=== PATIENT | male | born 1970 | race Hispanic/Latino ===

== ENCOUNTER 2018-07-25 08:13 | Inpatient (IN) | payer OTHER | END 2018-07-27 16:49 | disposition home or self-care (01) | LOC: EDH 08:13 → EDHIP 07-26 00:31 → 2AH 07-26 00:41 → EDHIP 08:14 → 2AH 20:40 → EDHIP 21:16 → 2AH 22:59 | DX: G47.33 Obstructive sleep apnea (adult) (pediatric) (principal); Z68.43 Body mass index [BMI] 50.0-59.9, adult; R07.89 Other chest pain; E66.01 Morbid (severe) obesity due to excess calories; E78.5 Hyperlipidemia, unspecified ==

== ENCOUNTER 2018-08-15 16:57 | Emergency (ER) | payer SELFPAY ==
[2018-08-15 17:50] LABS: BASOPHILS % (AUTO) 1.2 % (0.0-5.0); EOSINOPHILS % (AUTO) 1.2 % (0.0-8.0); HEMATOCRIT 44.9 % (42-54); LYMPHOCYTES % (AUTO) 20.5 % (21.0-51.0); MEAN CORPUSCULAR HEMOGLOBIN 29.8 pg (27.0-33.0); MEAN CORPUSCULAR VOLUME 90.1 fL (79-99); NEUTROPHILS % (AUTO) 71.1 % (40.0-77.0); PLATELET COUNT (AUTO) 262 K/uL (130-400); RED BLOOD CELL COUNT(AUTO) 4.99 MIL/uL (4.50-6.20); RED CELL DISTRIBUTION WIDTH 12.9 % (11.0-15.5); WHITE BLOOD COUNT (AUTO) 13.2 K/uL (4.8-10.8)
[2018-08-15 18:01] LABS: APPEARANCE,URINE Clear (CLEAR); BILIRUBIN,URINE Negative (NEGATIVE); COLOR,URINE Yellow (YELLOW); GLUCOSE, URINE (UA) Negative (NEGATIVE); KETONES,URINE Negative (NEGATIVE); LEUKOCYTE ESTERASE ,URINE Negative (NEGATIVE); NITRATE,URINE Negative (NEGATIVE); OCCULT BLOOD,URINE Negative (NEGATIVE); PROTEIN,URINE Negative (NEGATIVE)
[2018-08-15 18:01] LABS: INR 0.95 (0.85-1.15)
[2018-08-15 18:13] LABS: CREATININE 0.9 mg/dL (0.5-1.5); POTASSIUM 4.4 mmol/L (3.5-5.1)
[2018-08-15 18:17] LABS: BILIRUBIN,TOTAL 0.7 mg/dL (0.2-1.0)
[2018-08-15 18:18] LABS: ALBUMIN 3.5 g/dL (3.5-5.0)
[2018-08-15 18:24] LABS: AMPHET/METH SCREEN,URINE NEGATIVE (NEGATIVE); BARBITURATE SCREEN, URINE NEGATIVE (NEGATIVE); BENZODIAZEPINES SCREEN,URINE NEGATIVE (NEGATIVE); CANNABINOID SCREEN,URINE NEGATIVE (NEGATIVE); COCAINE SCREEN,URINE NEGATIVE (NEGATIVE); OPIATE SCREEN,URINE NEGATIVE (NEGATIVE); PHENCYCLIDINE SCREEN,URINE NEGATIVE (NEGATIVE)
[2018-08-15] MEDS ORDERED: TRAMADOL HCL 50 MG TABLET ONE (19:42)
== END 2018-08-15 20:17 | disposition home or self-care (01) ==
LOC: EDH 16:57
DX: M25.561 Pain in right knee (principal); M25.562 Pain in left knee; M54.5 Low back pain; G89.29 Other chronic pain; I10 Essential (primary) hypertension; Z98.890 Other specified postprocedural states; Z87.891 Personal history of nicotine dependence; W18.39XA Other fall on same level, initial encounter; Y93.89 Activity, other specified; Y92.89 Other specified places as the place of occurrence of the external cause; Y99.8 Other external cause status
CPT/HCPCS: 36415; 72131; 73562; 80053; 80305; 81003; 82550; 84484; 85025; 85610; 85730; 93005

== ENCOUNTER 2018-09-04 16:56 | Emergency (ER) | payer OTHER ==
[2018-09-04 17:58] LABS: BASOPHILS % (AUTO) 0.8 % (0.0-5.0); EOSINOPHILS % (AUTO) 1.6 % (0.0-8.0); HEMATOCRIT 47.4 % (42-54); MEAN CORPUSCULAR HEMOGLOBIN 30.2 pg (27.0-33.0); MEAN CORPUSCULAR HGB CONC 33.4 g/dL (32.0-36.0); MEAN CORPUSCULAR VOLUME 90.2 fL (79-99); MONOCYTES % (AUTO) 8.4 % (3.0-13.0); NEUTROPHILS % (AUTO) 65.2 % (40.0-77.0); NUCLEATED RED BLOOD CELLS 0.1 % (0.0-0.19); PLATELET COUNT (AUTO) 266 K/uL (130-400); RED BLOOD CELL COUNT(AUTO) 5.25 MIL/uL (4.50-6.20); RED CELL DISTRIBUTION WIDTH 13.5 % (11.0-15.5); WHITE BLOOD COUNT (AUTO) 10.7 K/uL (4.8-10.8)
[2018-09-04 18:18] LABS: CREATININE 0.8 mg/dL (0.5-1.5); POTASSIUM 4.4 mmol/L (3.5-5.1)
[2018-09-04 18:23] LABS: ALBUMIN 3.6 g/dL (3.5-5.0); BILIRUBIN,TOTAL 0.4 mg/dL (0.2-1.0)
[2018-09-04] MEDS ORDERED: CYCLOBENZAPRINE HCL 10 MG TABLET ONE (18:50)
[2018-09-04] MEDS ORDERED: KETOROLAC TROMETHAMINE 30MG/ML ONE (18:50)
== END 2018-09-04 20:08 | disposition home or self-care (01) ==
LOC: EDH 16:56
DX: R07.89 Other chest pain (principal); M62.838 Other muscle spasm; I10 Essential (primary) hypertension
CPT/HCPCS: 36415; 71045; 72040; 80053; 84484 ×2; 85025; 93005 ×2; 96374; 99284; J1885

== ENCOUNTER 2018-09-18 13:48 | Emergency (ER) | payer SELFPAY ==
[2018-09-18] MEDS ORDERED: FAMOTIDINE/PF 20 MG/2 ML VIAL IV ONE (15:20)
[2018-09-18 15:31] LABS: BASOPHILS % (AUTO) 0.9 % (0.0-5.0); EOSINOPHILS % (AUTO) 1.3 % (0.0-8.0); HEMATOCRIT 49.1 % (42-54); LYMPHOCYTES % (AUTO) 25.1 % (21.0-51.0); MEAN CORPUSCULAR HEMOGLOBIN 29.9 pg (27.0-33.0); MEAN CORPUSCULAR HGB CONC 33.1 g/dL (32.0-36.0); MEAN CORPUSCULAR VOLUME 90.3 fL (79-99); MONOCYTES % (AUTO) 7.1 % (3.0-13.0); NEUTROPHILS % (AUTO) 65.6 % (40.0-77.0); PLATELET COUNT (AUTO) 275 K/uL (130-400); RED BLOOD CELL COUNT(AUTO) 5.44 MIL/uL (4.50-6.20); RED CELL DISTRIBUTION WIDTH 13.1 % (11.0-15.5); WHITE BLOOD COUNT (AUTO) 11.6 K/uL (4.8-10.8)
[2018-09-18 15:36] LABS: APPEARANCE,URINE Clear (CLEAR); BILIRUBIN,URINE Negative (NEGATIVE); COLOR,URINE Yellow (YELLOW); GLUCOSE, URINE (UA) Negative (NEGATIVE); KETONES,URINE Trace mg/dL (NEGATIVE); LEUKOCYTE ESTERASE ,URINE Negative (NEGATIVE); NITRATE,URINE Negative (NEGATIVE); OCCULT BLOOD,URINE Negative (NEGATIVE); PH,URINE 5.5 (5.0-8.0); PROTEIN,URINE Negative (NEGATIVE)
[2018-09-18 15:47] LABS: CREATININE 0.8 mg/dL (0.5-1.5); POTASSIUM 4.1 mmol/L (3.5-5.1)
[2018-09-18 15:51] LABS: ALBUMIN 3.8 g/dL (3.5-5.0); BILIRUBIN,DIRECT 0.1 mg/dL (0.0-0.3); BILIRUBIN,TOTAL 0.6 mg/dL (0.2-1.0); TOTAL PROTEIN, SERUM 8.2 g/dL (6.0-8.3)
== END 2018-09-18 17:19 | disposition home or self-care (01) ==
LOC: EDH 13:48
DX: R10.13 Epigastric pain (principal); B96.81 Helicobacter pylori [H. pylori] as the cause of diseases classified elsewhere; I10 Essential (primary) hypertension; Z72.0 Tobacco use
CPT/HCPCS: 36415; 80048; 80076; 81003; 83690; 85025; 86677; 96365; 96366; 99283; J3490

== ENCOUNTER → 2021-03-03 | Outpatient (CLI) | payer OTHER ==
[~2021-03-03] VITALS: Ht 17.8 cm; Wt 186.0 kg
[~2021-03-03] MED LIST: CITA10TA89 PO; LOSA50TA64 PO; METO-408 PO
== END | disposition home or self-care (01) ==
LOC: DAH 10:00
PROVIDERS: ATTEND Family Medicine
DX: Z71.3 Dietary counseling and surveillance (principal)
CPT/HCPCS: 97802

== ENCOUNTER 2021-04-22 08:06 | Day surgery (SDC) | payer MEDICARE, OTHER ==
[2021-04-22] VITALS (7 sets, daily range): BP systolic 113–154; BP diastolic 73–94
[~2021-04-22] VITALS: Ht 170.2 cm; Wt 190.5 kg
[2021-04-22] MEDS ORDERED: 0.9%NACL 1000ML 1,000 ML IV ONE (08:13)
[2021-04-22] MEDS ORDERED: LOSA50TA64 PO (08:54)
[2021-04-22] MEDS ORDERED: METO-408 PO (08:54)
[2021-04-22] MEDS ORDERED: CITA10TA89 PO (08:54)
[2021-04-22] MEDS ORDERED: LIDOCAINE PF 100MG/5ML (2%) SYRINGE 5ML ONE (10:13)
[2021-04-22] MEDS ORDERED: MIDAZOLAM HCL 1 MG/ML 2ML VIAL ONE (10:14)
[2021-04-22] MEDS ORDERED: PROPOFOL 10 MG/ML 20ML VIAL IV ONE (10:14)
[2021-04-22] MEDS ORDERED: GLYCOPYRROLATE 1 MG/5 ML SYRINGE ONE (10:14)
[2021-04-22] MEDS ORDERED: KETAMINE 50MG/ML SYRINGE 50 MG/ML DISP.SYRIN IV ONE (10:14)
[2021-06-24] MEDS ORDERED: ESCITA PO (10:18)
[2021-06-24] MEDS ORDERED: ACET-2521 PO (10:18)
[2021-06-24] MEDS ORDERED: IRON PO (10:18)
== END 2021-04-22 11:23 | disposition home or self-care (01) ==
LOC: DAH 08:06
PROVIDERS: ATTEND Surgery
DX: K21.9 Gastro-esophageal reflux disease without esophagitis (principal); Z20.822 Contact with and (suspected) exposure to COVID-19; I10 Essential (primary) hypertension; E66.01 Morbid (severe) obesity due to excess calories; F32.9 Major depressive disorder, single episode, unspecified; F41.9 Anxiety disorder, unspecified; Z82.49 Family history of ischemic heart disease and other diseases of the circulatory system; Z82.3 Family history of stroke; Z79.899 Other long term (current) drug therapy; Z68.44 Body mass index [BMI] 60.0-69.9, adult
CPT/HCPCS: 43235; 71045; 87635; 93005; A4215 ×2; A4221; A4222; A4223; A4606; A4620; A4657; A4663; C9803; J2001; J2250; J2704; J3490 ×2; J7030

== ENCOUNTER 2021-06-27 08:20 | Inpatient (IN) | payer OTHER ==
[2021-06-23 14:42] LABS: BASOPHILS % (AUTO) 0.7 % (0.0-5.0); EOSINOPHILS % (AUTO) 0.9 % (0.0-8.0); HEMATOCRIT 51.4 % (42-54); LYMPHOCYTES % (AUTO) 19.1 % (21.0-51.0); MEAN CORPUSCULAR HGB CONC 32.3 g/dL (32.0-36.0); MEAN CORPUSCULAR VOLUME 92.8 fL (79-99); MONOCYTES % (AUTO) 6.4 % (3.0-13.0); NEUTROPHILS % (AUTO) 72.1 % (40.0-77.0); PLATELET COUNT (AUTO) 260 K/uL (130-400); RED BLOOD CELL COUNT(AUTO) 5.54 MIL/uL (4.50-6.20); RED CELL DISTRIBUTION WIDTH 12.4 % (11.0-15.5); WHITE BLOOD COUNT (AUTO) 13.3 K/uL (4.8-10.8)
[2021-06-23 14:52] LABS: CREATININE 0.9 mg/dL (0.5-1.5)
[2021-06-23 14:55] LABS: INR 1.1 (0.85-1.15); PROTHROMBIN TIME 11.9 SEC (9.6-11.6)
[2021-06-24] MEDS: CEFAZOLIN SODIUM 1 GM VIAL IVP SCH (06:00)
[2021-06-24 09:36] VITALS: BP 163/92
[2021-06-25] MEDS: CEFAZOLIN SODIUM 1 GM VIAL IVP SCH (06:00)
[~2021-06-27] VITALS: Ht 170.2 cm; Wt 190.1 kg
[2021-06-27] VITALS (25 sets, daily range): BP systolic 126–177; BP diastolic 70–97
[2021-06-27] MEDS: CEFAZOLIN SODIUM 1 GM VIAL IVP SCH ×3 (06:00→15:47)
[~2021-06-27 08:20] MED LIST changes: +ACET-2521 PO; -CITA10TA89 PO; +ESCITA PO; +IRON PO
[2021-06-27] MEDS: 0.9%NACL 1000ML 1,000 ML IV SCH ×2 (09:38→14:55)
[2021-06-27] MEDS ORDERED: ESCI-8 PO (09:49)
[2021-06-27] MEDS ORDERED: BUPIVACAINE/PF 0.5% 30ML VIAL ONE (11:58)
[2021-06-27] MEDS ORDERED: SCOPOLAMINE HYDROBROMIDE 1 EACH ADH..PATCH TD ONE (12:20)
[2021-06-27] MEDS ORDERED: DEXMEDETOMIDINE HCL 200 MCG/2 ML VIAL IV ONE (12:21)
[2021-06-27] MEDS ORDERED: MIDAZOLAM HCL 1 MG/ML 2ML VIAL ONE (12:22)
[2021-06-27] MEDS ORDERED: ONDANSETRON 4MG INJ ONE ×2 (12:22→13:34)
[2021-06-27] MEDS ORDERED: PROPOFOL 10 MG/ML 20ML VIAL IV ONE ×2 (12:24→13:56)
[2021-06-27] MEDS ORDERED: LIDOCAINE PF 100MG/5ML (2%) SYRINGE 5ML ONE (12:24)
[2021-06-27] MEDS ORDERED: SUCCINYLCHOLINE 200MG/10ML SYR ONE (12:24)
[2021-06-27] MEDS ORDERED: ROCURONIUM 10MG/1ML SYR 10 MG/ML ML ONE (12:24)
[2021-06-27] MEDS ORDERED: MAGNESIUM SULFATE 1 GM/2 ML VIAL ONE (12:37)
[2021-06-27] MEDS ORDERED: CEFAZOLIN SODIUM 1 GM VIAL ONE (12:46)
[2021-06-27] MEDS ORDERED: EPHEDRINE SULFATE 50 MG/ML AMPULE ONE (13:24)
[2021-06-27] MEDS ORDERED: DEXAMETHASONE SOD PHOSPHATE 10MG/ML 1ML VIAL ONE (13:40)
[2021-06-27] MEDS ORDERED: MEPERIDINE-PF 25 MG/ML SYG ONE ×3 (14:24→15:09)
[2021-06-27] MEDS ORDERED: GLYCOPYRROLATE 1 MG/5 ML SYRINGE ONE (14:26)
[2021-06-27] MEDS ORDERED: NEOSTIGMINE 5MG/5ML SYR IV ONE (14:26)
[2021-06-27] MEDS ORDERED: MORPHINE 5 MG/ML VIAL (5MG OR GREATER DOSE) IVP PRN (14:30)
[2021-06-27] MEDS ORDERED: CEFAZOLIN SODIUM 100 GM IV SCH ×2 (14:30→20:45)
[2021-06-27] MEDS ORDERED: SUGAMMADEX SODIUM 200 MG/2 ML VIAL IV ONE (14:37)
[2021-06-27] MEDS ORDERED: PHARMACY COMMUNICATION MISC SCH (15:30)
[2021-06-27] MEDS ORDERED: COMPOUND IV REFRIGERATED 1 EACH IVSOLN MISC PRN (16:00)
[2021-06-27] MEDS: LACTATED RINGERS 1000ML 1,000 ML IV SCH ×2 (16:51→22:30)
[2021-06-27] MEDS: ONDANSETRON 4MG INJ IVP PRN (19:12)
[2021-06-27] MEDS: FAMOTIDINE 20MG VIAL IV SCH (20:09)
[2021-06-27] MEDS: MORPHINE 4 MG SYG IVP PRN (20:13)
[2021-06-27] MEDS: ENOXAPARIN SODIUM 30 MG/0.3 ML SQ SCH (20:15)
[2021-06-27] MEDS: CEFAZOLIN SODIUM 3 GM in 0.9%NACL 100ML 100 ML IVP SCH (23:36)
[2021-06-28] MEDS: ONDANSETRON 4MG INJ IVP PRN ×4 (01:29→22:54)
[2021-06-28] MEDS: MORPHINE 4 MG SYG IVP PRN ×5 (01:31→22:56)
[2021-06-28] MEDS ORDERED: LOSARTAN 50 MG TABLET ONE (03:48)
[2021-06-28] MEDS: LOSARTAN 50 MG TABLET PO SCH ×2 (03:50→09:17)
[2021-06-28 04:40] VITALS: BP 162/108
[2021-06-28] MEDS: LACTATED RINGERS 1000ML 1,000 ML IV SCH ×3 (05:36→22:56)
[2021-06-28 05:48] LABS: BASOPHILS % (AUTO) 0.1 % (0.0-5.0); HEMATOCRIT 44.9 % (42-54); LYMPHOCYTES % (AUTO) 11.1 % (21.0-51.0); MEAN CORPUSCULAR HEMOGLOBIN 29.7 pg (27.0-33.0); MEAN CORPUSCULAR HGB CONC 31.6 g/dL (32.0-36.0); MEAN CORPUSCULAR VOLUME 93.9 fL (79-99); MONOCYTES % (AUTO) 7.4 % (3.0-13.0); PLATELET COUNT (AUTO) 306 K/uL (130-400); RED BLOOD CELL COUNT(AUTO) 4.78 MIL/uL (4.50-6.20); RED CELL DISTRIBUTION WIDTH 11.9 % (11.0-15.5); WHITE BLOOD COUNT (AUTO) 16.2 K/uL (4.8-10.8)
[2021-06-28 06:03] LABS: CREATININE 0.9 mg/dL (0.5-1.5); POTASSIUM 4.5 mmol/L (3.5-5.1)
[2021-06-28] MEDS: CEFAZOLIN SODIUM 3 GM in 0.9%NACL 100ML 100 ML IVP SCH (06:15)
[2021-06-28 07:52] VITALS: BP 155/91
[2021-06-28] MEDS ORDERED: 0.9%NACL 1000ML 660 ML IV SCH (08:30)
[2021-06-28] MEDS: FAMOTIDINE 20MG VIAL IV SCH ×2 (09:17→20:04)
[2021-06-28] MEDS: METOPROLOL SUCCINATE 50 MG TAB.SR.24H PO SCH (09:17)
[2021-06-28] MEDS: ENOXAPARIN SODIUM 30 MG/0.3 ML SQ SCH ×2 (09:18→20:09)
[2021-06-28 11:12] VITALS: BP 137/107
[2021-06-28 15:58] VITALS: BP 136/66
[2021-06-28 20:34] VITALS: BP 143/75
[2021-06-28 23:23] VITALS: BP 163/87
[2021-06-29] MEDS ORDERED: KETOROLAC 30MG VIAL (30MG/ML) IV PRN (02:00)
[2021-06-29] MEDS: METOCLOPRAMIDE 10 MG/2 ML VIAL IVP SCH ×4 (02:02→18:58)
[2021-06-29] MEDS ORDERED: HYDROMORPHONE 1 MG INJ IVP PRN (03:30)
[2021-06-29 04:58] LABS: BASOPHILS % (AUTO) 0.3 % (0.0-5.0); LYMPHOCYTES % (AUTO) 8.9 % (21.0-51.0); MEAN CORPUSCULAR HEMOGLOBIN 30.8 pg (27.0-33.0); MEAN CORPUSCULAR HGB CONC 31.8 g/dL (32.0-36.0); NEUTROPHILS % (AUTO) 82.1 % (40.0-77.0); PLATELET COUNT (AUTO) 270 K/uL (130-400); RED BLOOD CELL COUNT(AUTO) 4.02 MIL/uL (4.50-6.20); RED CELL DISTRIBUTION WIDTH 12.3 % (11.0-15.5); WHITE BLOOD COUNT (AUTO) 20.4 K/uL (4.8-10.8)
[2021-06-29 05:02] VITALS: BP 160/76
[2021-06-29 05:23] LABS: ALBUMIN 3.3 g/dL (3.5-5.0); BILIRUBIN,TOTAL 0.3 mg/dL (0.2-1.0); CREATININE 0.9 mg/dL (0.5-1.5); POTASSIUM 4.6 mmol/L (3.5-5.1); TOTAL PROTEIN, SERUM 7.4 g/dL (6.0-8.3)
[2021-06-29] MEDS: LACTATED RINGERS 1000ML 1,000 ML IV SCH (06:40)
[2021-06-29 07:42] VITALS: BP 125/65
[2021-06-29] MEDS: METOPROLOL SUCCINATE 50 MG TAB.SR.24H PO SCH (09:00)
[2021-06-29] MEDS: ENOXAPARIN SODIUM 30 MG/0.3 ML SQ SCH ×2 (09:00→21:47)
[2021-06-29] MEDS: FAMOTIDINE 20MG VIAL IV SCH ×2 (09:28→21:47)
[2021-06-29] MEDS: LOSARTAN 50 MG TABLET PO SCH (09:56)
[2021-06-29 11:13] VITALS: BP 155/73
[2021-06-29 16:18] VITALS: BP 141/72
[2021-06-29 20:00] VITALS: BP 135/72
[2021-06-30] VITALS: BP 140/68
[2021-06-30] MEDS: METOCLOPRAMIDE 10 MG/2 ML VIAL IVP SCH ×2 (00:40→05:35)
[2021-06-30 04:00] VITALS: BP_SYST 112; BP_SYST 132; BP_DIAS 60; BP_DIAS 75
[2021-06-30 05:50] LABS: BASOPHILS % (AUTO) 0.6 % (0.0-5.0); EOSINOPHILS % (AUTO) 0.7 % (0.0-8.0); HEMATOCRIT 41.2 % (42-54); LYMPHOCYTES % (AUTO) 29.5 % (21.0-51.0); MEAN CORPUSCULAR HEMOGLOBIN 30.3 pg (27.0-33.0); MEAN CORPUSCULAR HGB CONC 31.8 g/dL (32.0-36.0); MEAN CORPUSCULAR VOLUME 95.4 fL (79-99); NEUTROPHILS % (AUTO) 61.6 % (40.0-77.0); PLATELET COUNT (AUTO) 290 K/uL (130-400); RED BLOOD CELL COUNT(AUTO) 4.32 MIL/uL (4.50-6.20); RED CELL DISTRIBUTION WIDTH 12.2 % (11.0-15.5); WHITE BLOOD COUNT (AUTO) 17.3 K/uL (4.8-10.8)
[2021-06-30] MEDS: LACTATED RINGERS 1000ML 1,000 ML IV SCH (06:01)
[2021-06-30 06:14] LABS: ALBUMIN 3.3 g/dL (3.5-5.0); BILIRUBIN,TOTAL 0.5 mg/dL (0.2-1.0); CREATININE 1.1 mg/dL (0.5-1.5); POTASSIUM 3.7 mmol/L (3.5-5.1); TOTAL PROTEIN, SERUM 7.3 g/dL (6.0-8.3)
[2021-06-30 08:06] VITALS: BP 121/67
[2021-06-30] MEDS: METOPROLOL SUCCINATE 50 MG TAB.SR.24H PO SCH (10:14)
[2021-06-30] MEDS: LOSARTAN 50 MG TABLET PO SCH (10:14)
[2021-06-30] MEDS: FAMOTIDINE 20MG VIAL IV SCH (10:14)
[2021-06-30] MEDS: ENOXAPARIN SODIUM 30 MG/0.3 ML SQ SCH (10:15)
== END 2021-06-30 12:00 | disposition home or self-care (01) | DRG 621 ==
LOC: EDSTATUS 08:20 → DAHIP 08:49 → 3AH 16:01
PROVIDERS: ADMIT Surgery; ATTEND Surgery
PROC: 0D164ZA Bypass Stomach to Jejunum, Percutaneous Endoscopic Approach (ICD-10-PCS; principal; 2021-06-27 12:22)
PROC: 0DJ08ZZ Inspection of Upper Intestinal Tract, Via Natural or Artificial Opening Endoscopic (ICD-10-PCS; 2021-06-27 12:22)
DX: E66.01 Morbid (severe) obesity due to excess calories (principal); Z20.822 Contact with and (suspected) exposure to COVID-19; F41.9 Anxiety disorder, unspecified; F32.A Depression, unspecified; I10 Essential (primary) hypertension; Z68.44 Body mass index [BMI] 60.0-69.9, adult; K21.9 Gastro-esophageal reflux disease without esophagitis; Z79.899 Other long term (current) drug therapy; Z82.3 Family history of stroke; Z82.49 Family history of ischemic heart disease and other diseases of the circulatory system
CPT/HCPCS: 36415; 43235; 71045; 80048; 80053; 82948; 85025; 85610; 86850; 86900; 86901; 86923; 87635; 93005; 94660; 97039; G0378; J0330; J0690; J1100; J1170; J1650; J1885; J2001; J2175; J2250; J2270; J2405; J2704; J2710; J2765; J3475; J3490; J7030; J7120

== ENCOUNTER 2021-08-12 21:06 | Observation (INO) | payer OTHER ==
[~2021-08-12] VITALS: Ht 170.2 cm; Wt 166.2 kg
[~2021-08-12 21:06] MED LIST changes: +ESCI-8 PO; -ESCITA PO
[2021-08-12] MEDS ORDERED: METOCLOPRAMIDE 10 MG/2 ML VIAL IVP ONE (21:30)
[2021-08-12] MEDS ORDERED: FAMOTIDINE 20MG VIAL IV ONE (21:30)
[2021-08-12] MEDS ORDERED: 0.9%NACL 1000ML 1,000 ML IV ONE ×2 (21:30→22:30)
[2021-08-12] MEDS ORDERED: DiphenhydrAMINE HCL 50 MG/ML VIAL IV ONE (21:30)
[2021-08-12 21:52] LABS: BASOPHILS % (AUTO) 0.5 % (0.0-5.0); EOSINOPHILS % (AUTO) 0.2 % (0.0-8.0); HEMATOCRIT 45.1 % (42-54); LYMPHOCYTES % (AUTO) 13.5 % (21.0-51.0); MEAN CORPUSCULAR HGB CONC 31.3 g/dL (32.0-36.0); MEAN CORPUSCULAR VOLUME 92.6 fL (79-99); MONOCYTES % (AUTO) 4.6 % (3.0-13.0); NEUTROPHILS % (AUTO) 80.7 % (40.0-77.0); PLATELET COUNT (AUTO) 347 K/uL (130-400); RED BLOOD CELL COUNT(AUTO) 4.87 MIL/uL (4.50-6.20); RED CELL DISTRIBUTION WIDTH 12.9 % (11.0-15.5); WHITE BLOOD COUNT (AUTO) 12.2 K/uL (4.8-10.8)
[2021-08-12 22:08] LABS: POTASSIUM 3.7 mmol/L (3.5-5.1)
[2021-08-12 22:12] LABS: ALBUMIN 3.6 g/dL (3.5-5.0); BILIRUBIN,TOTAL 0.7 mg/dL (0.2-1.0); TOTAL PROTEIN, SERUM 8.1 g/dL (6.0-8.3)
[2021-08-12] MEDS ORDERED: ONDANSETRON 4MG INJ IVP ONE (22:30)
[2021-08-12] MEDS ORDERED: HALOPERIDOL INJ 5 MG/ML VIAL IV ONE (23:00)
[2021-08-12] MEDS ORDERED: IOHEXOL 350 MG/ML 100ML INFUS..BTL IV ONE (23:08)
[2021-08-12] MEDS ORDERED: PROCHLORPERAZINE 10MG/2ML INJ ONE (23:54)
[2021-08-13] MEDS ORDERED: PROCHLORPERAZINE EDISYLATE 5 MG/ML 2 ML VIAL IVP ONE
[2021-08-13 00:07] LABS: APPEARANCE,URINE CLEAR (CLEAR); BILIRUBIN,URINE NEGATIVE (NEGATIVE); COLOR,URINE YELLOW (YELLOW); GLUCOSE, URINE (UA) NEGATIVE (NEGATIVE); KETONES,URINE 15 mg/dL (NEGATIVE); LEUKOCYTE ESTERASE ,URINE NEGATIVE (NEGATIVE); NITRATE,URINE NEGATIVE (NEGATIVE); OCCULT BLOOD,URINE NEGATIVE (NEGATIVE); PH,URINE 6.5 (5.0-8.0); PROTEIN,URINE NEGATIVE (NEGATIVE); UROBILINOGEN,URINE 0.2 mg/dL (0.2-1.0)
[2021-08-13 00:25] LABS: AMPHET/METH SCREEN,URINE NEGATIVE (NEGATIVE); BARBITURATE SCREEN, URINE NEGATIVE (NEGATIVE); BENZODIAZEPINES SCREEN,URINE NEGATIVE (NEGATIVE); CANNABINOID SCREEN,URINE NEGATIVE (NEGATIVE); COCAINE SCREEN,URINE NEGATIVE (NEGATIVE); OPIATE SCREEN,URINE NEGATIVE (NEGATIVE); PHENCYCLIDINE SCREEN,URINE NEGATIVE (NEGATIVE)
[2021-08-13 00:47] LABS: BACTERIA,URINE Moderate /HPF (None Seen); RBC,URINE 0-1 /HPF (0-1)
[2021-08-13 00:48] LABS: MUCUS,URINE Many LPF (None Seen); SQUAMOUS EPITHELIAL CELL,UR Moderate /HPF (0-2)
[2021-08-13] MEDS ORDERED: 0.9%NACL 1000ML 1,000 ML IV ONE (01:30)
[2021-08-13] MEDS: PANTOPRAZOLE 40 MG/VIAL IVP SCH ×2 (02:20→08:00)
[2021-08-13] MEDS ORDERED: CLONIDINE HCL 0.1 MG TABLET PO PRN (02:30)
[2021-08-13] MEDS: 0.9%NACL 1000ML 1,000 ML IV SCH ×3 (02:30→18:30)
[2021-08-13] MEDS ORDERED: ONDANSETRON 4MG INJ IVP PRN (02:30)
[2021-08-13 02:43] VITALS: BP 163/91
[2021-08-13] MEDS: CEFTRIAXONE 1G VIAL IVP SCH (06:10)
[2021-08-13] MEDS ORDERED: DEXTROSE 50%-WATER 50 ML DISP.SYRIN IV PRN (06:30)
[2021-08-13] MEDS ORDERED: MORPHINE 2 MG SYG IVP PRN (06:30)
[2021-08-13] MEDS ORDERED: GLUCAGON 1MG KIT 1 MG ML IM PRN (06:30)
[2021-08-13] MEDS ORDERED: ACETAMINOPHEN 325 MG TAB PO PRN (06:30)
[2021-08-13 06:36] LABS: HEMOGLOBIN A1C 5.6 % (4.0-6.0)
[2021-08-13] MEDS: INSULIN HUMULIN R 100 UNIT/ML 3ML SQ SCH ×4 (07:05→21:00)
[2021-08-13 07:10] VITALS: BP 110/66
[2021-08-13] MEDS ORDERED: HYDRALAZINE 20MG/ML VIAL IV PRN (07:30)
[2021-08-13 07:39] LABS: MEAN CORPUSCULAR HEMOGLOBIN 29.2 pg (27.0-33.0); MEAN CORPUSCULAR HGB CONC 32.1 g/dL (32.0-36.0); MEAN CORPUSCULAR VOLUME 90.7 fL (79-99); RED BLOOD CELL COUNT(AUTO) 4.63 MIL/uL (4.50-6.20); RED CELL DISTRIBUTION WIDTH 12.9 % (11.0-15.5); WHITE BLOOD COUNT (AUTO) 10.8 K/uL (4.8-10.8)
[2021-08-13 07:51] LABS: CREATININE 0.8 mg/dL (0.5-1.5); POTASSIUM 3.7 mmol/L (3.5-5.1)
[2021-08-13] MEDS: METOPROLOL SUCCINATE 50 MG TAB.SR.24H PO SCH (08:29)
[2021-08-13] MEDS: LOSARTAN 50 MG TABLET PO SCH (08:29)
[2021-08-13 11:00] VITALS: BP 132/74
[2021-08-13 15:05] VITALS: BP 127/70
[2021-08-13 20:00] VITALS: BP 135/79
[2021-08-14] VITALS: BP 128/72
[2021-08-14] MEDS: 0.9%NACL 1000ML 1,000 ML IV SCH (02:30)
[2021-08-14 04:00] VITALS: BP 140/71
[2021-08-14] MEDS: CEFTRIAXONE 1G VIAL IVP SCH (06:15)
[2021-08-14] MEDS: INSULIN HUMULIN R 100 UNIT/ML 3ML SQ SCH (06:20)
[2021-08-14 07:15] VITALS: BP 132/77
[2021-08-14] MEDS: LOSARTAN 50 MG TABLET PO SCH (09:23)
[2021-08-14] MEDS: PANTOPRAZOLE 40 MG/VIAL IVP SCH (09:24)
[2021-08-14] MEDS: METOPROLOL SUCCINATE 50 MG TAB.SR.24H PO SCH (10:36)
[2021-08-14 11:05] VITALS: BP 131/78
== END 2021-08-14 14:39 | disposition home or self-care (01) ==
LOC: EDH 21:06 → INTOOBSV 08-13 01:26 → EDHIP 08-13 01:26 → 3DH 08-13 02:07
PROVIDERS: ADMIT Hospitalist; ATTEND Hospitalist
DX: R11.2 Nausea with vomiting, unspecified (principal); D72.829 Elevated white blood cell count, unspecified; K27.9 Peptic ulcer, site unspecified, unspecified as acute or chronic, without hemorrhage or perforation; I10 Essential (primary) hypertension; E11.9 Type 2 diabetes mellitus without complications; E66.01 Morbid (severe) obesity due to excess calories; Z68.43 Body mass index [BMI] 50.0-59.9, adult; Z98.84 Bariatric surgery status; Z79.899 Other long term (current) drug therapy
CPT/HCPCS: 36415 ×2; 74177; 80048; 80053; 80305; 81001; 82948 ×5; 83036; 83690; 84145; 85025; 85027; 87040 ×2; 87088; 93005; 96361 ×3; 96374; 96375 ×2; 96376 ×2; 99284; C9113 ×3; G0378 ×3; J0696 ×2; J0780; J1200; J1630 ×2; J2405; J2765; J3490; Q9967

== ENCOUNTER 2022-01-21 22:50 | Observation (INO) | payer OTHER ==
[~2022-01-21] VITALS: Ht 170.2 cm; Wt 138.8 kg
[2022-01-21 23:17] LABS: BASOPHILS % (AUTO) 0.3 % (0.0-5.0); EOSINOPHILS % (AUTO) 0.3 % (0.0-8.0); HEMATOCRIT 35.4 % (42-54); LYMPHOCYTES % (AUTO) 31.8 % (21.0-51.0); MEAN CORPUSCULAR HEMOGLOBIN 29.4 pg (27.0-33.0); MEAN CORPUSCULAR HGB CONC 32.5 g/dL (32.0-36.0); MEAN CORPUSCULAR VOLUME 90.5 fL (79-99); MONOCYTES % (AUTO) 5.4 % (3.0-13.0); NEUTROPHILS % (AUTO) 61.8 % (40.0-77.0); PLATELET COUNT (AUTO) 297 K/uL (130-400); RED BLOOD CELL COUNT(AUTO) 3.91 MIL/uL (4.50-6.20)
[2022-01-21 23:28] LABS: CREATININE 0.8 mg/dL (0.5-1.5); POTASSIUM 4.3 mmol/L (3.5-5.1)
[2022-01-21 23:29] LABS: INR 0.98 (0.85-1.15); PROTHROMBIN TIME 10.7 SEC (9.6-11.6)
[2022-01-21 23:30] LABS: PARTIAL THROMBOPLASTIN TIME 26.5 SEC (26.3-35.5)
[2022-01-21] MEDS ORDERED: PANTOPRAZOLE 40 MG/VIAL IVP ONE (23:30)
[2022-01-21 23:35] LABS: ALBUMIN 3.3 g/dL (3.5-5.0); TOTAL PROTEIN, SERUM 6.5 g/dL (6.0-8.3)
[2022-01-22] MEDS ORDERED: ACETAMINOPHEN 650 MG SUPPOSITORY RC PRN (01:00)
[2022-01-22] MEDS ORDERED: CLONIDINE HCL 0.1 MG TABLET PO PRN (01:00)
[2022-01-22] MEDS ORDERED: POTASSIUM CHLORIDE 20MEQ/100ML 100 ML IV PRN (01:00)
[2022-01-22] MEDS ORDERED: OCTREOTIDE ACETATE 500 MCG in 0.9%NACL 100ML 97.5 ML IV SCH (01:00)
[2022-01-22] MEDS ORDERED: GLUCAGON 1MG KIT 1 MG ML IM PRN (01:00)
[2022-01-22] MEDS ORDERED: LABETALOL 20MG SYG IV PRN (01:00)
[2022-01-22] MEDS ORDERED: ONDANSETRON 4MG INJ IVP PRN (01:00)
[2022-01-22] MEDS ORDERED: DEXTROSE 50%-WATER 50 ML DISP.SYRIN IV PRN (01:00)
[2022-01-22] MEDS: PANTOPRAZOLE 40MG INJ 80 MG in 0.9%NACL 100ML 100 ML IVP SCH ×3 (01:00→20:46)
[2022-01-22] MEDS: LACTATED RINGERS 1000ML 1,000 ML IV SCH ×2 (01:00→15:49)
[2022-01-22] MEDS ORDERED: MAGNESIUM 2GM PREMIX 50ML 50 ML IV PRN (01:00)
[2022-01-22] MEDS ORDERED: HYDRALAZINE 20MG/ML VIAL IV PRN (01:00)
[2022-01-22] MEDS ORDERED: OCTREOTIDE ACETATE 200 MCG/ML 5 ML VIAL ONE (01:05)
[2022-01-22 01:45] VITALS: BP 129/75
[2022-01-22] MEDS: ACETAMINOPHEN 325 MG TAB PO PRN (01:59)
[2022-01-22 04:00] VITALS: BP 107/65
[2022-01-22] MEDS: INSULIN HUMULIN R 100 UNIT/ML 3ML SQ SCH ×4 (06:01→20:46)
[2022-01-22 08:00] VITALS: BP 103/52
[2022-01-22 10:02] LABS: HEMATOCRIT 29.8 % (42-54); MEAN CORPUSCULAR HEMOGLOBIN 29.1 pg (27.0-33.0); MEAN CORPUSCULAR HGB CONC 31.5 g/dL (32.0-36.0); MEAN CORPUSCULAR VOLUME 92.3 fL (79-99); RED BLOOD CELL COUNT(AUTO) 3.23 MIL/uL (4.50-6.20); WHITE BLOOD COUNT (AUTO) 8.9 K/uL (4.8-10.8)
[2022-01-22 10:10] LABS: CREATININE 0.8 mg/dL (0.5-1.5); POTASSIUM 4.7 mmol/L (3.5-5.1)
[2022-01-22] MEDS ORDERED: COMPOUND IV REFRIGERATED 1 EACH IVSOLN MISC PRN (10:30)
[2022-01-22 12:00] VITALS: BP 98/62
[2022-01-22 16:00] VITALS: BP 102/45
[2022-01-22] MEDS ORDERED: OCTREOTIDE ACETATE 1,250 MCG in 0.9% NACL 250ML IV SCH (16:00)
[2022-01-22 20:47] VITALS: BP 96/60
[2022-01-23] VITALS (17 sets, daily range): BP systolic 81–127; BP diastolic 32–78
[2022-01-23] MEDS: LACTATED RINGERS 1000ML 1,000 ML IV SCH ×2 (04:25→18:30)
[2022-01-23 05:16] LABS: BASOPHILS % (AUTO) 0.3 % (0.0-5.0); EOSINOPHILS % (AUTO) 0.6 % (0.0-8.0); HEMATOCRIT 31.3 % (42-54); LYMPHOCYTES % (AUTO) 26.4 % (21.0-51.0); MEAN CORPUSCULAR HGB CONC 31.9 g/dL (32.0-36.0); MEAN CORPUSCULAR VOLUME 90.7 fL (79-99); MONOCYTES % (AUTO) 4.9 % (3.0-13.0); NEUTROPHILS % (AUTO) 67.5 % (40.0-77.0); PLATELET COUNT (AUTO) 232 K/uL (130-400); RED BLOOD CELL COUNT(AUTO) 3.45 MIL/uL (4.50-6.20); WHITE BLOOD COUNT (AUTO) 9.7 K/uL (4.8-10.8)
[2022-01-23 05:35] LABS: CREATININE 0.8 mg/dL (0.5-1.5); PHOSPHORUS 3.8 mg/dL (2.5-4.9)
[2022-01-23] MEDS ORDERED: PROPOFOL 10 MG/ML 20ML VIAL IV ONE (06:55)
[2022-01-23] MEDS ORDERED: GLYCOPYRROLATE 1 MG/5 ML SYRINGE ONE (07:00)
[2022-01-23] MEDS ORDERED: SIMETHICONE 40 MG/0.6 ML ML ONE (07:10)
[2022-01-23] MEDS: INSULIN HUMULIN R 100 UNIT/ML 3ML SQ SCH ×4 (07:30→20:11)
[2022-01-23] MEDS: PANTOPRAZOLE 40 MG TAB DR PO SCH (09:35)
[2022-01-23 10:02] LABS: BASOPHILS % (AUTO) 0.4 % (0.0-5.0); EOSINOPHILS % (AUTO) 1.1 % (0.0-8.0); HEMATOCRIT 32.1 % (42-54); LYMPHOCYTES % (AUTO) 28.6 % (21.0-51.0); MEAN CORPUSCULAR HEMOGLOBIN 28.8 pg (27.0-33.0); MEAN CORPUSCULAR HGB CONC 31.2 g/dL (32.0-36.0); MEAN CORPUSCULAR VOLUME 92.5 fL (79-99); MONOCYTES % (AUTO) 4.9 % (3.0-13.0); NEUTROPHILS % (AUTO) 64.6 % (40.0-77.0); PLATELET COUNT (AUTO) 230 K/uL (130-400); RED BLOOD CELL COUNT(AUTO) 3.47 MIL/uL (4.50-6.20); WHITE BLOOD COUNT (AUTO) 7.6 K/uL (4.8-10.8)
[2022-01-23] MEDS: ACETAMINOPHEN 325 MG TAB PO PRN (12:24)
[2022-01-23 15:46] LABS: BASOPHILS % (AUTO) 0.1 % (0.0-5.0); EOSINOPHILS % (AUTO) 0.4 % (0.0-8.0); HEMATOCRIT 30.7 % (42-54); LYMPHOCYTES % (AUTO) 13.3 % (21.0-51.0); MEAN CORPUSCULAR HEMOGLOBIN 28.9 pg (27.0-33.0); MEAN CORPUSCULAR HGB CONC 31.9 g/dL (32.0-36.0); MEAN CORPUSCULAR VOLUME 90.6 fL (79-99); MONOCYTES % (AUTO) 5.4 % (3.0-13.0); NEUTROPHILS % (AUTO) 80.3 % (40.0-77.0); PLATELET COUNT (AUTO) 239 K/uL (130-400); RED BLOOD CELL COUNT(AUTO) 3.39 MIL/uL (4.50-6.20); RED CELL DISTRIBUTION WIDTH 13.9 % (11.0-15.5); WHITE BLOOD COUNT (AUTO) 13.6 K/uL (4.8-10.8)
[2022-01-23 22:29] LABS: BASOPHILS % (AUTO) 0.2 % (0.0-5.0); EOSINOPHILS % (AUTO) 0.4 % (0.0-8.0); HEMATOCRIT 30.5 % (42-54); LYMPHOCYTES % (AUTO) 19.6 % (21.0-51.0); MEAN CORPUSCULAR HEMOGLOBIN 29.6 pg (27.0-33.0); MEAN CORPUSCULAR HGB CONC 32.5 g/dL (32.0-36.0); MONOCYTES % (AUTO) 5.7 % (3.0-13.0); NEUTROPHILS % (AUTO) 73.7 % (40.0-77.0); PLATELET COUNT (AUTO) 256 K/uL (130-400); RED BLOOD CELL COUNT(AUTO) 3.35 MIL/uL (4.50-6.20); RED CELL DISTRIBUTION WIDTH 13.9 % (11.0-15.5); WHITE BLOOD COUNT (AUTO) 13.4 K/uL (4.8-10.8)
[2022-01-24 00:41] VITALS: BP 105/66
[2022-01-24 04:17] VITALS: BP 111/69
[2022-01-24 05:14] LABS: BASOPHILS % (AUTO) 0.3 % (0.0-5.0); EOSINOPHILS % (AUTO) 0.7 % (0.0-8.0); HEMATOCRIT 31.1 % (42-54); MEAN CORPUSCULAR HEMOGLOBIN 29.2 pg (27.0-33.0); MEAN CORPUSCULAR HGB CONC 32.2 g/dL (32.0-36.0); MEAN CORPUSCULAR VOLUME 90.7 fL (79-99); MONOCYTES % (AUTO) 5.2 % (3.0-13.0); NEUTROPHILS % (AUTO) 64.4 % (40.0-77.0); PLATELET COUNT (AUTO) 226 K/uL (130-400); RED BLOOD CELL COUNT(AUTO) 3.43 MIL/uL (4.50-6.20); RED CELL DISTRIBUTION WIDTH 13.7 % (11.0-15.5); WHITE BLOOD COUNT (AUTO) 11.4 K/uL (4.8-10.8)
[2022-01-24] MEDS: LACTATED RINGERS 1000ML 1,000 ML IV SCH (05:40)
[2022-01-24] MEDS: INSULIN HUMULIN R 100 UNIT/ML 3ML SQ SCH (06:32)
[2022-01-24 06:40] LABS: ALBUMIN 2.7 g/dL (3.5-5.0); CREATININE 0.7 mg/dL (0.5-1.5); POTASSIUM 3.9 mmol/L (3.5-5.1); TOTAL PROTEIN, SERUM 6.2 g/dL (6.0-8.3)
[2022-01-24] MEDS: PANTOPRAZOLE 40 MG TAB DR PO SCH (06:42)
[2022-01-24] MEDS ORDERED: PANT40SU PO (08:23)
== END 2022-01-24 10:30 | disposition home or self-care (01) ==
LOC: EDH 22:50 → EDHIP 01-22 00:41 → 3AH 01-22 01:33
PROVIDERS: ADMIT Internal Medicine; ATTEND Internal Medicine
DX: K25.4 Chronic or unspecified gastric ulcer with hemorrhage (principal); Z20.822 Contact with and (suspected) exposure to COVID-19; K29.70 Gastritis, unspecified, without bleeding; K92.1 Melena; D62 Acute posthemorrhagic anemia; E11.9 Type 2 diabetes mellitus without complications; I25.10 Atherosclerotic heart disease of native coronary artery without angina pectoris; Z96.653 Presence of artificial knee joint, bilateral; Z98.84 Bariatric surgery status; G47.30 Sleep apnea, unspecified; Z79.899 Other long term (current) drug therapy
CPT/HCPCS: 96376 ×2; 99284; 84484; 80053 ×2; 83690; 85025 ×6; 85610; 85730; 86850; 86900; 82270; 36415 ×4; 93005; 96365; 96366; 96368; 80048 ×2; 85027; 86901; 82948 ×9; 83735 ×2; 84100; 87635; 43239; 43255; C9113 ×3; G0378 ×55; J7120 ×2; J2354 ×2; J7050; J2704; J3490

== ENCOUNTER → 2022-04-07 | Outpatient (CLI) | payer OTHER ==
[~2022-04-07] MED LIST changes: +PANT40SU PO
[2022-04-07 12:56] LABS: ALBUMIN 3.4 g/dL (3.5-5.0); CREATININE 0.8 mg/dL (0.5-1.5); POTASSIUM 4.7 mmol/L (3.5-5.1); TOTAL PROTEIN, SERUM 7.4 g/dL (6.0-8.3)
== END | disposition home or self-care (01) ==
LOC: LAB 08:53
PROVIDERS: ATTEND Student in an Organized Health Care Education/Training Program
DX: I10 Essential (primary) hypertension (principal)
CPT/HCPCS: 36415; 80053

== ENCOUNTER → 2022-04-19 | Outpatient (CLI) | payer OTHER ==
[~2022-04-19] MED LIST changes: +IOHEXOL 350 MG/ML 100ML INFUS..BTL IV ONE
== END | disposition home or self-care (01) ==
LOC: RAH 11:26
PROVIDERS: ATTEND Student in an Organized Health Care Education/Training Program
DX: R07.9 Chest pain, unspecified (principal); M47.815 Spondylosis without myelopathy or radiculopathy, thoracolumbar region
CPT/HCPCS: 75574; Q9967

== ENCOUNTER 2022-07-15 21:20 | Emergency (ER) | payer OTHER ==
[~2022-07-15] VITALS: Ht 170.2 cm; Wt 134.7 kg
[~2022-07-15 21:20] MED LIST changes: -IOHEXOL 350 MG/ML 100ML INFUS..BTL IV ONE
[2022-07-15] MEDS ORDERED: 0.9%NACL 1000ML 1,000 ML IV ONE (22:00)
[2022-07-15 22:31] LABS: BASOPHILS % (AUTO) 0.8 % (0.0-5.0); EOSINOPHILS % (AUTO) 1.4 % (0.0-8.0); HEMATOCRIT 44.3 % (42-54); LYMPHOCYTES % (AUTO) 32.9 % (21.0-51.0); MEAN CORPUSCULAR HEMOGLOBIN 29.5 pg (27.0-33.0); MEAN CORPUSCULAR HGB CONC 31.8 g/dL (32.0-36.0); MEAN CORPUSCULAR VOLUME 92.7 fL (79-99); MONOCYTES % (AUTO) 7.3 % (3.0-13.0); NEUTROPHILS % (AUTO) 57.1 % (40.0-77.0); PLATELET COUNT (AUTO) 257 K/uL (130-400); RED BLOOD CELL COUNT(AUTO) 4.78 MIL/uL (4.50-6.20); RED CELL DISTRIBUTION WIDTH 13.5 % (11.0-15.5); WHITE BLOOD COUNT (AUTO) 11.1 K/uL (4.8-10.8)
[2022-07-15 22:42] LABS: CREATININE 0.8 mg/dL (0.5-1.5)
[2022-07-15 22:44] LABS: INR 0.94 (0.85-1.15); PROTHROMBIN TIME 10.3 SEC (9.6-11.6)
[2022-07-15 22:45] LABS: PARTIAL THROMBOPLASTIN TIME 28.7 SEC (26.3-35.5)
[2022-07-15 22:47] LABS: ALBUMIN 3.3 g/dL (3.5-5.0); TOTAL PROTEIN, SERUM 6.7 g/dL (6.0-8.3)
[2022-07-16 00:53] VITALS: BP 117/75
== END 2022-07-16 01:41 | disposition home or self-care (01) ==
LOC: EDH 21:20
DX: K92.1 Melena (principal); E11.9 Type 2 diabetes mellitus without complications; R11.2 Nausea with vomiting, unspecified; I10 Essential (primary) hypertension; Z79.899 Other long term (current) drug therapy
CPT/HCPCS: 99284; 80053; 85025; 85610; 85730; 83605; 82270; 36415; 96360; 93005; J7030

== ENCOUNTER 2022-10-02 10:33 | Observation (INO) | payer OTHER ==
[~2022-10-02] VITALS: Ht 162.6 cm; Wt 125.3 kg
[~2022-10-02 10:33] MED LIST changes: -ACET-2521 PO; +BRIM2.5D OP; +GABA600T10 PO; +HYDR-4060 PO; +HYDR30CR77 RC; +IRON1TAB41 PO; +MULT-1296 PO; +ONDA-104 PO
[2022-10-02] MEDS ORDERED: ONDANSETRON 4MG INJ ONE (10:36)
[2022-10-02 10:58] LABS: BASOPHILS % (AUTO) 0.2 % (0.0-5.0); EOSINOPHILS % (AUTO) 0.5 % (0.0-8.0); HEMATOCRIT 48.5 % (42-54); LYMPHOCYTES % (AUTO) 20.8 % (21.0-51.0); MEAN CORPUSCULAR HEMOGLOBIN 30.4 pg (27.0-33.0); MEAN CORPUSCULAR HGB CONC 33.6 g/dL (32.0-36.0); MEAN CORPUSCULAR VOLUME 90.3 fL (79-99); MONOCYTES % (AUTO) 5.5 % (3.0-13.0); NEUTROPHILS % (AUTO) 72.7 % (40.0-77.0); PLATELET COUNT (AUTO) 311 K/uL (130-400); RED BLOOD CELL COUNT(AUTO) 5.37 MIL/uL (4.50-6.20); RED CELL DISTRIBUTION WIDTH 12.4 % (11.0-15.5); WHITE BLOOD COUNT (AUTO) 12.4 K/uL (4.8-10.8)
[2022-10-02] MEDS ORDERED: 0.9%NACL 1000ML 1,000 ML IV ONE (11:00)
[2022-10-02] MEDS ORDERED: MORPHINE 4 MG SYG IVP ONE (11:00)
[2022-10-02] MEDS ORDERED: FAMOTIDINE 20MG VIAL IV ONE (11:00)
[2022-10-02 11:06] LABS: CARBON DIOXIDE 23 mmol/L (21-32); CHLORIDE 103 mmol/L (101-111); CREATININE 0.7 mg/dL (0.5-1.5); GLOMERULAR FILTR. RATE CALC 110 mL/min (>90); GLUCOSE,RANDOM 108 mg/dL (70-105); POTASSIUM 3.5 mmol/L (3.5-5.1); SODIUM SERUM 136 mmol/L (136-145); UREA NITROGEN, BLOOD 6 mg/dL (7-18)
[2022-10-02 11:11] LABS: ALANINE AMINOTRANSFERASE 14 U/L (12-78); ALBUMIN 3.5 g/dL (3.5-5.0); ASPARTATE AMINOTRANSFERASE 8 U/L (10-37); TOTAL PROTEIN, SERUM 7.2 g/dL (6.0-8.3)
[2022-10-02 11:13] LABS: LIPASE < 50 U/L (114-286)
[2022-10-02] MEDS ORDERED: IOHEXOL-350 75 ML VIAL IV ONE (11:15)
[2022-10-02 12:26] LABS: APPEARANCE,URINE CLEAR (CLEAR); BILIRUBIN,URINE NEGATIVE (NEGATIVE); COLOR,URINE COLORLESS (YELLOW); GLUCOSE, URINE (UA) NEGATIVE (NEGATIVE); KETONES,URINE 10 mg/dL (NEGATIVE); LEUKOCYTE ESTERASE ,URINE NEGATIVE Leu/uL (NEGATIVE); NITRATE,URINE NEGATIVE (NEGATIVE); OCCULT BLOOD,URINE NEGATIVE (NEGATIVE); PROTEIN,URINE NEGATIVE (NEGATIVE); UROBILINOGEN,URINE 0.2 mg/dL (0.2-1.0)
[2022-10-02] MEDS ORDERED: DiphenhydrAMINE HCL 50 MG/ML VIAL IV ONE (12:30)
[2022-10-02] MEDS ORDERED: METOCLOPRAMIDE 10 MG/2 ML VIAL IVP ONE (12:30)
[2022-10-02 12:35] LABS: RBC,URINE 0-1 /HPF (0-1)
[2022-10-02] MEDS ORDERED: CEFTRIAXONE 1G VIAL IVPB SCH (13:30)
[2022-10-02] MEDS ORDERED: TADA20TA70 PO (13:43)
[2022-10-02] MEDS ORDERED: METO5 PO (13:43)
[2022-10-02] MEDS ORDERED: ESOM40CA PO (13:43)
[2022-10-02 14:09] LABS: INR 0.99 (0.85-1.15); PROTHROMBIN TIME 10.8 SEC (9.6-11.6)
[2022-10-02 14:10] LABS: PARTIAL THROMBOPLASTIN TIME 29.9 SEC (26.3-35.5)
[2022-10-02] MEDS: 0.9%NACL 1000ML 1,000 ML IV SCH ×2 (14:36→23:30)
[2022-10-02] MEDS: HYDRALAZINE 20MG/ML VIAL IV PRN (15:48)
[2022-10-02 16:00] VITALS: BP 158/98
[2022-10-02] MEDS ORDERED: METOPROLOL TARTRATE 1 MG/ML 5ML VIAL IV PRN (16:00)
[2022-10-02 16:13] LABS: AMPHET/METH SCREEN,URINE NEGATIVE (NEGATIVE); BARBITURATE SCREEN, URINE NEGATIVE (NEGATIVE); BENZODIAZEPINES SCREEN,URINE NEGATIVE (NEGATIVE); CANNABINOID SCREEN,URINE POSITIVE (NEGATIVE); COCAINE SCREEN,URINE NEGATIVE (NEGATIVE); OPIATE SCREEN,URINE POSITIVE (NEGATIVE); PHENCYCLIDINE SCREEN,URINE NEGATIVE (NEGATIVE)
[2022-10-02] MEDS: METOCLOPRAMIDE 10 MG/2 ML VIAL IVP SCH (17:21)
[2022-10-02] MEDS ORDERED: MORPHINE 2 MG SYG IVP PRN (18:00)
[2022-10-02] MEDS ORDERED: ACETAMINOPHEN 325 MG TAB PO PRN (18:00)
[2022-10-02] MEDS: ONDANSETRON 4MG INJ IVP PRN (18:47)
[2022-10-02 19:40] VITALS: BP 164/101
[2022-10-02 19:58] VITALS: BP 161/88
[2022-10-02 23:45] VITALS: BP 154/100
[2022-10-03] MEDS: 0.9%NACL 1000ML 1,000 ML IV SCH ×2 (03:52→17:05)
[2022-10-03] MEDS: ONDANSETRON 4MG INJ IVP PRN (04:01)
[2022-10-03 04:14] VITALS: BP 173/106
[2022-10-03] MEDS: HYDRALAZINE 20MG/ML VIAL IV PRN (04:14)
[2022-10-03 05:33] VITALS: BP 115/81
[2022-10-03 06:05] LABS: HEMATOCRIT 49.7 % (42-54); MEAN CORPUSCULAR HEMOGLOBIN 30.8 pg (27.0-33.0); MEAN CORPUSCULAR HGB CONC 33.6 g/dL (32.0-36.0); MEAN CORPUSCULAR VOLUME 91.7 fL (79-99); RED BLOOD CELL COUNT(AUTO) 5.42 MIL/uL (4.50-6.20); RED CELL DISTRIBUTION WIDTH 12.4 % (11.0-15.5); WHITE BLOOD COUNT (AUTO) 13.4 K/uL (4.8-10.8)
[2022-10-03 06:13] LABS: ALBUMIN 3.5 g/dL (3.5-5.0); CREATININE 0.6 mg/dL (0.5-1.5); POTASSIUM 3.4 mmol/L (3.5-5.1); TOTAL PROTEIN, SERUM 7.5 g/dL (6.0-8.3)
[2022-10-03] MEDS: METOCLOPRAMIDE 10 MG/2 ML VIAL IVP SCH ×3 (07:34→17:02)
[2022-10-03 08:00] VITALS: BP 114/78
[2022-10-03] MEDS ORDERED: MAGNESIUM 2GM PREMIX 50ML 50 ML IV PRN (08:00)
[2022-10-03] MEDS ORDERED: 0.9%NACL 50ML IV SCH (08:00)
[2022-10-03] MEDS ORDERED: ZOSYN 3.375GM +NS 50ML IVPB SCH ×2 (08:00→13:00)
[2022-10-03] MEDS ORDERED: POTASSIUM CHLORIDE 20MEQ/100ML 100 ML IV PRN (08:00)
[2022-10-03 08:28] LABS: HEMOGLOBIN A1C 5.3 % (4.0-6.0)
[2022-10-03] MEDS ORDERED: CITALOPRAM 20 MG TABLET PO SCH (09:00)
[2022-10-03] MEDS ORDERED: PANTOPRAZOLE 40 MG/VIAL IVP SCH (09:00)
[2022-10-03] MEDS ORDERED: METOPROLOL SUCCINATE 25 MG TAB.SR.24H PO SCH (09:00)
[2022-10-03] MEDS ORDERED: LOSARTAN 50 MG TABLET PO SCH (09:00)
[2022-10-03] MEDS ORDERED: ENOXAPARIN SODIUM 40 MG/0.4 ML SYRINGE SQ SCH (09:00)
[2022-10-03 12:00] VITALS: BP 119/80
[2022-10-03 16:00] VITALS: BP 125/77
[2022-10-03] MEDS ORDERED: AMOX1TAB16 PO (17:28)
[2022-10-03] MEDS ORDERED: LEVO-70 PO (17:28)
== END 2022-10-03 19:44 | disposition still patient (30) ==
LOC: EDH 10:33 → INTOOBSV 13:06 → EDHIP 13:06 → 3DH 16:00
PROVIDERS: ADMIT Hospitalist; ATTEND Hospitalist
DX: R11.2 Nausea with vomiting, unspecified (principal); K80.20 Calculus of gallbladder without cholecystitis without obstruction; R10.13 Epigastric pain; D72.829 Elevated white blood cell count, unspecified; I10 Essential (primary) hypertension; E78.00 Pure hypercholesterolemia, unspecified; E11.9 Type 2 diabetes mellitus without complications; G47.00 Insomnia, unspecified; K59.00 Constipation, unspecified; E66.01 Morbid (severe) obesity due to excess calories; F12.90 Cannabis use, unspecified, uncomplicated; Z87.11 Personal history of peptic ulcer disease; Z96.653 Presence of artificial knee joint, bilateral; Z98.84 Bariatric surgery status; Z68.42 Body mass index [BMI] 45.0-49.9, adult; Z79.899 Other long term (current) drug therapy; Z98.890 Other specified postprocedural states; Z87.19 Personal history of other diseases of the digestive system
CPT/HCPCS: 96375 ×2; 96376 ×2; 96361 ×2; 96365; 99285; 84484; 80053 ×2; 80305; 83690; 85025; 85610; 85730; 85651; 87040 ×2; 82948 ×5; 86140; 81001; 36415 ×2; 74177; 93005; 84145; 96372; 96366 ×2; 96367; 83036; 83735; 85027; J1200; J3490 ×2; J7030 ×3; J0360 ×2; J0696; J2405 ×3; J2270; J2765 ×5; Q9967; G0378 ×6; J2543 ×2; C9113; J1650

== ENCOUNTER 2022-10-12 06:57 | Emergency (ER) | payer OTHER ==
[~2022-10-12] VITALS: Ht 170.2 cm; Wt 122.9 kg
[~2022-10-12 06:57] MED LIST changes: +AMOX1TAB16 PO; +ESOM40CA PO; -HYDR-4060 PO; -IRON PO; +LEVO-70 PO; +METO5 PO
[2022-10-12] MEDS ORDERED: ONDANSETRON 4MG INJ IVP ONE (07:30)
[2022-10-12] MEDS ORDERED: 0.9%NACL 1000ML 1,000 ML IV ONE (07:30)
[2022-10-12 07:47] LABS: BASOPHILS % (AUTO) 0.5 % (0.0-5.0); EOSINOPHILS % (AUTO) 0.5 % (0.0-8.0); HEMATOCRIT 45.8 % (42-54); LYMPHOCYTES % (AUTO) 21.8 % (21.0-51.0); MEAN CORPUSCULAR HEMOGLOBIN 30.4 pg (27.0-33.0); MEAN CORPUSCULAR HGB CONC 33.4 g/dL (32.0-36.0); MEAN CORPUSCULAR VOLUME 90.9 fL (79-99); MONOCYTES % (AUTO) 5.7 % (3.0-13.0); PLATELET COUNT (AUTO) 267 K/uL (130-400); RED BLOOD CELL COUNT(AUTO) 5.04 MIL/uL (4.50-6.20); RED CELL DISTRIBUTION WIDTH 12.8 % (11.0-15.5); WHITE BLOOD COUNT (AUTO) 13.2 K/uL (4.8-10.8)
[2022-10-12 07:56] LABS: POTASSIUM 3.6 mmol/L (3.5-5.1)
[2022-10-12 08:00] LABS: ALBUMIN 3.5 g/dL (3.5-5.0); TOTAL PROTEIN, SERUM 7.1 g/dL (6.0-8.3)
[2022-10-12] MEDS ORDERED: LORAZEPAM 2 MG/ML 1 ML VIAL IVP ONE (08:00)
[2022-10-12] MEDS ORDERED: PROMETHAZINE HCL 25 MG/ML 1ML AMPULE IM ONE ×2 (08:30→11:00)
[2022-10-12 08:35] LABS: AMPHET/METH SCREEN,URINE NEGATIVE (NEGATIVE); BARBITURATE SCREEN, URINE NEGATIVE (NEGATIVE); BENZODIAZEPINES SCREEN,URINE NEGATIVE (NEGATIVE); CANNABINOID SCREEN,URINE POSITIVE (NEGATIVE); COCAINE SCREEN,URINE NEGATIVE (NEGATIVE); OPIATE SCREEN,URINE NEGATIVE (NEGATIVE); PHENCYCLIDINE SCREEN,URINE NEGATIVE (NEGATIVE)
[2022-10-12] MEDS ORDERED: HYDRALAZINE 20MG/ML VIAL IV ONE (10:00)
[2022-10-12] MEDS ORDERED: ONDA4TAB10 PO (10:24)
[2022-10-12] MEDS ORDERED: PHEN12S PR (10:24)
[2022-10-12] MEDS ORDERED: HYDROMORPHONE 1 MG INJ IVP ONE (12:00)
[2022-10-12 13:00] VITALS: BP 147/72
== END 2022-10-12 13:00 | disposition home or self-care (01) ==
LOC: EDH 06:57
DX: I10 Essential (primary) hypertension (principal); R11.10 Vomiting, unspecified; E11.9 Type 2 diabetes mellitus without complications; E78.00 Pure hypercholesterolemia, unspecified; Z79.899 Other long term (current) drug therapy
CPT/HCPCS: 99285; 96374; 96375; 80053; 80305; 83690; 85025; 82948; 36415; 96372 ×2; 93005; J1170; J7030; J2550 ×2; J0360; J2405; J2060

== ENCOUNTER 2022-10-15 14:07 | Observation (INO) | payer OTHER ==
[~2022-10-15] VITALS: Ht 170.2 cm; Wt 123.4 kg
[~2022-10-15 14:07] MED LIST changes: +ONDA4TAB10 PO; +PHEN12S PR
[2022-10-15] MEDS ORDERED: ONDANSETRON 4MG INJ ONE (14:32)
[2022-10-15] MEDS ORDERED: PROMETHAZINE HCL 25 MG/ML 1ML AMPULE IM ONE (14:32)
[2022-10-15 14:46] LABS: BASOPHILS % (AUTO) 0.6 % (0.0-5.0); EOSINOPHILS % (AUTO) 0.4 % (0.0-8.0); HEMATOCRIT 50.3 % (42-54); LYMPHOCYTES % (AUTO) 27.1 % (21.0-51.0); MEAN CORPUSCULAR HEMOGLOBIN 30.4 pg (27.0-33.0); MEAN CORPUSCULAR HGB CONC 33.6 g/dL (32.0-36.0); MEAN CORPUSCULAR VOLUME 90.5 fL (79-99); MONOCYTES % (AUTO) 6.8 % (3.0-13.0); NEUTROPHILS % (AUTO) 64.3 % (40.0-77.0); PLATELET COUNT (AUTO) 341 K/uL (130-400); RED BLOOD CELL COUNT(AUTO) 5.56 MIL/uL (4.50-6.20); RED CELL DISTRIBUTION WIDTH 12.6 % (11.0-15.5); WHITE BLOOD COUNT (AUTO) 15.2 K/uL (4.8-10.8)
[2022-10-15 14:59] LABS: POTASSIUM 3.2 mmol/L (3.5-5.1)
[2022-10-15] MEDS ORDERED: 0.9%NACL 1000ML 1,000 ML IV SCH (15:00)
[2022-10-15 15:03] LABS: ALBUMIN 3.8 g/dL (3.5-5.0); TOTAL PROTEIN, SERUM 7.8 g/dL (6.0-8.3)
[2022-10-15 15:40] LABS: MAGNESIUM 2.1 mg/dL (1.80-2.40)
[2022-10-15] MEDS ORDERED: LABETALOL 20MG SYG IV ONE (15:44)
[2022-10-15] MEDS ORDERED: LORAZEPAM 2 MG/ML 1 ML VIAL IVP ONE (16:00)
[2022-10-15] MEDS ORDERED: POTASSIUM CHLORIDE 10% ELIXIR 20 MEQ/15 ML UDCUP PO ONE (17:30)
[2022-10-15] MEDS ORDERED: MAGNESIUM 2GM PREMIX 50ML 50 ML IV PRN (20:00)
[2022-10-15] MEDS ORDERED: CEFTRIAXONE 1G VIAL IVPB SCH (20:00)
[2022-10-15] MEDS ORDERED: CEFTRIAXONE 1G VIAL 1 GM in 0.9%NACL 50ML 50 ML IV SCH (20:00)
[2022-10-15 20:31] LABS: HEMOGLOBIN A1C 5.3 % (4.0-6.0)
[2022-10-15] MEDS: 0.9%NACL 1000ML 1,000 ML IV SCH (21:19)
[2022-10-15] MEDS: FAMOTIDINE 20MG VIAL IV SCH (21:19)
[2022-10-15 22:15] VITALS: BP 166/80
[2022-10-16 04:20] VITALS: BP 98/58
[2022-10-16 04:36] LABS: BASOPHILS % (AUTO) 0.8 % (0.0-5.0); EOSINOPHILS % (AUTO) 0.3 % (0.0-8.0); HEMATOCRIT 42.6 % (42-54); LYMPHOCYTES % (AUTO) 27.3 % (21.0-51.0); MEAN CORPUSCULAR HEMOGLOBIN 30.3 pg (27.0-33.0); MEAN CORPUSCULAR HGB CONC 33.1 g/dL (32.0-36.0); MEAN CORPUSCULAR VOLUME 91.4 fL (79-99); MONOCYTES % (AUTO) 8.1 % (3.0-13.0); NEUTROPHILS % (AUTO) 62.7 % (40.0-77.0); PLATELET COUNT (AUTO) 198 K/uL (130-400); RED BLOOD CELL COUNT(AUTO) 4.66 MIL/uL (4.50-6.20); RED CELL DISTRIBUTION WIDTH 12.7 % (11.0-15.5); WHITE BLOOD COUNT (AUTO) 9.2 K/uL (4.8-10.8)
[2022-10-16 04:51] LABS: CREATININE 0.6 mg/dL (0.5-1.5); CRP QUANTITATIVE 3.7 mg/L (0.00-9.0); POTASSIUM 3.3 mmol/L (3.5-5.1); TOTAL PROTEIN, SERUM 6.2 g/dL (6.0-8.3)
[2022-10-16] MEDS: POTASSIUM CHLORIDE 10MEQ/100ML 100 ML IV PRN ×2 (05:09→12:13)
[2022-10-16] MEDS: INSULIN LISPRO 100 UNIT/ML 3ML SQ SCH ×3 (05:40→11:56)
[2022-10-16] MEDS: METOCLOPRAMIDE 10 MG/2 ML VIAL IVP SCH ×3 (06:31→16:48)
[2022-10-16] MEDS: 0.9%NACL 1000ML 1,000 ML IV SCH (06:31)
[2022-10-16 08:00] VITALS: BP 120/67
[2022-10-16] MEDS ORDERED: ENOXAPARIN SODIUM 40 MG/0.4 ML SYRINGE SQ SCH (09:00)
[2022-10-16 09:19] LABS: APPEARANCE,URINE CLEAR (CLEAR); BILIRUBIN,URINE NEGATIVE (NEGATIVE); COLOR,URINE YELLOW (YELLOW); GLUCOSE, URINE (UA) NEGATIVE (NEGATIVE); KETONES,URINE 20 mg/dL (NEGATIVE); LEUKOCYTE ESTERASE ,URINE NEGATIVE Leu/uL (NEGATIVE); NITRATE,URINE NEGATIVE (NEGATIVE); OCCULT BLOOD,URINE NEGATIVE (NEGATIVE); PROTEIN,URINE 10 mg/dL (NEGATIVE); UROBILINOGEN,URINE 0.2 mg/dL (0.2-1.0)
[2022-10-16] MEDS: FAMOTIDINE 20MG VIAL IV SCH (09:27)
[2022-10-16 09:53] LABS: MUCUS,URINE FEW LPF (None Seen); RBC,URINE 0-1 /HPF (0-1); SQUAMOUS EPITHELIAL CELL,UR RARE /HPF (0-2)
[2022-10-16 11:49] VITALS: BP 132/83
[2022-10-16] MEDS ORDERED: CEFTRIAXONE 1G VIAL IVPB ONE (15:00)
[2022-10-16 16:00] VITALS: BP 132/78
== END 2022-10-16 18:35 | disposition home or self-care (01) ==
LOC: EDH 14:07 → EDHIP 19:42 → INTOOBSV 19:42 → 3DH 22:21
PROVIDERS: ADMIT Internal Medicine; ATTEND Internal Medicine
DX: R11.2 Nausea with vomiting, unspecified (principal); Z20.822 Contact with and (suspected) exposure to COVID-19; I10 Essential (primary) hypertension; E87.6 Hypokalemia; E86.0 Dehydration; E66.01 Morbid (severe) obesity due to excess calories; E11.9 Type 2 diabetes mellitus without complications; D72.829 Elevated white blood cell count, unspecified; K59.00 Constipation, unspecified; G47.00 Insomnia, unspecified; E78.00 Pure hypercholesterolemia, unspecified; Z87.11 Personal history of peptic ulcer disease; Z87.891 Personal history of nicotine dependence; Z96.653 Presence of artificial knee joint, bilateral; Z98.84 Bariatric surgery status; Z79.899 Other long term (current) drug therapy; Z98.890 Other specified postprocedural states; Z68.42 Body mass index [BMI] 45.0-49.9, adult
CPT/HCPCS: 96372 ×2; 96361 ×2; 96365; 96375 ×2; 99285; 83036; 83735; 84484; 80053 ×2; 83690; 85025 ×2; 87040 ×2; 87077; 87186; 87804 ×2; 36415 ×2; 87635; 71045; 74176; 93005; 96376; 96366 ×2; 96367; 80305; 82948 ×4; 86140; 81001; 84145; C9803; J3490 ×2; J7030; J2550; J0696 ×2; J2405; J2060; G0378 ×4; J1650; J2765 ×3

== ENCOUNTER 2023-03-21 14:29 | Observation (INO) | payer OTHER ==
[~2023-03-21] VITALS: Ht 170.2 cm; Wt 112.9 kg
[~2023-03-21 14:29] MED LIST changes: -AMOX1TAB16 PO; -LEVO-70 PO; -ONDA-104 PO; -PANT40SU PO
[2023-03-21] MEDS ORDERED: ONDANSETRON 4MG INJ ONE (14:50)
[2023-03-21] MEDS ORDERED: PANTOPRAZOLE 40 MG/VIAL IVP ONE (15:00)
[2023-03-21] MEDS ORDERED: ONDANSETRON 4MG INJ IVP ONE (15:00)
[2023-03-21] MEDS ORDERED: KETOROLAC 15MG/ML VIAL (15MG/ML) IV ONE (15:00)
[2023-03-21 15:28] LABS: BASOPHILS # (AUTO) 0.04 K/uL (0.00-0.20); BASOPHILS % (AUTO) 0.5 % (0.0-5.0); HEMATOCRIT 49.2 % (42-54); IMMATURE GRANULOCYTE ABSOLUTE 0.03 K/uL (0-1); LYMPHOCYTES # (AUTO) 1.3 K/uL (1.0-4.8); LYMPHOCYTES % (AUTO) 15.1 % (21.0-51.0); MEAN CORPUSCULAR HEMOGLOBIN 30.5 pg (27.0-33.0); MEAN CORPUSCULAR HGB CONC 32.9 g/dL (32.0-36.0); MEAN CORPUSCULAR VOLUME 92.5 fL (79-99); MONOCYTES # (AUTO) 0.2 K/uL (0.1-1.0); MONOCYTES % (AUTO) 2.6 % (3.0-13.0); NEUTROPHILS # (AUTO) 6.8 K/uL (1.8-7.7); NEUTROPHILS % (AUTO) 81.4 % (40.0-77.0); PLATELET COUNT (AUTO) 272 K/uL (130-400); RED BLOOD CELL COUNT(AUTO) 5.32 MIL/uL (4.50-6.20); RED CELL DISTRIBUTION WIDTH 12.8 % (11.0-15.5); WHITE BLOOD COUNT (AUTO) 8.4 K/uL (4.8-10.8)
[2023-03-21 15:34] LABS: CREATININE 0.6 mg/dL (0.5-1.5); POTASSIUM 3.7 mmol/L (3.5-5.1)
[2023-03-21 15:44] LABS: ALBUMIN 3.8 g/dL (3.5-5.0); BILIRUBIN,TOTAL 1.1 mg/dL (0.2-1.0); TOTAL PROTEIN, SERUM 7.8 g/dL (6.0-8.3)
[2023-03-21] MEDS ORDERED: PROMETHAZINE HCL 25 MG/ML 1ML AMPULE IM ONE (16:30)
[2023-03-21 16:57] LABS: APPEARANCE,URINE CLEAR (CLEAR); BILIRUBIN,URINE NEGATIVE (NEGATIVE); COLOR,URINE LIGHT-YELLOW (YELLOW); GLUCOSE, URINE (UA) NEGATIVE (NEGATIVE); KETONES,URINE 60 mg/dL (NEGATIVE); LEUKOCYTE ESTERASE ,URINE NEGATIVE Leu/uL (NEGATIVE); NITRATE,URINE NEGATIVE (NEGATIVE); OCCULT BLOOD,URINE NEGATIVE (NEGATIVE); PROTEIN,URINE 10 mg/dL (NEGATIVE); UROBILINOGEN,URINE 0.2 mg/dL (0.2-1.0)
[2023-03-21 17:00] LABS: ADD UA MICROSCOPIC YES
[2023-03-21] MEDS ORDERED: 0.9%NACL 1000ML 1,000 ML IV ONE (17:00)
[2023-03-21 17:03] LABS: BACTERIA,URINE RARE /HPF (None Seen); MUCUS,URINE RARE LPF (None Seen); SQUAMOUS EPITHELIAL CELL,UR RARE /HPF (0-2); WBC,URINE 0-1 /HPF (0-1)
[2023-03-21] MEDS ORDERED: IOHEXOL 350 MG/ML 100ML INFUS..BTL IV ONE (17:10)
[2023-03-21] MEDS ORDERED: FAMOTIDINE 20MG VIAL IV ONE (17:30)
[2023-03-21] MEDS ORDERED: MORPHINE 4 MG SYG ONE (20:50)
[2023-03-21] MEDS ORDERED: MORPHINE 4 MG SYG IVP ONE (21:00)
[2023-03-21] MEDS ORDERED: METOCLOPRAMIDE 10 MG/2 ML VIAL IVP ONE (21:00)
[2023-03-21] MEDS ORDERED: NITROGLYCERIN 1GM OINT 1 INCH/1GM TD ONE (22:30)
[2023-03-21] MEDS ORDERED: METOPROLOL TARTRATE 1 MG/ML 5ML VIAL IV ONE (22:30)
[2023-03-21] MEDS ORDERED: CLONIDINE HCL 0.2 MG TABLET PO SCH (23:00)
[2023-03-21] MEDS ORDERED: HYDRALAZINE 20MG/ML VIAL IV PRN (23:30)
[2023-03-21] MEDS ORDERED: TEMAZEPAM 15 MG CAPSULE PO PRN (23:30)
[2023-03-21] MEDS ORDERED: ONDANSETRON 4MG INJ IVP PRN (23:30)
[2023-03-21] MEDS ORDERED: CLONIDINE HCL 0.1 MG TABLET PO PRN (23:30)
[2023-03-21] MEDS ORDERED: DOCUSATE SODIUM 100 MG CAP PO PRN (23:30)
[2023-03-21] MEDS ORDERED: LABETALOL 20MG SYG IV PRN (23:30)
[2023-03-21] MEDS ORDERED: LACTULOSE 20 GM/30 ML UDCUP PO PRN (23:30)
[2023-03-21] MEDS ORDERED: ACETAMINOPHEN 650 MG SUPPOSITORY RC PRN (23:30)
[2023-03-21] MEDS ORDERED: ACETAMINOPHEN 325 MG TAB PO PRN (23:30)
[2023-03-21 23:58] LABS: AMPHET/METH SCREEN,URINE NEGATIVE (NEGATIVE); BARBITURATE SCREEN, URINE NEGATIVE (NEGATIVE); BENZODIAZEPINES SCREEN,URINE NEGATIVE (NEGATIVE); CANNABINOID SCREEN,URINE POSITIVE (NEGATIVE); COCAINE SCREEN,URINE NEGATIVE (NEGATIVE); OPIATE SCREEN,URINE NEGATIVE (NEGATIVE); PHENCYCLIDINE SCREEN,URINE NEGATIVE (NEGATIVE)
[2023-03-22] VITALS (7 sets, daily range): BP systolic 109–134; BP diastolic 56–83; PULSE 63–125; RESP 18–20; O2SAT 98–100
[2023-03-22] MEDS ORDERED: HALOPERIDOL INJ 5 MG/ML VIAL IM SCH
[2023-03-22] MEDS ORDERED: DICYCLOMINE HCL 20 MG TAB PO SCH
[2023-03-22] MEDS: PANTOPRAZOLE 40 MG/VIAL IVP SCH ×2 (09:00→20:39)
[2023-03-22] MEDS: ENOXAPARIN SODIUM 40 MG/0.4 ML SYRINGE SQ SCH (09:00)
[2023-03-22] MEDS ORDERED: HYDR-4068 PO (14:43)
[2023-03-22] MEDS ORDERED: FERR324T9 PO (14:43)
[2023-03-22] MEDS ORDERED: LACT1TAB14 PO (14:43)
[2023-03-22] MEDS ORDERED: ESCI20TA38 PO (14:43)
[2023-03-22] MEDS ORDERED: CALC-1153 PO (14:43)
[2023-03-22] MEDS ORDERED: HYDR453.3 TP (14:43)
[2023-03-22] MEDS ORDERED: OMEP40CA21 PO (14:43)
[2023-03-22] MEDS ORDERED: PROM12.511 RC (14:43)
[2023-03-22] MEDS ORDERED: LOSA50TA64 PO (14:43)
[2023-03-22] MEDS ORDERED: METO-408 PO (14:43)
[2023-03-22] MEDS ORDERED: ONDA4TAB10 PO (14:43)
[2023-03-22] MEDS ORDERED: SUCR1TAB2 PO (14:43)
[2023-03-22] MEDS ORDERED: FERR-82 PO (14:43)
[2023-03-22] MEDS ORDERED: CLOT15CR23 TP (14:43)
[2023-03-22] MEDS ORDERED: GABA600T10 PO (14:43)
[2023-03-22 14:47] LABS: BASOPHILS # (AUTO) 0.03 K/uL (0.00-0.20); BASOPHILS % (AUTO) 0.3 % (0.0-5.0); HEMATOCRIT 46.8 % (42-54); IMMATURE GRANULOCYTE ABSOLUTE 0.04 K/uL (0-1); LYMPHOCYTES # (AUTO) 2.6 K/uL (1.0-4.8); LYMPHOCYTES % (AUTO) 22.4 % (21.0-51.0); MEAN CORPUSCULAR HEMOGLOBIN 30.5 pg (27.0-33.0); MEAN CORPUSCULAR HGB CONC 32.9 g/dL (32.0-36.0); MEAN CORPUSCULAR VOLUME 92.7 fL (79-99); MONOCYTES # (AUTO) 0.9 K/uL (0.1-1.0); MONOCYTES % (AUTO) 7.7 % (3.0-13.0); NEUTROPHILS # (AUTO) 8.1 K/uL (1.8-7.7); NEUTROPHILS % (AUTO) 69.3 % (40.0-77.0); PLATELET COUNT (AUTO) 310 K/uL (130-400); RED BLOOD CELL COUNT(AUTO) 5.05 MIL/uL (4.50-6.20); RED CELL DISTRIBUTION WIDTH 12.8 % (11.0-15.5); WHITE BLOOD COUNT (AUTO) 11.7 K/uL (4.8-10.8)
[2023-03-22 16:15] LABS: MAGNESIUM 1.8 mg/dL (1.80-2.40); PHOSPHORUS 4.2 mg/dL (2.5-4.9)
[2023-03-22] MEDS: INSULIN HUMULIN R 100 UNIT/ML 3ML SQ SCH ×2 (16:30→21:00)
[2023-03-22] MEDS ORDERED: HYDROCODONE/ACETAMINOPHEN 10/325 MG TAB PO PRN (19:30)
[2023-03-22] MEDS ORDERED: ONDANSETRON ODT 4MG TAB PO PRN (19:30)
[2023-03-22] MEDS: GABAPENTIN 300 MG CAPSULE PO SCH (20:39)
[2023-03-22] MEDS: LACTATED RINGERS 1000ML 1,000 ML IV SCH (20:39)
[2023-03-22] MEDS: CLOTRIMAZOLE 30 GM CREAM.GM. TP SCH (20:40)
[2023-03-23] VITALS: BP 109/59; PULSE 55; RESP 18
[2023-03-23] MEDS: LACTATED RINGERS 1000ML 1,000 ML IV SCH ×2 (03:10→11:49)
[2023-03-23 04:00] VITALS: BP 90/64; PULSE 54; RESP 18
[2023-03-23] MEDS: INSULIN HUMULIN R 100 UNIT/ML 3ML SQ SCH ×3 (05:59→16:30)
[2023-03-23 07:56] VITALS: BP 121/71; PULSE 67; RESP 17
[2023-03-23] MEDS ORDERED: LACTOBACILLUS RHAMNOSUS GG 1 EACH CAP.SPRINK PO SCH (09:00)
[2023-03-23] MEDS ORDERED: FERROUS FUMARATE 324 MG TABLET PO SCH (09:00)
[2023-03-23] MEDS ORDERED: LOSARTAN 50 MG TABLET PO SCH (09:00)
[2023-03-23] MEDS ORDERED: CA 600MG+VIT D 400 UNIT TAB 1 TAB TABLET PO SCH (09:00)
[2023-03-23] MEDS ORDERED: (Escitalopram Oxalate 20 MG) PO SCH (09:00)
[2023-03-23] MEDS ORDERED: NON-FORMULARY MEDICATION 1 EACH (Ferrous Sulfate (Iron) 325 MG) PO SCH (09:00)
[2023-03-23] MEDS ORDERED: METOPROLOL SUCCINATE 25 MG TAB.SR.24H PO SCH (09:00)
[2023-03-23] MEDS ORDERED: NON-FORMULARY MEDICATION 1 EACH (Omeprazole 40 MG) PO SCH (09:00)
[2023-03-23] MEDS: PANTOPRAZOLE 40 MG/VIAL IVP SCH (09:50)
[2023-03-23] MEDS: GABAPENTIN 300 MG CAPSULE PO SCH ×2 (09:51→14:00)
[2023-03-23] MEDS: ENOXAPARIN SODIUM 40 MG/0.4 ML SYRINGE SQ SCH (09:52)
[2023-03-23] MEDS: SUCRALFATE 1 GM TABLET PO SCH ×2 (10:00→11:53)
[2023-03-23 12:00] VITALS: BP 123/63; PULSE 61; RESP 17
[2023-03-23 16:00] VITALS: BP 124/52; PULSE 60; RESP 17
[2023-03-23] MEDS: CLOTRIMAZOLE 30 GM CREAM.GM. TP SCH (16:40)
[2023-03-26] MEDS ORDERED: IOHEXOL-350 75 ML VIAL IV ONE (10:42)
== END 2023-03-23 18:30 | disposition home or self-care (01) ==
LOC: EDH 14:29 → EDHIP 23:03 → 2AH 23:38 → 3DH 03-22 16:20
PROVIDERS: ADMIT Internal Medicine Critical Care Medicine; ATTEND Internal Medicine Critical Care Medicine
DX: I16.0 Hypertensive urgency (principal); I16.1 Hypertensive emergency; G89.29 Other chronic pain; R10.9 Unspecified abdominal pain; E86.0 Dehydration; F12.10 Cannabis abuse, uncomplicated; E11.65 Type 2 diabetes mellitus with hyperglycemia; E78.00 Pure hypercholesterolemia, unspecified; I10 Essential (primary) hypertension; K25.4 Chronic or unspecified gastric ulcer with hemorrhage; G47.33 Obstructive sleep apnea (adult) (pediatric); E66.9 Obesity, unspecified; Z68.38 Body mass index [BMI] 38.0-38.9, adult; Z90.49 Acquired absence of other specified parts of digestive tract; Z79.899 Other long term (current) drug therapy; Z96.653 Presence of artificial knee joint, bilateral; Z98.84 Bariatric surgery status
CPT/HCPCS: 96374; 96372 ×3; 81001; 96361 ×3; 96375; 99285; 84484 ×2; 80053; 80305; 83690; 85025 ×2; 36415 ×2; 74177; 93005 ×2; 96376 ×2; 83735; 84100; 82948 ×7; G0378 ×43; J3490 ×2; J2550; J2405; J2270; C9113 ×4; J2765; J1885; Q9967; J1630; J1650 ×2

== ENCOUNTER → 2023-03-26 | Outpatient (CLI) | payer OTHER ==
[~2023-03-26] MED LIST changes: -BRIM2.5D OP; +CALC-1153 PO; +CLOT15CR23 TP; -ESCI-8 PO; +ESCI20TA38 PO; -ESOM40CA PO; +FERR-82 PO; +FERR324T9 PO; +HYDR-4068 PO; -HYDR30CR77 RC; +HYDR453.3 TP; +IOHEXOL-350 75 ML VIAL IV ONE; -IRON1TAB41 PO; +LACT1TAB14 PO; -METO5 PO; -MULT-1296 PO; +OMEP40CA21 PO; -PHEN12S PR; +PROM12.511 RC; +SUCR1TAB2 PO
== END | disposition home or self-care (01) ==
LOC: RAH 03-20 13:14
PROVIDERS: ATTEND Surgery
DX: K91.1 Postgastric surgery syndromes (principal); K25.0 Acute gastric ulcer with hemorrhage; Z98.84 Bariatric surgery status; Z90.49 Acquired absence of other specified parts of digestive tract
CPT/HCPCS: 74177; Q9967

== ENCOUNTER 2023-04-06 18:09 | Observation (INO) | payer OTHER ==
[~2023-04-06] VITALS: Ht 170.2 cm; Wt 111.9 kg
[~2023-04-06 18:09] MED LIST changes: -IOHEXOL-350 75 ML VIAL IV ONE
[2023-04-06 18:53] LABS: BASOPHILS # (AUTO) 0.06 K/uL (0.00-0.20); BASOPHILS % (AUTO) 0.4 % (0.0-5.0); EOSINOPHILS # (AUTO) 0.02 K/uL (0.00-0.70); EOSINOPHILS % (AUTO) 0.1 % (0.0-8.0); HEMATOCRIT 46.1 % (42-54); IMMATURE GRANULOCYTE ABSOLUTE 0.06 K/uL (0-1); LYMPHOCYTES # (AUTO) 1.7 K/uL (1.0-4.8); LYMPHOCYTES % (AUTO) 11.3 % (21.0-51.0); MEAN CORPUSCULAR HEMOGLOBIN 30.5 pg (27.0-33.0); MEAN CORPUSCULAR HGB CONC 33.6 g/dL (32.0-36.0); MEAN CORPUSCULAR VOLUME 90.7 fL (79-99); MONOCYTES # (AUTO) 0.7 K/uL (0.1-1.0); MONOCYTES % (AUTO) 4.4 % (3.0-13.0); NEUTROPHILS # (AUTO) 12.4 K/uL (1.8-7.7); NEUTROPHILS % (AUTO) 83.4 % (40.0-77.0); PLATELET COUNT (AUTO) 300 K/uL (130-400); RED BLOOD CELL COUNT(AUTO) 5.08 MIL/uL (4.50-6.20); RED CELL DISTRIBUTION WIDTH 12.4 % (11.0-15.5); WHITE BLOOD COUNT (AUTO) 14.8 K/uL (4.8-10.8)
[2023-04-06] MEDS ORDERED: ONDANSETRON 4MG INJ IVP ONE (19:00)
[2023-04-06 19:03] LABS: CREATININE 0.8 mg/dL (0.5-1.5); POTASSIUM 3.3 mmol/L (3.5-5.1)
[2023-04-06 19:08] LABS: ALBUMIN 3.5 g/dL (3.5-5.0); BILIRUBIN,TOTAL 0.9 mg/dL (0.2-1.0); TOTAL PROTEIN, SERUM 7.3 g/dL (6.0-8.3)
[2023-04-06] MEDS ORDERED: 0.9%NACL 1000ML 1,000 ML IV ONE ×2 (20:00→21:30)
[2023-04-06] MEDS ORDERED: HALOPERIDOL INJ 5 MG/ML VIAL IV SCH ×2 (20:00→20:30)
[2023-04-06] MEDS ORDERED: PANTOPRAZOLE 40 MG/VIAL IVP ONE (20:00)
[2023-04-06 21:27] LABS: APPEARANCE,URINE CLEAR (CLEAR); BILIRUBIN,URINE NEGATIVE (NEGATIVE); COLOR,URINE LIGHT-YELLOW (YELLOW); GLUCOSE, URINE (UA) NEGATIVE (NEGATIVE); KETONES,URINE 10 mg/dL (NEGATIVE); LEUKOCYTE ESTERASE ,URINE NEGATIVE Leu/uL (NEGATIVE); NITRATE,URINE NEGATIVE (NEGATIVE); OCCULT BLOOD,URINE NEGATIVE (NEGATIVE); PH,URINE 7.5 (5.0-8.0); PROTEIN,URINE NEGATIVE (NEGATIVE); UROBILINOGEN,URINE 0.2 mg/dL (0.2-1.0)
[2023-04-06 21:28] LABS: ADD UA MICROSCOPIC YES
[2023-04-06 21:29] LABS: BACTERIA,URINE RARE /HPF (None Seen); MUCUS,URINE FEW LPF (None Seen); SQUAMOUS EPITHELIAL CELL,UR RARE /HPF (0-2); WBC,URINE 0-1 /HPF (0-1)
[2023-04-06] MEDS ORDERED: POTASSIUM CHLORIDE 10MEQ/100ML 100 ML IV ONE (21:30)
[2023-04-06] MEDS ORDERED: POTASSIUM CHLORIDE 20MEQ/10ML 10 MEQ in 0.9%NACL 50ML 50 ML IV SCH (21:30)
[2023-04-06 21:35] LABS: AMPHET/METH SCREEN,URINE NEGATIVE (NEGATIVE); BARBITURATE SCREEN, URINE NEGATIVE (NEGATIVE); BENZODIAZEPINES SCREEN,URINE NEGATIVE (NEGATIVE); CANNABINOID SCREEN,URINE POSITIVE (NEGATIVE); COCAINE SCREEN,URINE NEGATIVE (NEGATIVE); OPIATE SCREEN,URINE NEGATIVE (NEGATIVE); PHENCYCLIDINE SCREEN,URINE NEGATIVE (NEGATIVE)
[2023-04-06 21:58] VITALS: PULSE 102; RESP 19; O2SAT 99
[2023-04-06 21:59] VITALS: PULSE 102; RESP 20
[2023-04-06] MEDS ORDERED: DiphenhydrAMINE HCL 50 MG/ML VIAL IV PRN (22:00)
[2023-04-06] MEDS ORDERED: ACETAMINOPHEN 325 MG TAB PO PRN (22:00)
[2023-04-06] MEDS ORDERED: NITROGLYCERIN 0.4 MG SL TAB SL PRN (22:00)
[2023-04-06] MEDS ORDERED: FENTANYL CITRATE PF 50 MCG/1 ML 2ML VIAL IVP ONE (22:00)
[2023-04-06] MEDS ORDERED: ALBUTEROL 0.083% 2.5 MG/3 ML INH IH PRN (22:00)
[2023-04-06] MEDS ORDERED: GUAIFENESIN-DM 200/20 MG 10 ML PO PRN (22:00)
[2023-04-06] MEDS ORDERED: KCL 20 MEQ ERTAB PO ONE (22:00)
[2023-04-06] MEDS ORDERED: LACTULOSE 20 GM/30 ML UDCUP PO PRN (22:00)
[2023-04-06] MEDS: LACTATED RINGERS 1000ML 1,000 ML IV SCH (22:10)
[2023-04-07] VITALS (13 sets, daily range): BP systolic 142–196; BP diastolic 97–119; PULSE 108–126; RESP 17–20; O2SAT 95–99
[2023-04-07] MEDS: HYDRALAZINE 20MG/ML VIAL IV PRN ×3 (00:22→16:56)
[2023-04-07] MEDS: HYDROCODONE/ACETAMINOPHEN 5/325 MG TAB PO PRN ×4 (00:22→18:47)
[2023-04-07] MEDS: ZOLPIDEM TARTRATE 5 MG TAB PO PRN ×2 (01:29→20:54)
[2023-04-07] MEDS: ONDANSETRON 4MG INJ IV PRN ×3 (01:29→18:45)
[2023-04-07] MEDS: MAG/ALUM/SIMETH 30 ML UDCUP PO PRN ×2 (01:29→20:52)
[2023-04-07 04:02] LABS: BASOPHILS # (AUTO) 0.02 K/uL (0.00-0.20); BASOPHILS % (AUTO) 0.1 % (0.0-5.0); EOSINOPHILS # (AUTO) 0.03 K/uL (0.00-0.70); EOSINOPHILS % (AUTO) 0.2 % (0.0-8.0); HEMATOCRIT 50.2 % (42-54); IMMATURE GRANULOCYTE ABSOLUTE 0.08 K/uL (0-1); LYMPHOCYTES # (AUTO) 0.9 K/uL (1.0-4.8); LYMPHOCYTES % (AUTO) 5.3 % (21.0-51.0); MEAN CORPUSCULAR HEMOGLOBIN 30.4 pg (27.0-33.0); MEAN CORPUSCULAR HGB CONC 33.3 g/dL (32.0-36.0); MEAN CORPUSCULAR VOLUME 91.3 fL (79-99); MONOCYTES # (AUTO) 0.4 K/uL (0.1-1.0); MONOCYTES % (AUTO) 2.4 % (3.0-13.0); NEUTROPHILS # (AUTO) 16.2 K/uL (1.8-7.7); NEUTROPHILS % (AUTO) 91.5 % (40.0-77.0); PLATELET COUNT (AUTO) 313 K/uL (130-400); RED CELL DISTRIBUTION WIDTH 12.5 % (11.0-15.5); WHITE BLOOD COUNT (AUTO) 17.7 K/uL (4.8-10.8)
[2023-04-07 04:28] LABS: HEMOGLOBIN A1C 4.8 % (4.0-6.0)
[2023-04-07 04:42] LABS: ALANINE AMINOTRANSFERASE 9 U/L (12-78); ALBUMIN 3.1 g/dL (3.5-5.0); AMMONIA < 10 umol/L (11-32); ASPARTATE AMINOTRANSFERASE 12 U/L (10-37); CARBON DIOXIDE 22 mmol/L (21-32); CHLORIDE 99 mmol/L (101-111); CREATINE KINASE, TOTAL 29 U/L (21-232); CREATININE 0.7 mg/dL (0.5-1.5); GLOMERULAR FILTR. RATE CALC 110 mL/min (>90); GLUCOSE,RANDOM 168 mg/dL (70-105); POTASSIUM 3.4 mmol/L (3.5-5.1); SODIUM SERUM 130 mmol/L (136-145); THYROID STIMULATING HORMONE 0.56 uIU/mL (0.36-3.74); UREA NITROGEN, BLOOD 11 mg/dL (7-18)
[2023-04-07] MEDS ORDERED: INSULIN HUMULIN R 100 UNIT/ML 3ML SQ SCH (06:00)
[2023-04-07] MEDS: AZITHROMYCIN 500MG+NS 250ML 250 ML IVPB SCH (08:44)
[2023-04-07] MEDS: CEFTRIAXONE 2GM VIAL IVPB SCH (08:44)
[2023-04-07] MEDS: HEPARIN 5,000 UNIT VIAL SQ SCH ×2 (08:55→16:46)
[2023-04-07] MEDS: LACTATED RINGERS 1000ML 1,000 ML IV SCH ×2 (08:55→18:40)
[2023-04-07] MEDS ORDERED: FAMOTIDINE 20MG VIAL IV SCH ×2 (09:00)
[2023-04-07] MEDS ORDERED: MORPHINE 20MG/ML SOLN 0.25ML PO PRN (12:30)
[2023-04-07] MEDS ORDERED: MAGNESIUM 2GM PREMIX 50ML 50 ML IV PRN (12:30)
[2023-04-07] MEDS ORDERED: MORPHINE 2 MG SYG IVP PRN (13:00)
[2023-04-07] MEDS: SUCRALFATE 1 GM TABLET PO SCH (16:38)
[2023-04-07] MEDS: GABAPENTIN 300 MG CAPSULE PO SCH ×2 (16:39→20:54)
[2023-04-07] MEDS ORDERED: POTASSIUM CHLORIDE 20MEQ/100ML 100 ML IV PRN (17:30)
[2023-04-07] MEDS ORDERED: KCL 20 MEQ ERTAB PO PRN (17:30)
[2023-04-07] MEDS ORDERED: POTASSIUM CHLORIDE 10% ELIXIR 20 MEQ/15 ML UDCUP PO PRN (17:30)
[2023-04-07] MEDS: PANTOPRAZOLE 40 MG/VIAL IVP SCH (20:52)
[2023-04-08] VITALS (15 sets, daily range): BP systolic 107–137; BP diastolic 73–95; PULSE 60–101; RESP 15–18; O2SAT 96–97
[2023-04-08] MEDS: LACTATED RINGERS 1000ML 1,000 ML IV SCH ×2 (02:37→15:40)
[2023-04-08 03:57] LABS: HEMATOCRIT 44.6 % (42-54); MEAN CORPUSCULAR HEMOGLOBIN 30.6 pg (27.0-33.0); MEAN CORPUSCULAR HGB CONC 33.2 g/dL (32.0-36.0); MEAN CORPUSCULAR VOLUME 92.1 fL (79-99); RED BLOOD CELL COUNT(AUTO) 4.84 MIL/uL (4.50-6.20); RED CELL DISTRIBUTION WIDTH 12.8 % (11.0-15.5); WHITE BLOOD COUNT (AUTO) 12.2 K/uL (4.8-10.8)
[2023-04-08 04:19] LABS: ALBUMIN 2.5 g/dL (3.5-5.0); BILIRUBIN,TOTAL 0.7 mg/dL (0.2-1.0); CREATININE 0.7 mg/dL (0.5-1.5); MAGNESIUM 2.1 mg/dL (1.80-2.40); POTASSIUM 3.7 mmol/L (3.5-5.1); TOTAL PROTEIN, SERUM 5.5 g/dL (6.0-8.3)
[2023-04-08] MEDS ORDERED: METOPROLOL SUCCINATE 25 MG TAB.SR.24H PO ONE (04:56)
[2023-04-08] MEDS: SUCRALFATE 1 GM TABLET PO SCH ×3 (05:38→17:21)
[2023-04-08] MEDS: PANTOPRAZOLE 40 MG/VIAL IVP SCH (08:10)
[2023-04-08] MEDS: CEFTRIAXONE 2GM VIAL IVPB SCH (08:10)
[2023-04-08] MEDS: AZITHROMYCIN 500MG+NS 250ML 250 ML IVPB SCH (08:10)
[2023-04-08] MEDS ORDERED: LACTOBACILLUS ACIDOPHILUS PO SCH (09:00)
[2023-04-08] MEDS ORDERED: METOPROLOL SUCCINATE 25 MG TAB.SR.24H PO SCH (09:00)
[2023-04-08] MEDS ORDERED: LOSARTAN 50 MG TABLET PO SCH (09:00)
[2023-04-08] MEDS ORDERED: FENTANYL CITRATE PF 50 MCG/1 ML 2ML VIAL ONE (10:33)
[2023-04-08] MEDS ORDERED: MIDAZOLAM HCL 1 MG/ML 2ML VIAL ONE (10:33)
[2023-04-08] MEDS: GABAPENTIN 300 MG CAPSULE PO SCH ×2 (13:43→14:00)
== END 2023-04-08 19:42 | disposition home or self-care (01) ==
LOC: EDH 18:09 → EDHIP 21:33 → 3BH 04-07 00:09
PROVIDERS: ADMIT Internal Medicine; ATTEND Internal Medicine
DX: K29.00 Acute gastritis without bleeding (principal); K52.9 Noninfective gastroenteritis and colitis, unspecified; K21.9 Gastro-esophageal reflux disease without esophagitis; K76.0 Fatty (change of) liver, not elsewhere classified; R11.2 Nausea with vomiting, unspecified; D72.829 Elevated white blood cell count, unspecified; E66.01 Morbid (severe) obesity due to excess calories; R73.9 Hyperglycemia, unspecified; F41.8 Other specified anxiety disorders; F17.200 Nicotine dependence, unspecified, uncomplicated; Z68.38 Body mass index [BMI] 38.0-38.9, adult; Z87.11 Personal history of peptic ulcer disease; Z98.84 Bariatric surgery status; Z79.899 Other long term (current) drug therapy; Z90.49 Acquired absence of other specified parts of digestive tract; Z96.653 Presence of artificial knee joint, bilateral
CPT/HCPCS: 96376 ×2; 96361 ×3; 96375 ×2; 99285; 84484; 80053 ×3; 80305; 83690 ×2; 85025 ×2; 81001; 36415 ×3; 71045; 74176; 93005; 94640; 94664; 96372; 96365; 96366 ×2; 96367; 96368; 83036; 84443; 82550; 83735 ×2; 83880; 82140; 87880; 82948; 83605; 84145; 82150; 85027; 88305; 88312; 43239; G0378 ×43; J3010 ×2; J7030 ×2; J1630; J2405 ×4; C9113 ×3; J3480; J3475; J7120 ×2; J3490; J0696 ×2; J0360 ×3; J0456 ×2; J1644 ×2; J1200; J2250; A4620; A4215; A4223; A4657; A7002; A4222; A4216; A4606; 99152; G0500

== ENCOUNTER 2023-05-17 06:03 | Day surgery (SDC) | payer OTHER ==
[~2023-05-17] VITALS: Ht 170.2 cm; Wt 110.7 kg
[~2023-05-17 06:03] MED LIST changes: -CLOT15CR23 TP; -ESCI20TA38 PO; +FAMO40TA7 PO; -FERR-82 PO; -FERR324T9 PO; -GABA600T10 PO; -HYDR-4068 PO; -HYDR453.3 TP; +HYDROCODON; -LACT1TAB14 PO; +METO5TAB2 PO; -ONDA4TAB10 PO; +POLY17PO4 PO; -PROM12.511 RC; +SERT-439 PO
[2023-05-17 07:14] VITALS: BP 122/68; PULSE 58; RESP 14
[2023-05-17] MEDS ORDERED: LIDOCAINE PF 100MG/5ML (2%) SYRINGE 5ML ONE (07:56)
[2023-05-17] MEDS ORDERED: PROPOFOL 10 MG/ML 20ML VIAL IV ONE ×2 (07:56→08:12)
[2023-05-22] MEDS ORDERED: METO5TAB2 PO (01:40)
[2023-05-22] MEDS ORDERED: SUCR1TAB2 PO (01:40)
== END 2023-05-17 09:00 | disposition home or self-care (01) ==
LOC: ENDO 06:03 → DAH 06:03 → ENDO 09:00
PROVIDERS: ATTEND Surgery
DX: K30 Functional dyspepsia (principal); K91.1 Postgastric surgery syndromes; K22.89 Other specified disease of esophagus; K25.0 Acute gastric ulcer with hemorrhage; K28.4 Chronic or unspecified gastrojejunal ulcer with hemorrhage; I10 Essential (primary) hypertension; I25.10 Atherosclerotic heart disease of native coronary artery without angina pectoris; G47.30 Sleep apnea, unspecified; F41.9 Anxiety disorder, unspecified; F32.A Depression, unspecified; M19.90 Unspecified osteoarthritis, unspecified site; E11.9 Type 2 diabetes mellitus without complications; Z98.84 Bariatric surgery status; Z79.899 Other long term (current) drug therapy; Z90.49 Acquired absence of other specified parts of digestive tract; Z80.3 Family history of malignant neoplasm of breast; Z80.51 Family history of malignant neoplasm of kidney; Z98.0 Intestinal bypass and anastomosis status
CPT/HCPCS: 82948; 43239; J2001; J2704 ×2; A4620; A4215 ×2; A4223; A7002; A4222; A4221; A4663; A4216; J7030; A4606; J3490

== ENCOUNTER → 2023-05-25 | Outpatient (CLI) | payer OTHER ==
[~2023-05-25] MED LIST changes: +CLAR-44 PO; +ESOM40CA PO; +GABA300C PO; -HYDROCODON; +LANS15TA5 PO; +METR375C2 PO; +SUCR1TAB PO; +THIA500T3 PO
== END | disposition home or self-care (01) ==
LOC: RAH 08:14
PROVIDERS: ATTEND Surgery
DX: K91.1 Postgastric surgery syndromes (principal); K25.0 Acute gastric ulcer with hemorrhage; Z98.84 Bariatric surgery status; Z93.4 Other artificial openings of gastrointestinal tract status
CPT/HCPCS: 74240

== ENCOUNTER 2023-06-16 06:36 | Observation (INO) | payer OTHER ==
[~2023-06-16] VITALS: Ht 170.2 cm; Wt 114.2 kg
[2023-06-16 07:53] LABS: BASOPHILS # (AUTO) 0.05 K/uL (0.00-0.20); BASOPHILS % (AUTO) 0.5 % (0.0-5.0); EOSINOPHILS # (AUTO) 0.04 K/uL (0.00-0.70); EOSINOPHILS % (AUTO) 0.4 % (0.0-8.0); HEMATOCRIT 44.4 % (42-54); IMMATURE GRANULOCYTE ABSOLUTE 0.02 K/uL (0-1); LYMPHOCYTES # (AUTO) 1.6 K/uL (1.0-4.8); LYMPHOCYTES % (AUTO) 15.6 % (21.0-51.0); MEAN CORPUSCULAR HEMOGLOBIN 30.2 pg (27.0-33.0); MEAN CORPUSCULAR HGB CONC 33.3 g/dL (32.0-36.0); MEAN CORPUSCULAR VOLUME 90.6 fL (79-99); MONOCYTES # (AUTO) 0.6 K/uL (0.1-1.0); MONOCYTES % (AUTO) 5.5 % (3.0-13.0); NEUTROPHILS % (AUTO) 77.8 % (40.0-77.0); PLATELET COUNT (AUTO) 225 K/uL (130-400); WHITE BLOOD COUNT (AUTO) 10.3 K/uL (4.8-10.8)
[2023-06-16 08:08] LABS: SARS-CoV-2, RNA, NAAT NEGATIVE SARS CoV-2 (NEGATIVE)
[2023-06-16 08:13] LABS: ALANINE AMINOTRANSFERASE 15 U/L (12-78); ALBUMIN 3.7 g/dL (3.5-5.0); ASPARTATE AMINOTRANSFERASE 15 U/L (10-37); BILIRUBIN,TOTAL 1.1 mg/dL (0.2-1.0); CARBON DIOXIDE 22 mmol/L (21-32); CHLORIDE 104 mmol/L (101-111); CREATINE KINASE, TOTAL 34 U/L (21-232); CREATININE 0.7 mg/dL (0.5-1.5); GLOMERULAR FILTR. RATE CALC 110 mL/min (>90); GLUCOSE,RANDOM 128 mg/dL (70-105); POTASSIUM 3.3 mmol/L (3.5-5.1); SODIUM SERUM 139 mmol/L (136-145); TOTAL PROTEIN, SERUM 7.3 g/dL (6.0-8.3); UREA NITROGEN, BLOOD 12 mg/dL (7-18)
[2023-06-16 08:16] LABS: INFLUENZA TYPE A Negative For Type A (NEGATIVE); INFLUENZA TYPE B Negative For Type B (NEGATIVE)
[2023-06-16] MEDS ORDERED: PROMETHAZINE HCL 25 MG/ML 1ML AMPULE IM ONE (08:30)
[2023-06-16] MEDS ORDERED: FENTANYL CITRATE PF 50 MCG/1 ML 2ML VIAL IVP ONE (08:30)
[2023-06-16] MEDS ORDERED: 0.9%NACL 1000ML 1,000 ML IV ONE ×2 (08:30→11:30)
[2023-06-16 11:20] LABS: APPEARANCE,URINE CLEAR (CLEAR); BILIRUBIN,URINE NEGATIVE (NEGATIVE); COLOR,URINE LIGHT-YELLOW (YELLOW); GLUCOSE, URINE (UA) NEGATIVE (NEGATIVE); KETONES,URINE 20 mg/dL (NEGATIVE); LEUKOCYTE ESTERASE ,URINE NEGATIVE Leu/uL (NEGATIVE); NITRATE,URINE NEGATIVE (NEGATIVE); OCCULT BLOOD,URINE NEGATIVE (NEGATIVE); PH,URINE 7.5 (5.0-8.0); PROTEIN,URINE NEGATIVE (NEGATIVE); UROBILINOGEN,URINE 0.2 mg/dL (0.2-1.0)
[2023-06-16 11:21] LABS: ADD UA MICROSCOPIC YES
[2023-06-16 11:23] LABS: MUCUS,URINE RARE LPF (None Seen); RBC,URINE 0-1 /HPF (0-1); SQUAMOUS EPITHELIAL CELL,UR RARE /HPF (0-2); WBC,URINE 0-1 /HPF (0-1)
[2023-06-16] MEDS ORDERED: PANTOPRAZOLE 40 MG/VIAL IVP ONE (11:30)
[2023-06-16] MEDS ORDERED: KETOROLAC 30MG VIAL (30MG/ML) IVP ONE (11:30)
[2023-06-16] MEDS ORDERED: DICYCLOMINE 20MG (10MG/ML) AMP IM ONE (11:30)
[2023-06-16] MEDS ORDERED: LACTULOSE 20 GM/30 ML UDCUP PO PRN (15:00)
[2023-06-16] MEDS ORDERED: CLONIDINE HCL 0.1 MG TABLET PO PRN (15:00)
[2023-06-16] MEDS ORDERED: ACETAMINOPHEN 325 MG TAB PO PRN (15:00)
[2023-06-16] MEDS ORDERED: TEMAZEPAM 15 MG CAPSULE PO PRN (15:00)
[2023-06-16] MEDS ORDERED: ONDANSETRON 4MG INJ IVP PRN (15:00)
[2023-06-16] MEDS ORDERED: ACETAMINOPHEN 650 MG SUPPOSITORY RC PRN (15:00)
[2023-06-16 15:10] LABS: AMPHET/METH SCREEN,URINE NEGATIVE (NEGATIVE); BARBITURATE SCREEN, URINE NEGATIVE (NEGATIVE); BENZODIAZEPINES SCREEN,URINE NEGATIVE (NEGATIVE); CANNABINOID SCREEN,URINE POSITIVE (NEGATIVE); COCAINE SCREEN,URINE NEGATIVE (NEGATIVE); OPIATE SCREEN,URINE NEGATIVE (NEGATIVE); PHENCYCLIDINE SCREEN,URINE NEGATIVE (NEGATIVE)
[2023-06-16] MEDS ORDERED: POTASSIUM CHLORIDE 20MEQ/100ML 100 ML IV PRN ×2 (15:30)
[2023-06-16] MEDS ORDERED: MAGNESIUM 2GM PREMIX 50ML 50 ML IV PRN (15:30)
[2023-06-16] MEDS ORDERED: DEXTROSE 50%-WATER 50 ML DISP.SYRIN IV PRN (15:30)
[2023-06-16] MEDS ORDERED: POTASSIUM CHLORIDE 10% ELIXIR 20 MEQ/15 ML UDCUP PO PRN (15:30)
[2023-06-16] MEDS ORDERED: GLUCAGON 1MG KIT 1 MG ML IM PRN (15:30)
[2023-06-16] MEDS ORDERED: DIATR MEGLU/DIATRIZOATE SODIUM 30 ML BOTTLE ONE (15:36)
[2023-06-16] MEDS: 0.9%NACL 1000ML 1,000 ML IV SCH (16:20)
[2023-06-16] MEDS: PANTOPRAZOLE 40 MG/VIAL IVP SCH (21:11)
[2023-06-16] MEDS: KCL 20 MEQ ERTAB PO PRN (21:14)
[2023-06-16 21:30] VITALS: BP 148/104; PULSE 126; RESP 20
[2023-06-16] MEDS ORDERED: PROCHLORPERAZINE 10MG/2ML INJ IV PRN (21:30)
[2023-06-16 21:35] VITALS: O2SAT 98
[2023-06-16 21:44] VITALS: TEMP 99
[2023-06-16] MEDS ORDERED: HYDROMORPHONE 0.5 MG SYG (0.5MG/0.5ML) IVP ONE (22:00)
[2023-06-16] MEDS ORDERED: HYDROXYZINE 25 MG TABLET PO PRN (22:00)
[2023-06-16] MEDS ORDERED: LACTATED RINGERS 1000ML IV ONE (23:00)
[2023-06-16] MEDS ORDERED: HYDRALAZINE 20MG/ML VIAL IV PRN (23:30)
[2023-06-16] MEDS: SUCRALFATE 1 GM TABLET PO SCH (23:40)
[2023-06-17] VITALS: BP 111/72; PULSE 110; RESP 16
[2023-06-17] MEDS: KCL 20 MEQ ERTAB PO PRN (02:46)
[2023-06-17 04:00] VITALS: BP 105/70; PULSE 72; RESP 18
[2023-06-17] MEDS: 0.9%NACL 1000ML 1,000 ML IV SCH (04:20)
[2023-06-17] MEDS: SUCRALFATE 1 GM TABLET PO SCH ×2 (04:22→08:45)
[2023-06-17 04:33] LABS: BASOPHILS # (AUTO) 0.01 K/uL (0.00-0.20); BASOPHILS % (AUTO) 0.1 % (0.0-5.0); HEMATOCRIT 41.4 % (42-54); IMMATURE GRANULOCYTE ABSOLUTE 0.03 K/uL (0-1); LYMPHOCYTES # (AUTO) 2.3 K/uL (1.0-4.8); LYMPHOCYTES % (AUTO) 24.2 % (21.0-51.0); MEAN CORPUSCULAR HEMOGLOBIN 30.3 pg (27.0-33.0); MEAN CORPUSCULAR HGB CONC 33.3 g/dL (32.0-36.0); MONOCYTES # (AUTO) 0.8 K/uL (0.1-1.0); MONOCYTES % (AUTO) 8.3 % (3.0-13.0); NEUTROPHILS # (AUTO) 6.3 K/uL (1.8-7.7); NEUTROPHILS % (AUTO) 67.1 % (40.0-77.0); PLATELET COUNT (AUTO) 207 K/uL (130-400); RED BLOOD CELL COUNT(AUTO) 4.55 MIL/uL (4.50-6.20); RED CELL DISTRIBUTION WIDTH 12.9 % (11.0-15.5); WHITE BLOOD COUNT (AUTO) 9.4 K/uL (4.8-10.8)
[2023-06-17 05:00] LABS: CREATININE 0.7 mg/dL (0.5-1.5); MAGNESIUM 2.3 mg/dL (1.80-2.40); POTASSIUM 3.9 mmol/L (3.5-5.1)
[2023-06-17 08:00] VITALS: BP 111/72; PULSE 67; RESP 18; O2SAT 100
[2023-06-17] MEDS: PANTOPRAZOLE 40 MG/VIAL IVP SCH (08:44)
[2023-06-17] MEDS: METOCLOPRAMIDE 5 MG TABLET PO SCH ×2 (08:45→13:41)
[2023-06-17] MEDS ORDERED: LOSARTAN 50 MG TABLET PO SCH (09:00)
[2023-06-17] MEDS ORDERED: METOPROLOL SUCCINATE 25 MG TAB.SR.24H PO SCH (09:00)
[2023-06-17 12:00] VITALS: BP 102/55; PULSE 64; RESP 18
[2023-06-17 16:00] VITALS: BP 104/63; PULSE 65; RESP 18
== END 2023-06-17 16:40 | disposition home or self-care (01) ==
LOC: EDH 06:36 → EDHIP 14:57 → 3BH 20:58
PROVIDERS: ADMIT Internal Medicine; ATTEND Internal Medicine
DX: E11.65 Type 2 diabetes mellitus with hyperglycemia (principal); Z20.822 Contact with and (suspected) exposure to COVID-19; I10 Essential (primary) hypertension; E87.6 Hypokalemia; R11.2 Nausea with vomiting, unspecified; F12.90 Cannabis use, unspecified, uncomplicated; E66.01 Morbid (severe) obesity due to excess calories; E86.0 Dehydration; F41.9 Anxiety disorder, unspecified; F32.A Depression, unspecified; R10.13 Epigastric pain; M19.90 Unspecified osteoarthritis, unspecified site; Z68.39 Body mass index [BMI] 39.0-39.9, adult; Z87.891 Personal history of nicotine dependence; Z90.49 Acquired absence of other specified parts of digestive tract; Z98.84 Bariatric surgery status; Z79.899 Other long term (current) drug therapy
CPT/HCPCS: 96376 ×2; 96372; 96361; 96365; 96366 ×2; 96375; 99285; 82550; 83735 ×2; 84484; 80053; 80305; 83690; 85025 ×2; 87040 ×2; 87804 ×2; 81001; 36415 ×2; 87635; 74021; 71045; 74176; 93005; 96367; 84100; 80048; 82948 ×3; G0378 ×26; J3475; Q9963; J3010; J0780; J2405; J1885; C9113 ×3; J0500; J1170; J3480

== ENCOUNTER 2023-08-16 08:50 | Emergency (ER) | payer OTHER ==
[~2023-08-16] VITALS: Ht 170.2 cm; Wt 102.1 kg
[~2023-08-16 08:50] MED LIST changes: -CLAR-44 PO; -METO5TAB2 PO; -METR375C2 PO; -OMEP40CA21 PO; -SUCR1TAB2 PO
[2023-08-16] MEDS: ONDANSETRON 4MG INJ ONE ×2 (09:29→09:30)
[2023-08-16 09:32] LABS: BASOPHILS # (AUTO) 0.04 K/uL (0.00-0.20); BASOPHILS % (AUTO) 0.6 % (0.0-5.0); EOSINOPHILS # (AUTO) 0.06 K/uL (0.00-0.70); HEMATOCRIT 43.8 % (42-54); IMMATURE GRANULOCYTE ABSOLUTE 0.02 K/uL (0-1); LYMPHOCYTES # (AUTO) 1.8 K/uL (1.0-4.8); LYMPHOCYTES % (AUTO) 29.1 % (21.0-51.0); MEAN CORPUSCULAR HEMOGLOBIN 31.5 pg (27.0-33.0); MEAN CORPUSCULAR HGB CONC 33.6 g/dL (32.0-36.0); MEAN CORPUSCULAR VOLUME 93.8 fL (79-99); MONOCYTES # (AUTO) 0.4 K/uL (0.1-1.0); MONOCYTES % (AUTO) 6.4 % (3.0-13.0); NEUTROPHILS # (AUTO) 3.9 K/uL (1.8-7.7); NEUTROPHILS % (AUTO) 62.6 % (40.0-77.0); PLATELET COUNT (AUTO) 253 K/uL (130-400); RED BLOOD CELL COUNT(AUTO) 4.67 MIL/uL (4.50-6.20); RED CELL DISTRIBUTION WIDTH 13.1 % (11.0-15.5); WHITE BLOOD COUNT (AUTO) 6.3 K/uL (4.8-10.8)
[2023-08-16] MEDS: DiphenhydrAMINE HCL 50 MG/ML VIAL IV ONE (09:37)
[2023-08-16] MEDS: METOCLOPRAMIDE 10 MG/2 ML VIAL IVP ONE (09:37)
[2023-08-16 09:42] LABS: CREATININE 0.8 mg/dL (0.5-1.5); POTASSIUM 3.4 mmol/L (3.5-5.1)
[2023-08-16 09:46] LABS: ALBUMIN 3.8 g/dL (3.5-5.0); BILIRUBIN,TOTAL 1.4 mg/dL (0.2-1.0); TOTAL PROTEIN, SERUM 7.4 g/dL (6.0-8.3)
[2023-08-16] MEDS: 0.9%NACL 1000ML 1,983 ML IV ONE (10:16)
[2023-08-16] MEDS ORDERED: IOHEXOL 350 MG/ML 100ML INFUS..BTL IV ONE (10:41)
[2023-08-16 10:55] LABS: APPEARANCE,URINE CLEAR (CLEAR); BILIRUBIN,URINE NEGATIVE (NEGATIVE); COLOR,URINE LIGHT-YELLOW (YELLOW); GLUCOSE, URINE (UA) NEGATIVE (NEGATIVE); KETONES,URINE 10 mg/dL (NEGATIVE); LEUKOCYTE ESTERASE ,URINE NEGATIVE Leu/uL (NEGATIVE); NITRATE,URINE NEGATIVE (NEGATIVE); OCCULT BLOOD,URINE NEGATIVE (NEGATIVE); PH,URINE 8.5 (5.0-8.0); PROTEIN,URINE NEGATIVE (NEGATIVE); UROBILINOGEN,URINE 0.2 mg/dL (0.2-1.0)
[2023-08-16 10:56] LABS: ADD UA MICROSCOPIC YES
[2023-08-16 11:02] LABS: AMPHET/METH SCREEN,URINE NEGATIVE (NEGATIVE); BARBITURATE SCREEN, URINE NEGATIVE (NEGATIVE); BENZODIAZEPINES SCREEN,URINE NEGATIVE (NEGATIVE); CANNABINOID SCREEN,URINE POSITIVE (NEGATIVE); COCAINE SCREEN,URINE NEGATIVE (NEGATIVE); OPIATE SCREEN,URINE NEGATIVE (NEGATIVE); PHENCYCLIDINE SCREEN,URINE NEGATIVE (NEGATIVE)
[2023-08-16 11:13] LABS: MUCUS,URINE RARE LPF (None Seen); RBC,URINE 0-1 /HPF (0-1); SQUAMOUS EPITHELIAL CELL,UR RARE /HPF (0-2); WBC,URINE 0-1 /HPF (0-1)
[2023-08-16] MEDS ORDERED: PROM25SU58 RC (12:00)
[2023-08-16] MEDS: CHLORPROMAZINE HCL 25 MG/ML 1ML AMP IM SCH (12:15)
[2023-08-16 12:58] VITALS: BP 151/97; PULSE 78; RESP 22; O2SAT 98
== END 2023-08-16 13:20 | disposition home or self-care (01) ==
LOC: EDH 08:50
DX: K29.70 Gastritis, unspecified, without bleeding (principal); R11.10 Vomiting, unspecified; E11.9 Type 2 diabetes mellitus without complications; I10 Essential (primary) hypertension; F12.188 Cannabis abuse with other cannabis-induced disorder; Z90.49 Acquired absence of other specified parts of digestive tract; Z98.84 Bariatric surgery status
CPT/HCPCS: 99285; 74177; 96374; 96361; 96375 ×2; 80053; 80305; 83690; 85025; 87040 ×2; 83605; 81001; 36415; 96372; J1200; J3230; J2405 ×2; J2765; Q9967

== ENCOUNTER 2023-08-19 12:10 | Inpatient (IN) | payer OTHER ==
[~2023-08-19] VITALS: Ht 170.2 cm; Wt 95.3 kg
[~2023-08-19 12:10] MED LIST changes: +PROM25SU58 RC
[2023-08-19 13:20] LABS: BASOPHILS # (AUTO) 0.03 K/uL (0.00-0.20); BASOPHILS % (AUTO) 0.3 % (0.0-5.0); EOSINOPHILS # (AUTO) 0.01 K/uL (0.00-0.70); EOSINOPHILS % (AUTO) 0.1 % (0.0-8.0); HEMATOCRIT 43.1 % (42-54); IMMATURE GRANULOCYTE ABSOLUTE 0.03 K/uL (0-1); LYMPHOCYTES # (AUTO) 1.7 K/uL (1.0-4.8); LYMPHOCYTES % (AUTO) 18.2 % (21.0-51.0); MEAN CORPUSCULAR HEMOGLOBIN 31.5 pg (27.0-33.0); MEAN CORPUSCULAR VOLUME 89.8 fL (79-99); MONOCYTES # (AUTO) 0.7 K/uL (0.1-1.0); MONOCYTES % (AUTO) 7.3 % (3.0-13.0); NEUTROPHILS # (AUTO) 7.1 K/uL (1.8-7.7); NEUTROPHILS % (AUTO) 73.8 % (40.0-77.0); PLATELET COUNT (AUTO) 260 K/uL (130-400); RED CELL DISTRIBUTION WIDTH 12.7 % (11.0-15.5); WHITE BLOOD COUNT (AUTO) 9.6 K/uL (4.8-10.8)
[2023-08-19 13:32] LABS: CREATININE 0.9 mg/dL (0.5-1.5); POTASSIUM 3.7 mmol/L (3.5-5.1)
[2023-08-19 13:33] LABS: ALBUMIN 3.9 g/dL (3.5-5.0); BILIRUBIN,TOTAL 2.8 mg/dL (0.2-1.0); TOTAL PROTEIN, SERUM 7.6 g/dL (6.0-8.3)
[2023-08-19] MEDS: PROCHLORPERAZINE 10MG/2ML INJ IV ONE (13:40)
[2023-08-19] MEDS: PANTOPRAZOLE 40 MG/VIAL IVP ONE (13:40)
[2023-08-19] MEDS: 0.9%NACL 1000ML 1,000 ML IV ONE ×2 (14:35→15:19)
[2023-08-19] MEDS: FAMOTIDINE 20MG VIAL IV ONE (14:35)
[2023-08-19] MEDS: ONDANSETRON 4MG INJ IVP ONE (15:19)
[2023-08-19] MEDS ORDERED: ACETAMINOPHEN 325 MG TAB PO PRN ×2 (15:30)
[2023-08-19] MEDS ORDERED: ZOLPIDEM TARTRATE 5 MG TAB PO PRN (15:30)
[2023-08-19] MEDS ORDERED: LACTULOSE 20 GM/30 ML UDCUP PO PRN (15:30)
[2023-08-19] MEDS ORDERED: MAG/ALUM/SIMETH 30 ML UDCUP PO PRN (15:30)
[2023-08-19] MEDS ORDERED: NITROGLYCERIN 0.4 MG SL TAB SL PRN (15:30)
[2023-08-19] MEDS ORDERED: GUAIFENESIN-DM 200/20 MG 10 ML PO PRN (15:30)
[2023-08-19 16:03] VITALS: PULSE 82; RESP 20; O2SAT 98
[2023-08-19] MEDS: KETOROLAC 30MG VIAL (30MG/ML) IVP PRN (16:19)
[2023-08-19 17:20] VITALS: BP 164/94; PULSE 86; RESP 18
[2023-08-19] MEDS: ONDANSETRON 4MG INJ IV PRN (17:44)
[2023-08-19] MEDS: HYDRALAZINE 20MG/ML VIAL IV PRN (18:14)
[2023-08-19 19:00] VITALS: BP 121/77; PULSE 83; RESP 24
[2023-08-19] MEDS: IPRATROPIUM/ALBUTEROL SULFATE 3 ML SOLUTION IH SCH (19:00)
[2023-08-19 19:03] VITALS: PULSE 75; RESP 18
[2023-08-19] MEDS ORDERED: KETOROLAC 30MG VIAL (30MG/ML) IVP PRN (19:30)
[2023-08-19] MEDS: MORPHINE 2 MG SYG IVP ONE (19:38)
[2023-08-19] MEDS: FAMOTIDINE 20MG VIAL IV SCH (19:49)
[2023-08-19] MEDS: HEPARIN 5,000 UNIT VIAL SQ SCH (19:52)
[2023-08-19] MEDS ORDERED: PROM12.513 PO (19:59)
[2023-08-19 20:00] VITALS: O2SAT 99
[2023-08-19] MEDS: 0.9%NACL 1000ML 1,000 ML IV SCH (20:17)
[2023-08-19] MEDS ORDERED: HYDROMORPHONE 0.5 MG SYG (0.5MG/0.5ML) IVP PRN (21:30)
[2023-08-19] MEDS: HYDROCODONE/ACETAMINOPHEN 10/325 MG TAB PO PRN (22:01)
[2023-08-19 23:21] VITALS: PULSE 75; RESP 18
[2023-08-20] VITALS (17 sets, daily range): BP systolic 106–134; BP diastolic 49–75; PULSE 54–78; RESP 16–22; O2SAT 97–100
[2023-08-20 06:10] LABS: HEMATOCRIT 37.2 % (42-54); MEAN CORPUSCULAR HEMOGLOBIN 31.5 pg (27.0-33.0); MEAN CORPUSCULAR HGB CONC 34.4 g/dL (32.0-36.0); MEAN CORPUSCULAR VOLUME 91.6 fL (79-99); RED BLOOD CELL COUNT(AUTO) 4.06 MIL/uL (4.50-6.20); RED CELL DISTRIBUTION WIDTH 12.7 % (11.0-15.5); WHITE BLOOD COUNT (AUTO) 6.7 K/uL (4.8-10.8)
[2023-08-20 06:28] LABS: CREATININE 0.8 mg/dL (0.5-1.5); MAGNESIUM 2.1 mg/dL (1.80-2.40); PHOSPHORUS 4.2 mg/dL (2.5-4.9); POTASSIUM 3.1 mmol/L (3.5-5.1)
[2023-08-20] MEDS: ALBUTEROL 0.083% 2.5 MG/3 ML INH IH PRN (07:25)
[2023-08-20] MEDS ORDERED: ENOXAPARIN SODIUM 40 MG/0.4 ML SYRINGE SQ SCH (09:00)
[2023-08-20] MEDS ORDERED: PANTOPRAZOLE 40 MG/VIAL IVP SCH (09:00)
[2023-08-21] VITALS (34 sets, daily range): BP systolic 105–131; BP diastolic 56–79; PULSE 56–98; RESP 15–20; O2SAT 98–100
[2023-08-21] MEDS: DiphenhydrAMINE HCL 50 MG/ML VIAL IV PRN (01:37)
[2023-08-21 06:27] LABS: BASOPHILS # (AUTO) 0.04 K/uL (0.00-0.20); BASOPHILS % (AUTO) 0.8 % (0.0-5.0); EOSINOPHILS # (AUTO) 0.04 K/uL (0.00-0.70); EOSINOPHILS % (AUTO) 0.8 % (0.0-8.0); HEMATOCRIT 35.2 % (42-54); IMMATURE GRANULOCYTE ABSOLUTE 0.01 K/uL (0-1); LYMPHOCYTES # (AUTO) 1.9 K/uL (1.0-4.8); LYMPHOCYTES % (AUTO) 39.1 % (21.0-51.0); MEAN CORPUSCULAR HEMOGLOBIN 31.6 pg (27.0-33.0); MEAN CORPUSCULAR HGB CONC 34.4 g/dL (32.0-36.0); MEAN CORPUSCULAR VOLUME 91.9 fL (79-99); MONOCYTES # (AUTO) 0.4 K/uL (0.1-1.0); MONOCYTES % (AUTO) 7.5 % (3.0-13.0); NEUTROPHILS # (AUTO) 2.5 K/uL (1.8-7.7); NEUTROPHILS % (AUTO) 51.6 % (40.0-77.0); PLATELET COUNT (AUTO) 164 K/uL (130-400); RED BLOOD CELL COUNT(AUTO) 3.83 MIL/uL (4.50-6.20); RED CELL DISTRIBUTION WIDTH 12.6 % (11.0-15.5); WHITE BLOOD COUNT (AUTO) 4.9 K/uL (4.8-10.8)
[2023-08-21 06:34] LABS: ALBUMIN 2.8 g/dL (3.5-5.0); BILIRUBIN,TOTAL 1.8 mg/dL (0.2-1.0); CREATININE 0.5 mg/dL (0.5-1.5); TOTAL PROTEIN, SERUM 5.5 g/dL (6.0-8.3)
[2023-08-21 06:41] LABS: POTASSIUM 2.9 mmol/L (3.5-5.1)
[2023-08-21] MEDS: THIAMINE HCL 100 MG TABLET PO SCH (09:00)
[2023-08-21] MEDS: POTASSIUM CHLORIDE 20MEQ/100ML 100 ML IV PRN (10:55)
[2023-08-21] MEDS ORDERED: POTASSIUM CHLORIDE 10MEQ/100ML 100 ML IV PRN (11:00)
[2023-08-21] MEDS ORDERED: POTASSIUM CHLORIDE 10% ELIXIR 20 MEQ/15 ML UDCUP PO PRN ×2 (11:00)
[2023-08-21] MEDS ORDERED: POTASSIUM CHLORIDE 10MEQ SR TAB PO PRN (11:00)
[2023-08-21] MEDS ORDERED: PROPOFOL 10 MG/ML 20ML VIAL IV ONE (12:17)
[2023-08-21] MEDS ORDERED: GLYCOPYRROLATE 0.2 MG/ML 5 ML VIAL ONE (12:20)
[2023-08-21] MEDS ORDERED: LIDOCAINE PF 100MG/5ML (2%) SYRINGE 5ML ONE (12:21)
[2023-08-21] MEDS: KCL 20 MEQ ERTAB PO PRN (19:23)
[2023-08-21] MEDS: NS-20 MEQ KCL 1000ML 1,000 ML IV SCH (20:35)
[2023-08-22 01:49] VITALS: PULSE 58; RESP 16
[2023-08-22 04:00] VITALS: BP 110/54; PULSE 63; RESP 19
[2023-08-22 05:35] LABS: HEMATOCRIT 37.7 % (42-54); MEAN CORPUSCULAR HEMOGLOBIN 31.6 pg (27.0-33.0); MEAN CORPUSCULAR VOLUME 93.1 fL (79-99); RED BLOOD CELL COUNT(AUTO) 4.05 MIL/uL (4.50-6.20); RED CELL DISTRIBUTION WIDTH 12.5 % (11.0-15.5); WHITE BLOOD COUNT (AUTO) 5.2 K/uL (4.8-10.8)
[2023-08-22 05:50] LABS: CREATININE 0.6 mg/dL (0.5-1.5); MAGNESIUM 1.7 mg/dL (1.80-2.40); PHOSPHORUS 3.3 mg/dL (2.5-4.9); POTASSIUM 3.4 mmol/L (3.5-5.1)
[2023-08-22 07:04] VITALS: PULSE 67; RESP 16
[2023-08-22 07:20] VITALS: BP 129/74; PULSE 64; RESP 19
[2023-08-22 08:00] VITALS: O2SAT 100
[2023-08-22] MEDS ORDERED: IPRATROPIUM/ALBUTEROL SULFATE 3 ML SOLUTION IH PRN (10:30)
[2023-08-22 12:00] VITALS: BP 121/76; PULSE 72; RESP 18
[2023-08-22] MEDS: METOCLOPRAMIDE 5 MG TABLET PO SCH (12:24)
[2023-08-22] MEDS: GLYCERIN ADULT SUPP.RECT RC SCH (13:10)
[2023-08-22] MEDS: DOCUSATE SODIUM 100 MG CAP PO ONE (14:33)
[2023-08-22] MEDS: LACTULOSE 20 GM/30 ML UDCUP PO ONE (14:33)
[2023-08-22] MEDS ORDERED: METO5TAB2 PO (14:34)
== END 2023-08-22 16:30 | disposition home or self-care (01) | DRG 392 ==
LOC: EDH 12:10 → OBSVTOIN 15:03 → EDHIP 15:03 → 3BH 16:33
PROVIDERS: ADMIT Internal Medicine; ATTEND Internal Medicine
PROC: 0DB68ZX Excision of Stomach, Via Natural or Artificial Opening Endoscopic, Diagnostic (ICD-10-PCS; principal; 2023-08-21)
DX: K29.70 Gastritis, unspecified, without bleeding (principal); K46.9 Unspecified abdominal hernia without obstruction or gangrene; E66.01 Morbid (severe) obesity due to excess calories; E86.0 Dehydration; F19.90 Other psychoactive substance use, unspecified, uncomplicated; G89.29 Other chronic pain; F17.200 Nicotine dependence, unspecified, uncomplicated; R73.9 Hyperglycemia, unspecified; F32.A Depression, unspecified; F41.9 Anxiety disorder, unspecified; I10 Essential (primary) hypertension; Z98.84 Bariatric surgery status; Z68.32 Body mass index [BMI] 32.0-32.9, adult
CPT/HCPCS: 36415; 43239; 71045; 74176; 74240; 80048; 80053; 83735; 84100; 84484; 85025; 85027; 93005; 94640; 94664; 96374; 96375; C9113; G0378; J0360; J0780; J1200; J1644; J1885; J2001; J2270; J2405; J2704; J3480; J3490; J7030; A4215; A4222; A4223; A4620; A7002

== ENCOUNTER 2023-08-26 22:43 | Emergency (ER) | payer OTHER ==
[~2023-08-26] VITALS: Ht 170.2 cm; Wt 90.7 kg
[~2023-08-26 22:43] MED LIST changes: -CALC-1153 PO; -ESOM40CA PO; -FAMO40TA7 PO; -LANS15TA5 PO; +METO5TAB2 PO; +PROM12.513 PO; -SUCR1TAB PO; -THIA500T3 PO
[2023-08-26 23:04] LABS: BASOPHILS # (AUTO) 0.05 K/uL (0.00-0.20); BASOPHILS % (AUTO) 0.5 % (0.0-5.0); EOSINOPHILS # (AUTO) 0.02 K/uL (0.00-0.70); EOSINOPHILS % (AUTO) 0.2 % (0.0-8.0); HEMATOCRIT 42.3 % (42-54); IMMATURE GRANULOCYTE ABSOLUTE 0.02 K/uL (0-1); LYMPHOCYTES # (AUTO) 1.9 K/uL (1.0-4.8); MEAN CORPUSCULAR HEMOGLOBIN 31.1 pg (27.0-33.0); MEAN CORPUSCULAR HGB CONC 34.8 g/dL (32.0-36.0); MEAN CORPUSCULAR VOLUME 89.6 fL (79-99); MONOCYTES # (AUTO) 0.7 K/uL (0.1-1.0); MONOCYTES % (AUTO) 6.6 % (3.0-13.0); NEUTROPHILS # (AUTO) 7.4 K/uL (1.8-7.7); NEUTROPHILS % (AUTO) 73.5 % (40.0-77.0); PLATELET COUNT (AUTO) 291 K/uL (130-400); RED BLOOD CELL COUNT(AUTO) 4.72 MIL/uL (4.50-6.20); RED CELL DISTRIBUTION WIDTH 12.5 % (11.0-15.5); WHITE BLOOD COUNT (AUTO) 10.1 K/uL (4.8-10.8)
[2023-08-26 23:07] LABS: RAPID GROUP A STREP negative (NEGATIVE)
[2023-08-26 23:09] LABS: SARS-CoV-2, RNA, NAAT NEGATIVE SARS CoV-2 (NEGATIVE)
[2023-08-26 23:14] LABS: INFLUENZA TYPE A Negative For Type A (NEGATIVE); INFLUENZA TYPE B Negative For Type B (NEGATIVE)
[2023-08-26 23:23] LABS: CARBON DIOXIDE 25 mmol/L (21-32); CHLORIDE 97 mmol/L (101-111); CREATININE 1.1 mg/dL (0.5-1.5); GLOMERULAR FILTR. RATE CALC 79 mL/min (>90); GLUCOSE,RANDOM 102 mg/dL (70-105); POTASSIUM 4.6 mmol/L (3.5-5.1); SODIUM SERUM 134 mmol/L (136-145); UREA NITROGEN, BLOOD 13 mg/dL (7-18)
[2023-08-26 23:30] LABS: ALANINE AMINOTRANSFERASE 13 U/L (12-78); ALBUMIN 3.9 g/dL (3.5-5.0); ASPARTATE AMINOTRANSFERASE 22 U/L (10-37); BILIRUBIN,TOTAL 1.3 mg/dL (0.2-1.0); CREATINE KINASE, TOTAL 90 U/L (21-232); TOTAL PROTEIN, SERUM 7.6 g/dL (6.0-8.3)
[2023-08-27] MEDS: 0.9%NACL 1000ML 1,000 ML IV ONE (00:16)
[2023-08-27] MEDS: HALOPERIDOL INJ 5 MG/ML VIAL IM ONE (00:16)
[2023-08-27] MEDS ORDERED: DICY20TA2 PO (02:25)
[2023-08-27] MEDS ORDERED: OMEP40CA21 PO (02:25)
[2023-08-27 02:30] LABS: APPEARANCE,URINE CLEAR (CLEAR); BILIRUBIN,URINE NEGATIVE (NEGATIVE); COLOR,URINE LIGHT-YELLOW (YELLOW); GLUCOSE, URINE (UA) NEGATIVE (NEGATIVE); KETONES,URINE 20 mg/dL (NEGATIVE); LEUKOCYTE ESTERASE ,URINE NEGATIVE Leu/uL (NEGATIVE); NITRATE,URINE NEGATIVE (NEGATIVE); OCCULT BLOOD,URINE NEGATIVE (NEGATIVE); PH,URINE 7.5 (5.0-8.0); PROTEIN,URINE NEGATIVE (NEGATIVE)
[2023-08-27 02:34] LABS: ADD UA MICROSCOPIC YES
[2023-08-27 02:37] LABS: AMPHET/METH SCREEN,URINE NEGATIVE (NEGATIVE); BARBITURATE SCREEN, URINE NEGATIVE (NEGATIVE); BENZODIAZEPINES SCREEN,URINE NEGATIVE (NEGATIVE); CANNABINOID SCREEN,URINE POSITIVE (NEGATIVE); COCAINE SCREEN,URINE NEGATIVE (NEGATIVE); OPIATE SCREEN,URINE NEGATIVE (NEGATIVE); PHENCYCLIDINE SCREEN,URINE NEGATIVE (NEGATIVE)
[2023-08-27 03:00] LABS: BACTERIA,URINE FEW /HPF (None Seen); MUCUS,URINE RARE LPF (None Seen); SQUAMOUS EPITHELIAL CELL,UR RARE /HPF (0-2)
[2023-08-27 04:03] VITALS: BP 129/72; PULSE 90; RESP 16; O2SAT 100
== END 2023-08-27 04:12 | disposition home or self-care (01) ==
LOC: EDH 22:43
DX: K31.84 Gastroparesis (principal); R11.2 Nausea with vomiting, unspecified; I10 Essential (primary) hypertension; M19.90 Unspecified osteoarthritis, unspecified site; Z79.899 Other long term (current) drug therapy; Z90.49 Acquired absence of other specified parts of digestive tract; Z20.822 Contact with and (suspected) exposure to COVID-19
CPT/HCPCS: 99285; 71045; 87635; 82550; 83735; 84484; 80053; 80305; 83690; 85025; 87040 ×2; 87880; 87804 ×2; 83605 ×2; 81001; 36415 ×2; 93005; 96360; 96361; 96372; J7030; J1630

== ENCOUNTER 2023-11-05 15:09 | Emergency (ER) | payer OTHER ==
[~2023-11-05] VITALS: Ht 170.2 cm; Wt 90.7 kg
[~2023-11-05 15:09] MED LIST changes: +DICY20TA2 PO; +OMEP40CA21 PO
[2023-11-05 15:43] LABS: BASOPHILS # (AUTO) 0.03 K/uL (0.00-0.20); BASOPHILS % (AUTO) 0.2 % (0.0-5.0); EOSINOPHILS # (AUTO) 0.02 K/uL (0.00-0.70); EOSINOPHILS % (AUTO) 0.1 % (0.0-8.0); HEMATOCRIT 48.6 % (42-54); IMMATURE GRANULOCYTE ABSOLUTE 0.05 K/uL (0-1); LYMPHOCYTES # (AUTO) 1.9 K/uL (1.0-4.8); LYMPHOCYTES % (AUTO) 13.8 % (21.0-51.0); MEAN CORPUSCULAR HEMOGLOBIN 30.9 pg (27.0-33.0); MEAN CORPUSCULAR HGB CONC 35.4 g/dL (32.0-36.0); MEAN CORPUSCULAR VOLUME 87.3 fL (79-99); MONOCYTES # (AUTO) 0.9 K/uL (0.1-1.0); MONOCYTES % (AUTO) 6.2 % (3.0-13.0); NEUTROPHILS # (AUTO) 11.1 K/uL (1.8-7.7); NEUTROPHILS % (AUTO) 79.3 % (40.0-77.0); PLATELET COUNT (AUTO) 308 K/uL (130-400); RED BLOOD CELL COUNT(AUTO) 5.57 MIL/uL (4.50-6.20); RED CELL DISTRIBUTION WIDTH 12.3 % (11.0-15.5)
[2023-11-05 16:04] LABS: CREATININE 0.9 mg/dL (0.5-1.3)
[2023-11-05] MEDS: HALOPERIDOL INJ 5 MG/ML VIAL IV STA (16:14)
[2023-11-05] MEDS: ONDANSETRON 4MG INJ IVP ONE (16:14)
[2023-11-05] MEDS: 0.9%NACL 1000ML 1,000 ML IV ONE (16:15)
[2023-11-05 18:09] VITALS: BP 142/86; PULSE 65; RESP 16; O2SAT 99
[2023-11-05 18:27] LABS: AMPHET/METH SCREEN,URINE NEGATIVE (NEGATIVE); BARBITURATE SCREEN, URINE NEGATIVE (NEGATIVE); BENZODIAZEPINES SCREEN,URINE NEGATIVE (NEGATIVE); CANNABINOID SCREEN,URINE POSITIVE (NEGATIVE); COCAINE SCREEN,URINE NEGATIVE (NEGATIVE); OPIATE SCREEN,URINE NEGATIVE (NEGATIVE); PHENCYCLIDINE SCREEN,URINE NEGATIVE (NEGATIVE)
== END 2023-11-05 18:52 | disposition home or self-care (01) ==
LOC: EDH 15:09
DX: F12.90 Cannabis use, unspecified, uncomplicated (principal); I10 Essential (primary) hypertension; Z79.899 Other long term (current) drug therapy; Z98.890 Other specified postprocedural states; Z94.9 Transplanted organ and tissue status, unspecified
CPT/HCPCS: 99284; 96374; 96361; 96375; 80048; 80305; 85025; 36415; 93005; J7030; J1630; J2405

== ENCOUNTER 2025-02-12 07:43 | Day surgery (SDC) | payer OTHER ==
[~2025-02-12] VITALS: Ht 170.2 cm; Wt 111.1 kg
[2025-02-12] VITALS (11 sets, daily range): BP systolic 116–144; BP diastolic 54–87; PULSE 56–75; RESP 15–16; TEMP 97.3–98.2
[~2025-02-12 07:43] MED LIST changes: +CYAN-35 PO; -DICY20TA2 PO; +DOCU100C33 PO; +FERR-82 PO; -GABA300C PO; +HYDR-4068 PO; +METO10TA3 PO; -METO5TAB2 PO; -OMEP40CA21 PO; -POLY17PO4 PO; -PROM12.513 PO; -PROM25SU58 RC; +PROM25TA7 PO; +RISP0.2515 PO; -SERT-439 PO; +SERT-440 PO
--- NOTE | 2025-02-12 10:56 | NUR ---
IV REMOVED SITE ASYMPTOMATIC. PT TAKEN OUT VIA WHEELCHAIR FAMILY DRIVING. INSTRUCTIONS GIVEN TO BOTH PT AND FAMILY MEMBER.
== END 2025-02-12 10:58 | disposition home or self-care (01) ==
LOC: DAH 07:43 → ENDO 07:43
PROVIDERS: ATTEND Surgery
DX: R10.13 Epigastric pain (principal); K22.2 Esophageal obstruction; K91.1 Postgastric surgery syndromes; K22.89 Other specified disease of esophagus; I10 Essential (primary) hypertension; E11.9 Type 2 diabetes mellitus without complications; M19.90 Unspecified osteoarthritis, unspecified site; I25.10 Atherosclerotic heart disease of native coronary artery without angina pectoris; K28.9 Gastrojejunal ulcer, unspecified as acute or chronic, without hemorrhage or perforation; E66.9 Obesity, unspecified; F41.9 Anxiety disorder, unspecified; G47.33 Obstructive sleep apnea (adult) (pediatric); F32.A Depression, unspecified; Z90.49 Acquired absence of other specified parts of digestive tract; Z98.0 Intestinal bypass and anastomosis status; Z98.84 Bariatric surgery status; Z79.84 Long term (current) use of oral hypoglycemic drugs; Z79.899 Other long term (current) drug therapy; Z68.39 Body mass index [BMI] 39.0-39.9, adult
CPT/HCPCS: 43245; 82948 ×2; J2704 ×2; C1726 ×2; A4620; A4215; A4223; A4222; J7030; J3490

== ENCOUNTER 2025-03-03 09:02 | Inpatient (IN) | payer OTHER ==
[~2025-03-03] VITALS: Ht 170.2 cm; Wt 110.6 kg
--- NOTE | 2025-03-03 09:05 | NUR ---
UA CUP PROVIDED
--- NOTE | 2025-03-03 09:10 | EKG ---
[facility] Test Date: 2025-03-03 Test Time: 09:03:19 Pat Name: PAPITO GODDARD Department: ED Room: 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
[2025-03-03 09:45] LABS: IMMATURE GRANULOCYTE ABSOLUTE 0.02 K/uL (0-1); NUCLEATED RED BLOOD CELLS 0.0 % (0.0-0.19); PLATELET COUNT (AUTO) 296 K/uL (130-400); RED BLOOD CELL COUNT(AUTO) 4.67 MIL/uL (4.50-6.20); RED CELL DISTRIBUTION WIDTH 12.0 % (11.0-15.5); WHITE BLOOD COUNT (AUTO) 8.1 K/uL (4.8-10.8)
[2025-03-03 09:53] LABS: CREATININE 1.1 mg/dL (0.5-1.3); GLOMERULAR FILTR. RATE CALC 79.0 mL/min (>90); GLUCOSE,RANDOM 96.0 mg/dL (70-105); SODIUM SERUM 135.0 mmol/L (136-145); UREA NITROGEN, BLOOD 9.0 mg/dL (7-18)
--- NOTE | 2025-03-03 09:56 | ERN ---
General Chief Complaint: Abdominal Pain Stated Complaint: ABD PAIN, NAUSEA Time Seen by MD: 09:05 History of Present Illness Initial Comments This is 54-year-old male who presented to ED with severe abdominal pain. Patient says that he underwent esophageal balloon dilation 3 weeks ago at this facility due to esophageal obstruction. Since the procedure patient is having nausea, vomiting, night sweats, abdominal pain, on and off fevers. He says that the pain is very severe for the past 2 days, rates 9/10. 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 He denies chest pain, palpitations, shortness of breath, diarrhea. Allergies: Coded Allergies: No Known Allergies (Verified Allergy, Unknown, 07/25/18) No Known Drug Allergies (Unverified Allergy, Unknown, 01/21/22) Home Meds Reported Medications Ferrous Sulfate (Iron) 325 Mg (65 Mg Iron) Tablet, 1 TAB PO DAILY for 30 Days, #30 TAB 0 Refills 10/28/24 Cyanocobalamin (Vitamin B-12) (Vitamin B-12) 1,000 Mcg Capsule, 1000 MCG PO DAILY, CAP 10/28/24 Docusate Sodium (Docusate Sodium) 100 Mg Capsule, 100 MG PO BID, CAP 10/28/24 Sertraline HCl (Sertraline HCl) 100 Mg Tablet, 100 MG PO HS, TAB 10/28/24 Metoprolol Succinate (Metoprolol Succinate) 25 Mg Tab.er.24h, 25 MG PO DAILY, TAB 10/28/24 Losartan Potassium (Losartan Potassium) 50 Mg Tablet, 50 MG PO AM, TAB 10/28/24 Hydrocodone/Acetaminophen (Hydrocodon-Acetaminophn 10-325) 10 Mg-325 Mg Tablet, 1 EACH PO QIDP PRN for PAIN, TAB 10/28/24 Promethazine HCl (Promethazine HCl) 25 Mg Tablet, 25 MG PO AD PRN for NAUSEA/VOMITING, TAB 10/28/24 Metoclopramide HCl (Metoclopramide HCl) 10 Mg Tablet, 10 MG PO QID, TAB 10/28/24 Risperidone (Risperidone) 0.25 Mg Tablet, 0.25 MG PO BID, TAB 10/28/24 Past Medical History Past Medical History: Hypertension Medical History Other: ARTHRITIS. Past Surgical History: Cholecystectomy, Bariatric Surgery Surgical History Other: HERNIA , ABD STIMULATOR Family History Family History: Negative Social History Social History: Negative, Lives with family Constitutional: (+) fever Respiratory: (-) cough, (-) orthopnea, (-) short of breath, (-) stridor, (-) wheezing, (-) other documentation Cardiovascular: (-) chest pain, (-) edema, (-) palpitations, (-) syncope, (-) dyspnea on exertion, (-) other documentation Gastrointestinal/Abdominal: (+) nausea, (+) vomiting, (+) abdominal pain Physical Exam General Appearance: (+) mild distress; (-) no apparent distress, (-) apparent distress, (-) moderate distress, (-) severe distress, (-) thin, (-) obese, (-) combative, (-) cachetic, (-) anxious, (-) other documentation Orientation: (+) alert, (+) oriented x 3; (-) disoriented, (-) other documentation Head/Face Trauma: No Respiratory: (+) chest non-tender, (+) lungs clear, (+) well ventilated Heart: (+) regular Gastrointestinal: (+) soft, (+) tender Results Laboratory and Microbiology Lab and Micro Result Laboratory Tests Test 03/03/25 09:35 03/03/25 09:38 Urine Color YELLOW (YELLOW) Urine Appearance CLOUDY (CLEAR) H Urine pH 6.5 (5.0-8.0) Urine Specific [place] 1.027 (1.001-1.031) Urine Protein 30 mg/dL (NEGATIVE) H Urine Glucose (UA) NEGATIVE mg/dL (NEGATIVE) Urine Ketones NEGATIVE mg/dL (NEGATIVE) Urine Occult Blood NEGATIVE (NEGATIVE) Urine Nitrate NEGATIVE (NEGATIVE) Urine Bilirubin NEGATIVE mg/dL (NEGATIVE) Urine Urobilinogen >=8.0 mg/dL (0.2-1.0) H Urine Leukocyte Esterase NEGATIVE Elvia/uL Urine RBC 26-50 /HPF (0-1) H Urine WBC 2-5 /HPF (0-1) H Urine Squamous Epithelial Cells MOD /HPF (0-2) Urine Calcium Oxalate Crystals RARE /LPF (None Seen) Urine Bacteria None /HPF (None Seen) White Blood Count 8.1 K/uL (4.8-10.8) Red Blood Count 4.67 MIL/uL (4.50-6.20) Hemoglobin 14.4 g/dL (14.0-18.0) Hematocrit 41.2 % (42-54) L Mean Corpuscular Volume 88.2 fL (79-99) Mean Corpuscular Hemoglobin 30.8 pg (27.0-33.0) Mean Corpuscular Hemoglobin Concent 35.0 g/dL (32.0-36.0) Red Cell Distribution Width 12.0 % (11.0-15.5) Platelet Count 296 K/uL (130-400) Mean Platelet Volume 8.8 fL (7.5-10.5) Immature Granulocyte % (Auto) 0.2 % (0-1) Neutrophils (%) (Auto) 60.4 % (40.0-77.0) Lymphocytes (%) (Auto) 30.1 % (21.0-51.0) Monocytes (%) (Auto) 6.8 % (3.0-13.0) Eosinophils (%) (Auto) 1.8 % (0.0-8.0) Basophils (%) (Auto) 0.7 % (0.0-5.0) Neutrophils # (Auto) 4.9 K/uL (1.8-7.7) Lymphocytes # (Auto) 2.5 K/uL (1.0-4.8) Monocytes # (Auto) 0.6 K/uL (0.1-1.0) Eosinophils # (Auto) 0.15 K/uL (0.00-0.70) Basophils # (Auto) 0.06 K/uL (0.00-0.20) Absolute Immature Granulocyte (auto 0.02 K/uL (0-1) Nucleated Red Blood Cells 0.0 % (0.0-0.19) Sodium Level 135 mmol/L (136-145) L Potassium Level 3.6 mmol/L (3.5-5.1) Chloride Level 100 mmol/L (101-111) L Carbon Dioxide Level 27 mmol/L (21-32) Blood Urea Nitrogen 9 mg/dL (7-18) Creatinine 1.1 mg/dL (0.5-1.3) Glomerular Filtration Rate Calc 79 mL/min (>90) Random Glucose 96 mg/dL (70-105) Hemoglobin A1c 5.2 % (4.0-6.0) Estimated Average Glucose (eAG) 103 mg/dL (70-126) Lactic Acid Level 1.9 mmol/L (0.8-2.5) Total Calcium 8.9 mg/dL (8.5-10.1) Total Bilirubin 1.2 mg/dL (0.2-1.0) H Aspartate Amino Transf (AST/SGOT) 9 U/L (10-37) L Alanine Aminotransferase (ALT/SGPT) 11 U/L (12-78) L Alkaline Phosphatase 87 U/L (50-136) Total Protein 7.4 g/dL (6.0-8.3) Albumin 3.9 g/dL (3.5-5.0) Lipase 59 U/L (16-77) Procalcitonin < 0.05 ng/mL (0.05-0.5) L Thyroid Stimulating Hormone (TSH) 1.13 uIU/mL (0.36-3.74) # EKG/XRAY/US/CT/MRI EKG Comment : 1970 date: 03/03/2025 time: 9: 03 a.m. SINUS RHYTHM STEMI: NO GA 158 QRSD 91 QT 369 QTcB 428 X-RAY Comment [place] [address] [address] IMAGING REPORT Signed PATIENT: PAPITO GODDARD MR#: [id number] : 1970 SEX: M AGE: 54 LOCATION: [facility] ORDER 2 STATUS: REG ER REPORT#: [id number] SERVICE 9 REASON: abdominal pain post esophageal balloon dilation ORDERING PHYSICIAN: JASMEET RUIZ MD PROCEDURE: CXR1VW - CHEST 1VW EXAM: CR Chest, 1 View. CLINICAL HISTORY: abdominal pain post esophageal balloon dilation COMPARISON: None provided. FINDINGS: LUNGS: The lungs show no infiltrate or other acute finding. PLEURAL SPACES: No evidence of pleural effusion or pneumothorax. MEDIASTINUM: The cardiomediastinal silhouette is within normal limits. BONES: No aggressive appearing osseous lesion seen. IMPRESSION: No acute cardiopulmonary pathology is evident. /[place] DICTATED BY: MICHAEL MOON MD DATE: 03/03/251119 ELECTRONICALLY SIGNED BY: MICHAEL MOON MD DATE: 03/03/251119 CT Scan Comment [facility] [address] [place] [address] IMAGING REPORT Signed PATIENT: PAPITO GODDARD MR#: [id number] : 1970 SEX: M AGE: 54 LOCATION: [facility] ORDER 1038 STATUS: REG ER REPORT#: [id number] SERVICE 1035 REASON: abdominal pain post esophageal dilation ORDERING PHYSICIAN: JASMEET RUIZ MD PROCEDURE: CAP W - CT CHEST/ABD/PELV W/CONRAST EXAM: CT Chest with Intravenous Contrast. CT Abdomen and Pelvis with Intravenous Contrast CLINICAL HISTORY: abdominal pain post esophageal dilation TECHNIQUE: Axial computed tomography images of the chest, abdomen and pelvis with intravenous contrast. CONTRAST: None. COMPARISON: CT ABD/PELVIS dated 10/28/2024 FINDINGS: LUNG BASES: The lung bases appear clear. No pleural effusions are seen. LIVER: Unremarkable. GALLBLADDER AND BILE DUCTS: Gallbladder not visualized, post-cholecystectomy status. No biliary ductal dilatation is evident. PANCREAS: Minimal to mild peripancreatic fat stranding. Suggested amylase/lipase correlation. SPLEEN: Unremarkable. ADRENAL GLANDS: Unremarkable. KIDNEYS, URETERS, AND BLADDER: Kidneys appear within normal limits. There is no hydronephrosis or hydroureter. No urinary calculi are seen. STOMACH AND BOWEL: Esophagus demonstrate appropriate CT appearance. Metallic wires are seen along the cardiac stomach reflecting prior gastric bypass. Otherwise, unremarkable appearance of the stomach and bowel. No evidence of bowel obstruction. No evidence suggesting enteritis or colitis. APPENDIX: No evidence of acute appendicitis on CT examination. PERITONEUM: Trace free fluid within the pelvis. No free air. LYMPH NODES: No lymphadenopathy is evident. REPRODUCTIVE: Unremarkable as visualized. VASCULATURE: No evidence of abdominal aortic aneurysm. BONES: Spine degenerative changes are seen. No aggressive appearing osseous lesion. No acute osseous pathology evident. Presumed bone island within the proximal right femur. A metallic device is seen along the anterior abdominal wall on the left side in the subcutaneous plane. IMPRESSION: 1. Minimal to mild peripancreatic fat stranding, suggesting possible mild pancreatitis. Correlate with amylase and lipase levels. 2. No evidence of bowel obstruction, perforation, or acute appendicitis. 3. Trace free fluid within the pelvis is of unknown clinical significance. /[place] DICTATED BY: AVANI ANDERSON Jr., MD DATE: 03/03/251430 ELECTRONICALLY SIGNED BY: AVANI ANDERSON Jr., MD DATE: 03/03/251430 [facility] MDM: DIFFERENTIAL DIAGNOSIS: Acute pancreatitis/esophageal obstruction This is a 54-year-old male who presented to ED with severe abdominal pain. Patient had esophageal balloon dilation for esophageal obstruction at this [facility] 3 weeks back. Since then patient is having nausea, vomiting, abdominal pain. Patient says that his pain has been increasing for the past 2 days, he came to ED for further evaluation. We ordered CBC, CMP, ECG, chest x-ray, lipase, lactic acid, CT chest/abdomen/pelvis with contrast. Patient was given Dilaudid 1 mg IV once for pain, ondansetron 4 mg IV once for nausea. CT scan shows minimal to mild peripancreatic fat stranding suggesting possible mild pancreatitis, patient will be admitted for further medical management. ED Course Orders Procedure Category Date Status Time 12 Lead Ekg Tracing- EKG 03/03/25 Complete Technical 09:04 Cbc With Differential LAB 03/03/25 Complete 09:20 Comprehensive LAB 03/03/25 Complete Metabolic Panel 09:20 Lactic Acid LAB 03/03/25 Complete 09:20 Lipase LAB 03/03/25 Complete 09:20 Chest 1vw RAD 03/03/25 Resulted 09:20 Hydromorphone 1 Mg PHA 03/03/25 Complete Inj (Dilaudid 1mg Inj 09:30 Urinalysis Profile LAB 03/03/25 Complete 10:07 Ct Chest/Abd/Pelv CT 03/03/25 Resulted W/Conrast 10:35 Ondansetron 4mg Inj PHA 03/03/25 Complete (Zofran 4mg Inj) 12:00 Iohexol (Omnipaque) PHA 03/03/25 Complete 12:25 Current Medications Medications (Trade) Dose Ordered Sig/John Route PRN Reason Start Time Stop Time Status Last Admin Dose Admin Hydromorphone HCl (DiLAUDid 1MG INJ) 1 mg ONCE ONCE IVP 03/03/25 09:30 03/03/25 09:31 DC 03/03/25 11:32 Iohexol (Omnipaque) 35,000 mg STK-MED ONCE IV 03/03/25 12:25 03/03/25 12:25 DC Ondansetron HCl (zoFRAN 4MG INJ) 4 mg ONCE ONCE IVP 03/03/25 12:00 03/03/25 12:01 DC 03/03/25 12:31 Vital Signs Date Time Temp Pulse Resp B/P (MAP) Pulse Ox O2 Delivery O2 Flow Rate FiO2 03/03/25 11:40 98.8 72 18 135/75 100 Room Air* 0 21 03/03/25 09:03 97.3 87 16 163/82 99 Room Air DX & DISP Disposition: Inpatient Departure Impression: Primary Impression: Pancreatitis Condition: Stable Referrals: CARITO GOMEZ MD (PCP) ATTESTATION BY PHYSICIAN I have seen and examined the patient. I reviewed the documentation, medical decision making, and treatment plan as noted by the resident provider above. I agree with the findings and plan of care. SOLEDAD HERRERA DO 54-year-old male with a abdominal pain. Multiple medical comorbidities including frequent esophageal strictures requiring balloon dilation, that is her bypass, gastroparesis with a gastric stimulator. He has been vomiting for a couple of weeks. He has been very severe pain. Received IV Dilaudid and pain control in the ER. Received IV fluids. His labs are relatively unremarkable. The CT scan does show possible pancreatitis but clinically this may be unlikely. We will admit for further evaluation and GI consultation. JASMEET RUIZ MD Mar 03, 2025 09:56 SOLEDAD HERRERA DO Mar 03, 2025 16:54
[2025-03-03 09:57] LABS: ASPARTATE AMINOTRANSFERASE 9.0 U/L (10-37); TOTAL PROTEIN, SERUM 7.4 g/dL (6.0-8.3)
[2025-03-03 10:17] LABS: APPEARANCE,URINE CLOUDY (CLEAR); GLUCOSE, URINE (UA) NEGATIVE (NEGATIVE); LEUKOCYTE ESTERASE ,URINE NEGATIVE Leu/uL (NEGATIVE); NITRATE,URINE NEGATIVE (NEGATIVE); OCCULT BLOOD,URINE NEGATIVE (NEGATIVE)
--- NOTE | 2025-03-03 10:21 | HMCIMG ---
EXAM: CR Chest, 1 View. CLINICAL HISTORY: abdominal pain post esophageal balloon dilation COMPARISON: None provided. FINDINGS: LUNGS: The lungs show no infiltrate or other acute finding. PLEURAL SPACES: No evidence of pleural effusion or pneumothorax. MEDIASTINUM: The cardiomediastinal silhouette is within normal limits. BONES: No aggressive appearing osseous lesion seen. IMPRESSION: No acute cardiopulmonary pathology is evident. /Sean
[2025-03-03 10:24] LABS: ADD UA MICROSCOPIC YES
[2025-03-03 10:33] LABS: CALCIUM OXALATE CRYSTALS,UR RARE /LPF (None Seen); SQUAMOUS EPITHELIAL CELL,UR MOD /HPF (0-2)
--- NOTE | 2025-03-03 11:15 | NUR ---
PT PLACED INTO -.
[2025-03-03] MEDS ORDERED: IOHEXOL 350 MG/ML 100ML INFUS..BTL IV ONE (12:25)
--- NOTE | 2025-03-03 13:31 | HMCIMG ---
EXAM: CT Chest with Intravenous Contrast. CT Abdomen and Pelvis with Intravenous Contrast CLINICAL HISTORY: abdominal pain post esophageal dilation TECHNIQUE: Axial computed tomography images of the chest, abdomen and pelvis with intravenous contrast. CONTRAST: None. COMPARISON: CT ABD/PELVIS dated 10/28/2024 FINDINGS: LUNG BASES: The lung bases appear clear. No pleural effusions are seen. LIVER: Unremarkable. GALLBLADDER AND BILE DUCTS: Gallbladder not visualized, post-cholecystectomy status. No biliary ductal dilatation is evident. PANCREAS: Minimal to mild peripancreatic fat stranding. Suggested amylase/lipase correlation. SPLEEN: Unremarkable. ADRENAL GLANDS: Unremarkable. KIDNEYS, URETERS, AND BLADDER: Kidneys appear within normal limits. There is no hydronephrosis or hydroureter. No urinary calculi are seen. STOMACH AND BOWEL: Esophagus demonstrate appropriate CT appearance. Metallic wires are seen along the cardiac stomach reflecting prior gastric bypass. Otherwise, unremarkable appearance of the stomach and bowel. No evidence of bowel obstruction. No evidence suggesting enteritis or colitis. APPENDIX: No evidence of acute appendicitis on CT examination. PERITONEUM: Trace free fluid within the pelvis. No free air. LYMPH NODES: No lymphadenopathy is evident. REPRODUCTIVE: Unremarkable as visualized. VASCULATURE: No evidence of abdominal aortic aneurysm. BONES: Spine degenerative changes are seen. No aggressive appearing osseous lesion. No acute osseous pathology evident. Presumed bone island within the proximal right femur. A metallic device is seen along the anterior abdominal wall on the left side in the subcutaneous plane. IMPRESSION: 1. Minimal to mild peripancreatic fat stranding, suggesting possible mild pancreatitis. Correlate with amylase and lipase levels. 2. No evidence of bowel obstruction, perforation, or acute appendicitis. 3. Trace free fluid within the pelvis is of unknown clinical significance. /[place]
[2025-03-03] MEDS: 0.9%NACL 1000ML 1,000 ML IV SCH (16:40)
--- NOTE | 2025-03-03 16:54 | NUR ---
DCP: HOME Pt lives alone in his mobile home, it has stairs with rails. Pt on SSD, requires assistance with ADLs, home management and meal prep. Pt has a provider 5hrs a daily to [facility], has olivia zafar, shower chair, needs to re schedule his sleep study test [facility] expwy for rx services. Pt denies dc needs and will return home at dc Addendum: 03/03/25 at 1704 by MAGDALENO NICOLE SS Amended: Links added.
--- NOTE | 2025-03-03 17:06 | HP ---
[facility] HISTORY AND PHYSICAL Date of Service: Mar 03, 2025 Time of Service: 16:59 HISTORY OF PRESENT ILLNESS: This is a 54-year-old male with past medical history of hypertension, hyperlipidemia, history of sleep apnea, coronary artery disease who presented to the hospital secondary to abdominal pain and nausea and vomiting. The patient states he has had a history of esophageal stricture and has needed balloon dilation in the past by Dr. Perez. He also has a history of stenosis involving the anastomotic site of gastric bypass surgery and has had undergone balloon dilation of gastric stenosis of anastomotic region by Dr. Perez be fore. Patient has noted pain in the periumbilical area which has been ongoing for the past three weeks. He has also had associated nausea with vomiting at home. He has been able to tolerate liquids but feels nauseated after eating. Denies any changes in his bowel movement. Denies any melena, hematochezia, hematemesis. Patient states his periumbilical pain has remained persistent for the past three weeks after he had a esophageal dilation performed by Dr. Perez. He noted some black stools after procedure. His stool has been normal colored recently. Denied any hematemesis, chest pain, shortness of breath, cough, dysuria. He has noted fever and chills at home. Labs were notable for white count of 8.1, hemoglobin was 14.4, platelet count was 296 K, sodium was 135, potassium was 3.6, creatinine was 1.[address] a CT chest done which showed minimal to mild varma creatinine fat stranding. Concern for mild pancreatitis. There was no evidence of bowel obstruction, perforation, appendicitis. There was trace fluid noted in the pelvis of unknown origin. REVIEW OF SYSTEMS CONSTITUTIONAL: Denies fevers, chills, or night sweats. No unintentional weight loss reported. NEUROLOGICAL: Denies headache, amaurosis fugax, motor weakness, sensory deficit, vertigo/spinning sensation, gait abnormalities, or tremors. ENT: No hearing loss, otalgia, otorrhea, rhinitis, rhinorrhea, hoarseness, or sore throat. CARDIOVASCULAR: Denies any exertional angina, dyspnea on exertion, orthopnea, paroxysmal nocturnal dyspnea, palpitations, life-threatening arrhythmias, claudication. PULMONARY: Denies any shortness of breath, cough, phlegm/sputum, hemoptysis, pleuritic chest pain. SLEEP: Denies morning headaches, daytime somnolence or napping. Denies difficulty falling asleep, staying asleep, waking from sleep. Denies knowledge of snoring. GASTROINTESTINAL: Positive for abdominal pain, nausea, vomiting. Denied any melena, hematochezia, hematemesis. GENITOURINARY: Denies frequency, urgency, nocturia, hematuria or incontinence (Storage/Irritative symptoms.) Low urinary stream, straining to void, urinary intermittency or hesitancy, splitting of the voiding stream, terminal dribbling. ENDOCRINOLOGIC: Denies polyuria, polydipsia, polyphagia or heat/cold intolerances. HEMATOLOGIC: Denies thrombophilia/previous clots, or coagulopathy/bleeding disorders. ONCOLOGIC: Denies personal history of malignancy. DERMATOLOGIC: Denies rashes or pruritus. PSYCHIATRIC: Denies any suicidal or homicidal ideation. Denies hallucinations. PAST MEDICAL HISTORY: Hypertension, hyperlipidemia, history of sleep apnea, history of coronary artery disease PAST SURGICAL HISTORY: Cholecystectomy, history of diagnostic laparoscopy with EGD, gastric stimulator, history of gastric bypass surgery] PAST SOCIAL HISTORY: Denied any smoking, alcohol use. He does smoke marijuana around once or twice a week FAMILY HISTORY: Denied any pertinent family history Coded Allergies: No Known Allergies (Verified Allergy, Unknown, 07/25/18) No Known Drug Allergies (Unverified Allergy, Unknown, 01/21/22) PHYSICAL EXAM GENERAL APPEARANCE: The patient is awake, alert, and oriented, in no acute cardiopulmonary distress. NEUROLOGICAL: Cranial nerves II-XII grossly intact. Motor is 5/5 in bilateral upper and lower extremities proximal to distal. No sensory deficits. HEENT: Face is symmetric. Pupils are equal and reactive. Extraocular movements are intact. NECK: Supple. No JVD. No thyromegaly. No submental, submandibular, pre- /postauricular, occipital or supraclavicular lymphadenopathy. CHEST: Normal chest expansion. No Telemetry. LUNGS: Absence of any rales, rhonchi or any wheezing. CARDIOVASCULAR: Regular. S1 and S2 normal. No appreciable rubs, murmurs or gallops. ABDOMEN: Soft, nontender, and nondistended. There is no rebound, voluntary guarding, or rigidity. : Deferred. No Hill. EXTREMITIES: Non-edematous and not cyanotic. No clubbing. Good capillary refill. SKIN: No skin breakdown. Vital Sign (Last 24 Hours) 03/03/25 16:06 Temp 97.5 Pulse 57 Resp 18 B/P (MAP) 155/74 Pulse Ox 100 O2 Delivery Room Air* O2 Flow Rate 0 FiO2 21 LABS: Laboratory: Test 03/03/25 09:38 03/03/25 09:35 Range/Units White Blood Count 8.1 4.8-10.8 K/uL Red Blood Count 4.67 4.50-6.20 MIL/uL Hemoglobin 14.4 14.0-18.0 g/dL Hematocrit 41.2 L 42-54 % Mean Corpuscular Volume 88.2 79-99 fL Mean Corpuscular Hemoglobin 30.8 27.0-33.0 pg Mean Corpuscular Hemoglobin Concent 35.0 32.0-36.0 g/dL Red Cell Distribution Width 12.0 11.0-15.5 % Platelet Count 296 130-400 K/uL Mean Platelet Volume 8.8 7.5-10.5 fL Immature Granulocyte % (Auto) 0.2 0-1 % Neutrophils (%) (Auto) 60.4 40.0-77.0 % Lymphocytes (%) (Auto) 30.1 21.0-51.0 % Monocytes (%) (Auto) 6.8 3.0-13.0 % Eosinophils (%) (Auto) 1.8 0.0-8.0 % Basophils (%) (Auto) 0.7 0.0-5.0 % Neutrophils # (Auto) 4.9 1.8-7.7 K/uL Lymphocytes # (Auto) 2.5 1.0-4.8 K/uL Monocytes # (Auto) 0.6 0.1-1.0 K/uL Eosinophils # (Auto) 0.15 0.00-0.70 K/uL Basophils # (Auto) 0.06 0.00-0.20 K/uL Absolute Immature Granulocyte (auto 0.02 0-1 K/uL Nucleated Red Blood Cells 0.0 0.0-0.19 % Sodium Level 135 L 136-145 mmol/L Potassium Level 3.6 3.5-5.1 mmol/L Chloride Level 100 L 101-111 mmol/L Carbon Dioxide Level 27 21-32 mmol/L Blood Urea Nitrogen 9 7-18 mg/dL Creatinine 1.1 0.5-1.3 mg/dL Glomerular Filtration Rate Calc 79 >90 mL/min Random Glucose 96 70-105 mg/dL Hemoglobin A1c 5.2 4.0-6.0 % Estimated Average Glucose (eAG) 103 70-126 mg/dL Lactic Acid Level 1.9 0.8-2.5 mmol/L Total Calcium 8.9 8.5-10.1 mg/dL Total Bilirubin 1.2 H 0.2-1.0 mg/dL Aspartate Amino Transf (AST/SGOT) 9 L 10-37 U/L Alanine Aminotransferase (ALT/SGPT) 11 L 12-78 U/L Alkaline Phosphatase 87 50-136 U/L Total Protein 7.4 6.0-8.3 g/dL Albumin 3.9 3.5-5.0 g/dL Lipase 59 16-77 U/L Procalcitonin < 0.05 L 0.05-0.5 ng/mL Thyroid Stimulating Hormone (TSH) 1.13 # 0.36-3.74 uIU/mL Urine Color YELLOW YELLOW Urine Appearance CLOUDY H CLEAR Urine pH 6.5 5.0-8.0 Urine Specific [place] 1.027 1.001-1.031 Urine Protein 30 H NEGATIVE mg/dL Urine Glucose (UA) NEGATIVE NEGATIVE mg/dL Urine Ketones NEGATIVE NEGATIVE mg/dL Urine Occult Blood NEGATIVE NEGATIVE Urine Nitrate NEGATIVE NEGATIVE Urine Bilirubin NEGATIVE NEGATIVE mg/dL Urine Urobilinogen >=8.0 H 0.2-1.0 mg/dL Urine Leukocyte Esterase NEGATIVE NEGATIVE Elvia/uL Urine RBC 26-50 H 0-1 /HPF Urine WBC 2-5 H 0-1 /HPF Urine Squamous Epithelial Cells MOD 0-2 /HPF Urine Calcium Oxalate Crystals RARE None Seen /LPF Urine Bacteria None None Seen /HPF Current Medications Medications (Trade) Dose Ordered Sig/John Route PRN Reason Start Time Stop Time Status Last Admin Dose Admin Ceftriaxone Sodium (ROCEphine 1G INJ) 1 gm Q24H IVPB 03/03/25 15:30 03/13/25 15:29 03/03/25 16:41 1 GM Famotidine (Pepcid 20mg Vial) 20 mg BID IV 03/03/25 21:00 04/02/25 20:59 Folic Acid (FolVITE 5 MG/ML VIAL) 1 mg DAILY IV 03/04/25 09:00 04/03/25 08:59 Hydralazine HCl (APRESOLine 20MG INJ) 10 mg Q6H PRN IV ADMINISTER FOR SBP > 180 03/03/25 15:30 04/02/25 15:29 Hydromorphone HCl (DiLAUDid 0.5MG INJ) 0.2 mg Q6H PRN IVP SEVERE PAIN (7-10) 03/03/25 15:30 03/08/25 15:29 03/03/25 16:51 0.2 MG Losartan Potassium (CozAAR 50 mg TAB) 50 mg AM PO 03/04/25 09:00 04/03/25 08:59 UNV Metoprolol Succinate (TopROL XL) 25 mg DAILY PO 03/04/25 09:00 04/03/25 08:59 UNV Miscellaneous Medication (Risperidone ) 0.25 mg BID PO 03/03/25 21:00 04/02/25 20:59 UNV Miscellaneous Medication (Sertraline HCl ) 100 mg HS PO 03/03/25 21:00 04/02/25 20:59 UNV Ondansetron HCl (zoFRAN 4MG INJ) 4 mg Q6H PRN IVP NAUSEA/VOMITING 03/03/25 15:30 04/02/25 15:29 03/03/25 16:41 4 MG Sodium Chloride 1,000 ml @ 100 mls/hr Q10H IV 03/03/25 15:30 04/02/25 15:29 03/03/25 16:40 100 MLS/HR Thiamine HCl (Vitamin B-1) 100 mg DAILY IVP 03/04/25 09:00 04/03/25 08:59 DIAGNOSTICS / RADIOLOGY: CT chest abdomen was reviewed ASSESSMENT: Persistent nausea, vomiting POA Dehydration Periumbilical/right lower quadrant abdominal pain History of Esophageal obstruction status post EGD with balloon dilation Persistent nausea post procedure History of stenosis involving the anastomotic site of gastric bypass surgery s/p balloon dilation of gastric stenosis of anastomotic region today by Dr. Perez, 01/15/2025 History of marijuana use, POA Underlying history of obstructive sleep apnea, POA History of CVA five years ago, POA Hypertension, POA Type 2 diabetes mellitus, POA History of anxiety, POA History of depression, POA History of prior gastric bypass surgery in 2021, PLAN: - patient to be admitted to medical-surgical unit with telemetry -in reference to abdominal pain with persistent nausea and vomiting. We will request consultation with GI. Patient has had a history of he has a facial obstruction, gastric stenosis. We will defer to GI regarding patient will need EGD this admission. Check hemoglobin A1c -patient to be started on NS for gentle hydration -obtain blood cultures. Obtain a UA. Start patient on Rocephin -obtain patient's home medications which will be reconciled once available -further orders per hospitalization course. Advanced Care Planning Which of the following were discussed: Hospice care: Yes __ No _x Therapeutic options: Yes __ No __ Advance directives: Yes __ No __ Other discussions: Discussed with who?: patient (Patient, family or surrogates) Voluntary nature of this service was explained to the patient? Yes _x_ No __ Amount of time spent: 25 minutes ROSALIO Paul MD, MD Mar 03, 2025 17:06
--- NOTE | 2025-03-03 19:51 | NUR ---
PATIENT WITH COMPLAINTS OF ABDOMINAL PAIN. STATES PAIN LEVEL OF 9, UNRELIEVED BY DILAUDID GIVEN EARLIER. 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 PROVIDER ORDERS DILAUDID 0.2MG IV X1.
[2025-03-03] MEDS: FAMOTIDINE 20MG VIAL IV SCH (23:06)
[2025-03-03 23:09] LABS: AMPHET/METH SCREEN,URINE NEGATIVE (NEGATIVE); BARBITURATE SCREEN, URINE NEGATIVE (NEGATIVE); CANNABINOID SCREEN,URINE POSITIVE (NEGATIVE); COCAINE SCREEN,URINE NEGATIVE (NEGATIVE)
--- NOTE | 2025-03-04 03:23 | NUR ---
patient with complaint of abdominal pain. states pain level of 8. Paged harjinder lucas logistics coordinator. ordered dilaudid 0.2mg iv x1.
[2025-03-04 07:47] LABS: IMMATURE GRANULOCYTE ABSOLUTE 0.02 K/uL (0-1); NUCLEATED RED BLOOD CELLS 0.0 % (0.0-0.19); PLATELET COUNT (AUTO) 227 K/uL (130-400); RED BLOOD CELL COUNT(AUTO) 4.51 MIL/uL (4.50-6.20); RED CELL DISTRIBUTION WIDTH 12.1 % (11.0-15.5); WHITE BLOOD COUNT (AUTO) 6.7 K/uL (4.8-10.8)
[2025-03-04 07:55] LABS: CREATININE 0.7 mg/dL (0.5-1.3); GLOMERULAR FILTR. RATE CALC 108.0 mL/min (>90); GLUCOSE,RANDOM 84.0 mg/dL (70-105); SODIUM SERUM 135.0 mmol/L (136-145); UREA NITROGEN, BLOOD 12.0 mg/dL (7-18)
[2025-03-04] MEDS: THIAMINE HCL 100 MG/ML 2ML VIAL IVP SCH (08:24)
--- NOTE | 2025-03-04 10:56 | PN ---
[facility] PROGRESS NOTE Date of Service: Mar 04, 2025 Time of Service: 10:34 SUBJECTIVE: This is a 54-year-old male with past medical history of hypertension, hyperlipidemia, history of sleep apnea, coronary artery disease who presented to the hospital secondary to abdominal pain and nausea and vomiting. The patient states he has had a history of esophageal stricture and has needed balloon dilation in the past by Dr. Perez. He also has a history of stenosis involving the anastomotic site of gastric bypass surgery and has had undergone balloon dilation of gastric stenosis of anastomotic region by Dr. Perez before. Patient has noted pain in the periumbilical area which has been ongoing for the past three weeks. He has also had associated nausea with vomiting at home. He has been able to tolerate liquids but feels nauseated after eating. Denies any changes in his bowel movement. Denies any melena, hematochezia, hematemesis. Patient states his periumbilical pain has remained persistent for the past three weeks after he had a esophageal dilation performed by Dr. Perez. He noted some black stools after procedure. His stool has been normal colored recently. Denied any hematemesis, chest pain, shortness of breath, cough, dysuria. He has noted fever and chills at home. Labs were notable for white count of 8.1, hemoglobin was 14.4, platelet count was 296 K, sodium was 135, potassium was 3.6, creatinine was 1.[address] a [address] chest done which showed minimal to mild varma creatinine fat stranding. Co ncern for mild pancreatitis. There was no evidence of bowel obstruction, perforation, appendicitis. There was trace fluid noted in the pelvis of unknown origin. Patient to be admitted to medical-surgical unit with telemetry. 03/04/25 Patient was evaluated at the bedside ED in 05. He complains of generalized abdominal pain associated with nausea and vomiting. He denies fever, chills, recent illness, shortness of breath or chest pain. He states that his current medications are not adequately controlling his discomfort and is requesting an increase the adjusted doses. He has a history of gastric bypass surgery 4 years ago and notes that he has experienced recurrence of similar symptoms since then. No additional complaints at this time. REVIEW OF SYSTEMS CONSTITUTIONAL: Denies fevers, chills, or night sweats. No unintentional weight loss reported. NEUROLOGICAL: Denies headache, motor weakness, sensory deficit. CARDIOVASCULAR: Denies any exertional angina, dyspnea on exertion, orthopnea. PULMONARY: Denies any shortness of breath, cough, phlegm/sputum, hemoptysis, pleuritic chest pain. GASTROINTESTINAL: Positive for abdominal pain, nausea, vomiting. Denied any melena, hematochezia, hematemesis. GENITOURINARY: Denies frequency, urgency, nocturia. PHYSICAL EXAM GENERAL APPEARANCE: The patient is awake, alert, and oriented, in no acute cardiopulmonary distress. NEUROLOGICAL: Motor and sensory intact. CHEST: Normal chest expansion. LUNGS: Absence of any rales, rhonchi or any wheezing. CARDIOVASCULAR: Regular. S1 and S2 normal. No appreciable rubs, murmurs. ABDOMEN: Abdomen is soft and has generalized tenderness. There is no rebound, voluntary guarding, or rigidity. EXTREMITIES: Non-edematous and not cyanotic. Vital Signs (last 8hr) Date Time Temp Pulse Resp B/P (MAP) Pulse Ox O2 Delivery O2 Flow Rate FiO2 03/04/25 03:36 98.2 52 12 131/77 100 Room Air* 0 21 LABS: Laboratory: Test 03/04/25 07:36 03/03/25 09:38 03/03/25 09:35 Range/Units White Blood Count 6.7 4.8-10.8 K/uL Red Blood Count 4.51 4.50-6.20 MIL/uL Hemoglobin 14.1 14.0-18.0 g/dL Hematocrit 41.8 L 42-54 % Mean Corpuscular Volume 92.7 79-99 fL Mean Corpuscular Hemoglobin 31.3 27.0-33.0 pg Mean Corpuscular Hemoglobin Concent 33.7 32.0-36.0 g/dL Red Cell Distribution Width 12.1 11.0-15.5 % Platelet Count 227 130-400 K/uL Mean Platelet Volume 8.8 7.5-10.5 fL Immature Granulocyte % (Auto) 0.3 0-1 % Neutrophils (%) (Auto) 58.6 40.0-77.0 % Lymphocytes (%) (Auto) 29.7 21.0-51.0 % Monocytes (%) (Auto) 7.5 3.0-13.0 % Eosinophils (%) (Auto) 2.7 0.0-8.0 % Basophils (%) (Auto) 1.2 0.0-5.0 % Neutrophils # (Auto) 3.9 1.8-7.7 K/uL Lymphocytes # (Auto) 2.0 1.0-4.8 K/uL Monocytes # (Auto) 0.5 0.1-1.0 K/uL Eosinophils # (Auto) 0.18 0.00-0.70 K/uL Basophils # (Auto) 0.08 0.00-0.20 K/uL Absolute Immature Granulocyte (auto 0.02 0-1 K/uL Nucleated Red Blood Cells 0.0 0.0-0.19 % Sodium Level 135 L 136-145 mmol/L Potassium Level 4.3 3.5-5.1 mmol/L Chloride Level 103 101-111 mmol/L Carbon Dioxide Level 27 21-32 mmol/L Blood Urea Nitrogen 12 7-18 mg/dL Creatinine 0.7 0.5-1.3 mg/dL Glomerular Filtration Rate Calc 108 >90 mL/min Random Glucose 84 70-105 mg/dL Total Calcium 8.3 L 8.5-10.1 mg/dL Hemoglobin A1c 5.2 4.0-6.0 % Estimated Average Glucose (eAG) 103 70-126 mg/dL Lactic Acid Level 1.9 0.8-2.5 mmol/L Total Bilirubin 1.2 H 0.2-1.0 mg/dL Aspartate Amino Transf (AST/SGOT) 9 L 10-37 U/L Alanine Aminotransferase (ALT/SGPT) 11 L 12-78 U/L Alkaline Phosphatase 87 50-136 U/L Total Protein 7.4 6.0-8.3 g/dL Albumin 3.9 3.5-5.0 g/dL Lipase 59 16-77 U/L Procalcitonin < 0.05 L 0.05-0.5 ng/mL Thyroid Stimulating Hormone (TSH) 1.13 # 0.36-3.74 uIU/mL Urine Color YELLOW YELLOW Urine Appearance CLOUDY H CLEAR Urine pH 6.5 5.0-8.0 Urine Specific [place] 1.027 1.001-1.031 Urine Protein 30 H NEGATIVE mg/dL Urine Glucose (UA) NEGATIVE NEGATIVE mg/dL Urine Ketones NEGATIVE NEGATIVE mg/dL Urine Occult Blood NEGATIVE NEGATIVE Urine Nitrate NEGATIVE NEGATIVE Urine Bilirubin NEGATIVE NEGATIVE mg/dL Urine Urobilinogen >=8.0 H 0.2-1.0 mg/dL Urine Leukocyte Esterase NEGATIVE NEGATIVE Elvia/uL Urine RBC 26-50 H 0-1 /HPF Urine WBC 2-5 H 0-1 /HPF Urine Squamous Epithelial Cells MOD 0-2 /HPF Urine Calcium Oxalate Crystals RARE None Seen /LPF Urine Bacteria None None Seen /HPF Urine Opiates Screen NEGATIVE NEGATIVE Urine Barbiturates Screen NEGATIVE NEGATIVE Urine Phencyclidine Screen NEGATIVE NEGATIVE Urine Amphetamines Screen NEGATIVE NEGATIVE Urine Benzodiazepines Screen NEGATIVE NEGATIVE Urine Cocaine Screen NEGATIVE NEGATIVE Urine Marijuana (THC) Screen POSITIVE H NEGATIVE Current Medications Medications (Trade) Dose Ordered Sig/John Route PRN Reason Start Time Stop Time Status Last Admin Dose Admin Ceftriaxone Sodium (ROCEphine 1G INJ) 1 gm Q24H IVPB 03/03/25 15:30 03/13/25 15:29 03/03/25 16:41 1 GM Famotidine (Pepcid 20mg Vial) 20 mg BID IV 03/03/25 21:00 04/02/25 20:59 03/04/25 08:23 20 MG Folic Acid (FolVITE 5 MG/ML VIAL) 1 mg DAILY IV 03/04/25 09:00 04/03/25 08:59 03/04/25 08:40 1 MG Hydralazine HCl (APRESOLine 20MG INJ) 10 mg Q6H PRN IV ADMINISTER FOR SBP > 180 03/03/25 15:30 04/02/25 15:29 Hydromorphone HCl (DiLAUDid 0.5MG INJ) 0.2 mg Q6H PRN IVP SEVERE PAIN (7-10) 03/03/25 15:30 03/08/25 15:29 03/04/25 08:24 0.2 MG Losartan Potassium (CozAAR 50 mg TAB) 50 mg AM PO 03/04/25 09:00 04/03/25 08:59 03/04/25 08:23 50 MG Metoprolol Succinate (TopROL XL) 25 mg DAILY PO 03/04/25 09:00 04/03/25 08:59 03/04/25 08:23 25 MG Ondansetron HCl (zoFRAN 4MG INJ) 4 mg Q6H PRN IVP NAUSEA/VOMITING 03/03/25 15:30 04/02/25 15:29 03/04/25 08:23 4 MG Risperidone (RisperDAL) 0.25 mg BID PO 03/03/25 21:00 04/02/25 20:59 Sertraline HCl (ZOloft 50 mg tab) 100 mg HS PO 03/03/25 21:00 04/02/25 20:59 Sodium Chloride 1,000 ml @ 100 mls/hr Q10H IV 03/03/25 15:30 04/02/25 15:29 03/04/25 06:49 100 MLS/HR Thiamine HCl (Vitamin B-1) 100 mg DAILY IVP 03/04/25 09:00 04/03/25 08:59 03/04/25 08:24 100 MG DIAGNOSTICS / RADIOLOGY: [place] [id number] [id number] IMAGING REPORT Signed PATIENT: PAPITO GODDARD MR#: [id number] : 1970 SEX: M AGE: 54 LOCATION: [facility] ORDER [id number] STATUS: REG ER REPORT#: [id number] SERVICE [id number] REASON: abdominal pain post esophageal dilation ORDERING PHYSICIAN: JASMEET RUIZ MD PROCEDURE: CAP W - CT CHEST/ABD/PELV W/CONRAST EXAM: CT Chest with Intravenous Contrast. CT Abdomen and Pelvis with Intravenous Contrast CLINICAL HISTORY: abdominal pain post esophageal dilation TECHNIQUE: Axial computed tomography images of the chest, abdomen and pelvis with intravenous contrast. CONTRAST: None. COMPARISON: CT ABD/PELVIS dated 10/28/2024 FINDINGS: LUNG BASES: The lung bases appear clear. No pleural effusions are seen. LIVER: Unremarkable. GALLBLADDER AND BILE DUCTS: Gallbladder not visualized, post-cholecystectomy status. No biliary ductal dilatation is evident. PANCREAS: Minimal to mild peripancreatic fat stranding. Suggested amylase/lipase correlation. SPLEEN: Unremarkable. ADRENAL GLANDS: Unremarkable. KIDNEYS, URETERS, AND BLADDER: Kidneys appear within normal limits. There is no hydronephrosis or hydroureter. No urinary calculi are seen. STOMACH AND BOWEL: Esophagus demonstrate appropriate CT appearance. Metallic wires are seen along the cardiac stomach reflecting prior gastric bypass. Otherwise, unremarkable appearance of the stomach and bowel. No evidence of bowel obstruction. No evidence suggesting enteritis or colitis. APPENDIX: No evidence of acute appendicitis on CT examination. PERITONEUM: Trace free fluid within the pelvis. No free air. LYMPH NODES: No lymphadenopathy is evident. REPRODUCTIVE: Unremarkable as visualized. VASCULATURE: No evidence of abdominal aortic aneurysm. BONES: Spine degenerative changes are seen. No aggressive appearing osseous lesion. No acute osseous pathology evident. Presumed bone island within the proximal right femur. A metallic device is seen along the anterior abdominal wall on the left side in the subcutaneous plane. IMPRESSION: 1. Minimal to mild peripancreatic fat stranding, suggesting possible mild pancreatitis. Correlate with amylase and lipase levels. 2. No evidence of bowel obstruction, perforation, or acute appendicitis. 3. Trace free fluid within the pelvis is of unknown clinical significance. /[place] DICTATED BY: AVANI ANDERSON Jr., MD DATE: 03/03/251430 ELECTRONICALLY SIGNED BY: AVANI ANDERSON Jr., MD DATE: 03/03/25 143 ASSESSMENT: Persistent nausea, vomiting POA Dehydration Periumbilical/right lower quadrant abdominal pain History of Esophageal obstruction status post EGD with balloon dilation Persistent nausea post procedure History of stenosis involving the anastomotic site of gastric bypass surgery s/p balloon dilation of gastric stenosis of anastomotic region today by Dr. Perez, 01/15/2025 History of marijuana use, POA Underlying history of obstructive sleep apnea, POA History of CVA five years ago, POA Hypertension, POA Type 2 diabetes mellitus, POA History of anxiety, POA History of depression, POA History of prior gastric bypass surgery in 2021, PLAN: Generalized abdominal pain-h/o gastric bypass, recurrent symptoms * Admit for further evaluation and symptom control * Patient to be admitted to medical-surgical unit with telemetry * Keep patient NPO until surgical evaluation is completed * Start IV fluids for hydration and electrolyte balance: Currently on normal saline 100 mL/hour. * Administer antiemetics Zofran 4 mg every 6 hours p.r.n. * Provide IV pain control: Adjust regimen given inadequate relief with current medications, but avoid excessive opioid escalation if possible * CT abdomen pelvis suggested: Minimal to mild peripancreatic fat stranding, suggesting possible mild pancreatitis. Correlate with amylase and lipid levels There is no evidence of bowel obstruction, perforation or acute appendicitis * His lipase is 59, within normal limits. * Patient has History of Esophageal obstruction status post EGD with balloon dilation 3 weeks back * His HBA1c level is 5.2. * Currently receiving Rocephin1 g. * Currently awaiting Gastroenterology recommendations for further evaluations and management. 03/04/25 Hypertension * Currently receiving losartan 50 mg per oral daily * He is also on metoprolol succinate 25 mg per oral daily * Continue monitoring his blood pressure, blood pressure this morning is 131/77. 03/04/25 Depression * Continue home regimen of sertraline 100 mg per oral and risperidone 0.25 mg b.i.d. * Assess mood, affect and thought content daily while inpatient * Monitor the patient regularly Supportive measures * Start patient on GI prophylaxis * DVT prophylaxis * Monitor morning labs CBC and BMP daily ATTESTATION BY PHYSICIAN I have seen and examined the patient. I reviewed the documentation, medical decision making, and treatment plan as noted by the resident provider above. I agree with the findings and plan of care. Anil Butterfield MD, SUZIT MD Mar 04, 2025 10:56
--- NOTE | 2025-03-04 14:20 | CONS ---
GASTROENTEROLOGY CONSULTATION NOTE Date of Consultation: Mar 04, 2025 Time of Consultation: 14:17 History of Present Illness: [54 yo male patient who presented to emergency room with complaints of nausea, vomiting, and abdominal pain. Patient has hx of gastric bypass in 2020 and developed gastric stenosis at the anastomotic site. We were consulted for abdominal pain, persistent, nausea and vomiting. The patient has history of gastric stenosis at the anastomosis. Patient has had numerous EGDS with dilation with last one being on 01/15/25. He was also found to have erythematous mucosa in gastric body. WBC 6.7, hgb 14.1, platelets of 227. CMP significant for sodium 135, calcium 8.3, total bilirubin 1.2, ASt 9, Alt 11, alkaline phos 87. Total protein 7.4, albumin 3.9, and lipase 59. CT chest/abd/pelvis findings: minimal to mild peripancreatic fat stranding with no evidence of small bowel obstruction, perforation, or acute appendicitis. Urine toxicology positive for marijuana. On exam, patient is resting in RL in no acute distress. BBS are clear. abdomen is soft but tender to epigastric region. Patient reports he last smoked marijuana 6 days ago. He reports having had vomiting but no hematemesis. Emphasize importance he abstains from smoking and importance in avoiding trigger foods such as foods with tomatoes, fried foods, caffeine, chocolate and dairy. Recommendations for EGD with possible need for dilation given. All his questions were answered and he agreed to proceed. ] Review of Systems: CONSTITUTIONAL: No malaise or change in sensation of wellbeing. ENMT: No rhinorrhea, otorrhea, sinus pain, ear ache. CARDIOVASCULAR: No angina, palpitations, orthopnea or paroxysmal dyspnea. RESPIRATORY: No SOB. GASTROINTESTINAL: No abdominal pain, nausea, vomiting, diarrhea, hematemesis, melena or change in the patient's habitual bowel movements consistency/number. GENITOURINARY: No dysuria, hematuria or change in bladder continence. MUSCULOSKELETAL: No new muscle pain or decrease in muscular strength. No new joint swelling, redness or tenderness. SKIN: No new rash. Past Medical History: Hypertension, hyperlipidemia, history of sleep apnea, history of coronary artery disease PAST SURGICAL HISTORY: Cholecystectomy, history of diagnostic laparoscopy with EGD, gastric stimulator, history of gastric bypass surgery] PAST SOCIAL HISTORY: Denied any smoking, alcohol use. He does smoke marijuana around once or twice a week FAMILY HISTORY: Denied any pertinent family history Coded Allergies: No Known Allergies (Verified Allergy, Unknown, 07/25/18) No Known Drug Allergies (Unverified Allergy, Unknown, 01/21/22) Physical Exam: GEN: Awake, alert, oriented in person, time and place, and in no acute distress. HEENT:No rhinorrhea. Oral pharyngeal mucosa is moist and within normal limits. CHEST: Lung auscultation revealed normal breath sounds bilaterally. CARDIAC: Heart sounds are regular. ABD: Soft,mildly tender to epigastric region. Abdomen nondistended. Normal bowel sounds. EXT: No cyanosis or clubbing. No edema. SKIN: Intact. No rashes. JOINTS: No evidence of synovitis or acute arthritis. NEURO: Alert and oriented to name, place and person. No focal motor deficits. Normal speech. Strength is normal. Vital Sign (Last 24 Hours) 03/04/25 03:36 Temp 98.2 Pulse 52 Resp 12 B/P (MAP) 131/77 Pulse Ox 100 O2 Delivery Room Air* O2 Flow Rate 0 FiO2 21 Intake & Output (last 24hrs) 03/03/25 03/03/25 03/04/25 15:00 23:00 07:00 Output Total 600 ml Balance -600 ml Laboratory: [ ] Laboratory: Test 03/04/25 07:36 03/03/25 09:38 03/03/25 09:35 Range/Units White Blood Count 6.7 4.8-10.8 K/uL Red Blood Count 4.51 4.50-6.20 MIL/uL Hemoglobin 14.1 14.0-18.0 g/dL Hematocrit 41.8 L 42-54 % Mean Corpuscular Volume 92.7 79-99 fL Mean Corpuscular Hemoglobin 31.3 27.0-33.0 pg Mean Corpuscular Hemoglobin Concent 33.7 32.0-36.0 g/dL Red Cell Distribution Width 12.1 11.0-15.5 % Platelet Count 227 130-400 K/uL Mean Platelet Volume 8.8 7.5-10.5 fL Immature Granulocyte % (Auto) 0.3 0-1 % Neutrophils (%) (Auto) 58.6 40.0-77.0 % Lymphocytes (%) (Auto) 29.7 21.0-51.0 % Monocytes (%) (Auto) 7.5 3.0-13.0 % Eosinophils (%) (Auto) 2.7 0.0-8.0 % Basophils (%) (Auto) 1.2 0.0-5.0 % Neutrophils # (Auto) 3.9 1.8-7.7 K/uL Lymphocytes # (Auto) 2.0 1.0-4.8 K/uL Monocytes # (Auto) 0.5 0.1-1.0 K/uL Eosinophils # (Auto) 0.18 0.00-0.70 K/uL Basophils # (Auto) 0.08 0.00-0.20 K/uL Absolute Immature Granulocyte (auto 0.02 0-1 K/uL Nucleated Red Blood Cells 0.0 0.0-0.19 % Sodium Level 135 L 136-145 mmol/L Potassium Level 4.3 3.5-5.1 mmol/L Chloride Level 103 101-111 mmol/L Carbon Dioxide Level 27 21-32 mmol/L Blood Urea Nitrogen 12 7-18 mg/dL Creatinine 0.7 0.5-1.3 mg/dL Glomerular Filtration Rate Calc 108 >90 mL/min Random Glucose 84 70-105 mg/dL Total Calcium 8.3 L 8.5-10.1 mg/dL Hemoglobin A1c 5.2 4.0-6.0 % Estimated Average Glucose (eAG) 103 70-126 mg/dL Lactic Acid Level 1.9 0.8-2.5 mmol/L Total Bilirubin 1.2 H 0.2-1.0 mg/dL Aspartate Amino Transf (AST/SGOT) 9 L 10-37 U/L Alanine Aminotransferase (ALT/SGPT) 11 L 12-78 U/L Alkaline Phosphatase 87 50-136 U/L Total Protein 7.4 6.0-8.3 g/dL Albumin 3.9 3.5-5.0 g/dL Lipase 59 16-77 U/L Procalcitonin < 0.05 L 0.05-0.5 ng/mL Thyroid Stimulating Hormone (TSH) 1.13 # 0.36-3.74 uIU/mL Urine Color YELLOW YELLOW Urine Appearance CLOUDY H CLEAR Urine pH 6.5 5.0-8.0 Urine Specific [place] 1.027 1.001-1.031 Urine Protein 30 H NEGATIVE mg/dL Urine Glucose (UA) NEGATIVE NEGATIVE mg/dL Urine Ketones NEGATIVE NEGATIVE mg/dL Urine Occult Blood NEGATIVE NEGATIVE Urine Nitrate NEGATIVE NEGATIVE Urine Bilirubin NEGATIVE NEGATIVE mg/dL Urine Urobilinogen >=8.0 H 0.2-1.0 mg/dL Urine Leukocyte Esterase NEGATIVE NEGATIVE Elvia/uL Urine RBC 26-50 H 0-1 /HPF Urine WBC 2-5 H 0-1 /HPF Urine Squamous Epithelial Cells MOD 0-2 /HPF Urine Calcium Oxalate Crystals RARE None Seen /LPF Urine Bacteria None None Seen /HPF Urine Opiates Screen NEGATIVE NEGATIVE Urine Barbiturates Screen NEGATIVE NEGATIVE Urine Phencyclidine Screen NEGATIVE NEGATIVE Urine Amphetamines Screen NEGATIVE NEGATIVE Urine Benzodiazepines Screen NEGATIVE NEGATIVE Urine Cocaine Screen NEGATIVE NEGATIVE Urine Marijuana (THC) Screen POSITIVE H NEGATIVE Current Medications Medications (Trade) Dose Ordered Sig/John Route PRN Reason Start Time Stop Time Status Last Admin Dose Admin Ceftriaxone Sodium (ROCEphine 1G INJ) 1 gm Q24H IVPB 03/03/25 15:30 03/13/25 15:29 03/03/25 16:41 1 GM Famotidine (Pepcid 20mg Vial) 20 mg BID IV 03/03/25 21:00 04/02/25 20:59 03/04/25 08:23 20 MG Folic Acid (FolVITE 5 MG/ML VIAL) 1 mg DAILY IV 03/04/25 09:00 04/03/25 08:59 03/04/25 08:40 1 MG Hydralazine HCl (APRESOLine 20MG INJ) 10 mg Q6H PRN IV ADMINISTER FOR SBP > 180 03/03/25 15:30 04/02/25 15:29 Hydromorphone HCl (DiLAUDid 0.5MG INJ) 0.2 mg Q6H PRN IVP SEVERE PAIN (7-10) 03/03/25 15:30 03/04/25 13:26 DC 03/04/25 08:24 0.2 MG Hydromorphone HCl (DiLAUDid 0.5MG INJ) 0.5 mg Q6H PRN IVP SEVERE PAIN (7-10) 03/04/25 15:30 03/09/25 15:29 Losartan Potassium (CozAAR 50 mg TAB) 50 mg AM PO 03/04/25 09:00 04/03/25 08:59 03/04/25 08:23 50 MG Metoprolol Succinate (TopROL XL) 25 mg DAILY PO 03/04/25 09:00 04/03/25 08:59 03/04/25 08:23 25 MG Ondansetron HCl (zoFRAN 4MG INJ) 4 mg Q6H PRN IVP NAUSEA/VOMITING 03/03/25 15:30 04/02/25 15:29 03/04/25 08:23 4 MG Risperidone (RisperDAL) 0.25 mg BID PO 03/03/25 21:00 04/02/25 20:59 Sertraline HCl (ZOloft 50 mg tab) 100 mg HS PO 03/03/25 21:00 04/02/25 20:59 Sodium Chloride 1,000 ml @ 100 mls/hr Q10H IV 03/03/25 15:30 04/02/25 15:29 03/04/25 06:49 100 MLS/HR Thiamine HCl (Vitamin B-1) 100 mg DAILY IVP 03/04/25 09:00 04/03/25 08:59 03/04/25 08:24 100 MG Diagnostics / Radiology: [COPY/PASTE HERE IF NO REPORTS PLEASE DELETE SECTION] Assessment: [ Abdominal pain Nausea and vomiting Hypertension History of gastric bypass stricture at anastomosis. ] Plan: Case discussed with Dr. Kim. [Clear fluids today Npo after midnight Plan for EGD in am. All his questions were answered to his satisfaction and he agreed to proceed. Trend daily hgb. ] Please call with questions, concerns, and change in clinical status. Thank you for this consult. EDUIN FERRARI NP Mar 04, 2025 14:20
--- NOTE | 2025-03-04 16:02 | NUR ---
GAVE REPORT TO CORIN PANG, PATIENT WAS TRANSPORTED VIA ER BED WITH ALL HIS BELONGINGS TO ROOM #417.
[2025-03-04 16:30] VITALS: O2SAT 95
[2025-03-04 16:45] VITALS: BP 130/75; PULSE 56; RESP 18; TEMP 97.5
[2025-03-04 20:00] VITALS: BP 129/75; PULSE 64; RESP 17; TEMP 98.3
[2025-03-04 20:10] VITALS: O2SAT 98
[2025-03-05] VITALS (22 sets, daily range): BP systolic 111–152; BP diastolic 56–83; PULSE 55–71; RESP 15–18; TEMP 97.7–98.3; O2SAT 95–98
[2025-03-05 04:41] LABS: NUCLEATED RED BLOOD CELLS 0.0 % (0.0-0.19); PLATELET COUNT (AUTO) 223.0 K/uL (130-400); RED BLOOD CELL COUNT(AUTO) 4.25 MIL/uL (4.50-6.20); RED CELL DISTRIBUTION WIDTH 11.9 % (11.0-15.5); WHITE BLOOD COUNT (AUTO) 6.1 K/uL (4.8-10.8)
[2025-03-05 04:56] LABS: CREATININE 0.6 mg/dL (0.5-1.3); GLOMERULAR FILTR. RATE CALC 113.0 mL/min (>90); GLUCOSE,RANDOM 76.0 mg/dL (70-105); SODIUM SERUM 133.0 mmol/L (136-145); UREA NITROGEN, BLOOD 9.0 mg/dL (7-18)
[2025-03-05 07:33] LABS: INR 1.07 (0.85-1.15)
[2025-03-05] MEDS ORDERED: MIDAZOLAM HCL 1 MG/ML 2ML VIAL ONE (13:09)
[2025-03-05] MEDS ORDERED: LIDOCAINE PF 100MG/5ML (2%) SYRINGE 5ML ONE ×3 (13:10→14:38)
[2025-03-05] MEDS ORDERED: GLYCOPYRROLATE 0.2 MG/ML 5 ML VIAL ONE (13:24)
--- NOTE | 2025-03-05 15:49 | PN ---
GASTROENTEROLOGY PROGRESS NOTE Date of Visit: Mar 05, 2025 Time of Visit: 15:47 Events / Notes: [ Patient underwent EGD and was found to have anastomotic ulcer and moderate stricture and was dilated with scope passage. Recommendations to repeat EGD in 2-3 weeks as outpatient. Patient instructed to avoid spicy foods, caffeine, chocolate, tomato base foods, fried foods, avoid marijuana, and avoid any other trigger foods. ] Review of Systems: CONSTITUTIONAL: No malaise or change in sensation of wellbeing. ENMT: No rhinorrhea, otorrhea, sinus pain, ear ache. CARDIOVASCULAR: No angina, palpitations, orthopnea or paroxysmal dyspnea. RESPIRATORY: No SOB. GASTROINTESTINAL: No abdominal pain, nausea, vomiting, diarrhea, hematemesis, melena or change in the patient's habitual bowel movements consistency/number. GENITOURINARY: No dysuria, hematuria or change in bladder continence. MUSCULOSKELETAL: No new muscle pain or decrease in muscular strength. No new joint swelling, redness or tenderness. SKIN: No new rash. Physical Exam: GEN: Awake, alert, oriented in person, time and place, and in no acute distress. HEENT:No rhinorrhea. Oral pharyngeal mucosa is moist and within normal limits. CHEST: Lung auscultation revealed normal breath sounds bilaterally. CARDIAC: Heart sounds are regular. ABD: Soft,mildly tender to epigastric region. Abdomen nondistended. Normal bowel sounds. EXT: No cyanosis or clubbing. No edema. SKIN: Intact. No rashes. JOINTS: No evidence of synovitis or acute arthritis. NEURO: Alert and oriented to name, place and person. No focal motor deficits. Normal speech. Strength is normal. Vital Signs (last 8hr) Date Time Temp Pulse Resp B/P (MAP) Pulse Ox O2 Delivery O2 Flow Rate FiO2 03/05/25 15:12 62 18 133/77 99 Room Air 21 03/05/25 15:07 64 17 143/72 99 Room Air 21 03/05/25 15:02 65 18 144/78 98 Room Air 21 03/05/25 14:57 70 16 151/77 100 Nonrebreathing Mask 10.0 100 03/05/25 14:52 69 18 152/83 100 Nonrebreathing Mask 10.0 100 03/05/25 14:47 97.7 71 15 147/67 100 Nonrebreathing Mask 10.0 100 03/05/25 14:37 Mask 10.0 03/05/25 14:37 Mask 03/05/25 12:02 98.2 60 18 121/66 97 Room Air 03/05/25 08:00 98.1 59 18 113/71 95 Room Air Laboratory: [ ] Laboratory: Test 03/05/25 07:09 03/05/25 03:52 03/04/25 07:36 Range/Units Prothrombin Time 11.3 9.6-11.6 SEC Prothromb Time International Ratio 1.07 0.85-1.15 Activated Partial Thromboplast Time 29.6 26.3-35.5 SEC White Blood Count 6.1 4.8-10.8 K/uL Red Blood Count 4.25 L 4.50-6.20 MIL/uL Hemoglobin 13.2 L 14.0-18.0 g/dL Hematocrit 37.7 L 42-54 % Mean Corpuscular Volume 88.7 79-99 fL Mean Corpuscular Hemoglobin 31.1 27.0-33.0 pg Mean Corpuscular Hemoglobin Concent 35.0 32.0-36.0 g/dL Red Cell Distribution Width 11.9 11.0-15.5 % Platelet Count 223 130-400 K/uL Mean Platelet Volume 9.0 7.5-10.5 fL Nucleated Red Blood Cells 0.0 0.0-0.19 % Sodium Level 133 L 136-145 mmol/L Potassium Level 3.4 L 3.5-5.1 mmol/L Chloride Level 99 L 101-111 mmol/L Carbon Dioxide Level 24 21-32 mmol/L Blood Urea Nitrogen 9 7-18 mg/dL Creatinine 0.6 0.5-1.3 mg/dL Glomerular Filtration Rate Calc 113 >90 mL/min Random Glucose 76 70-105 mg/dL Total Calcium 8.5 8.5-10.1 mg/dL Immature Granulocyte % (Auto) 0.3 0-1 % Neutrophils (%) (Auto) 58.6 40.0-77.0 % Lymphocytes (%) (Auto) 29.7 21.0-51.0 % Monocytes (%) (Auto) 7.5 3.0-13.0 % Eosinophils (%) (Auto) 2.7 0.0-8.0 % Basophils (%) (Auto) 1.2 0.0-5.0 % Neutrophils # (Auto) 3.9 1.8-7.7 K/uL Lymphocytes # (Auto) 2.0 1.0-4.8 K/uL Monocytes # (Auto) 0.5 0.1-1.0 K/uL Eosinophils # (Auto) 0.18 0.00-0.70 K/uL Basophils # (Auto) 0.08 0.00-0.20 K/uL Absolute Immature Granulocyte (auto 0.02 0-1 K/uL Current Medications Medications (Trade) Dose Ordered Sig/John Route PRN Reason Start Time Stop Time Status Last Admin Dose Admin Ceftriaxone Sodium (ROCEphine 1G INJ) 1 gm Q24H IVPB 03/03/25 15:30 03/13/25 15:29 03/04/25 14:32 1 GM Famotidine (Pepcid 20mg Vial) 20 mg BID IV 03/03/25 21:00 04/02/25 20:59 03/04/25 20:13 20 MG Folic Acid (FolVITE 5 MG/ML VIAL) 1 mg DAILY IV 03/04/25 09:00 04/03/25 08:59 03/04/25 08:40 1 MG Hydralazine HCl (APRESOLine 20MG INJ) 10 mg Q6H PRN IV ADMINISTER FOR SBP > 180 03/03/25 15:30 04/02/25 15:29 Hydromorphone HCl (DiLAUDid 0.5MG INJ) 0.2 mg Q6H PRN IVP SEVERE PAIN (7-10) 03/03/25 15:30 03/04/25 13:26 DC 03/04/25 08:24 0.2 MG Hydromorphone HCl (DiLAUDid 0.5MG INJ) 0.5 mg Q6H PRN IVP SEVERE PAIN (7-10) 03/04/25 15:00 03/09/25 14:59 03/04/25 21:20 0.5 MG Hydromorphone HCl (DiLAUDid 0.5MG INJ) 0.5 mg Q6H PRN IVP SEVERE PAIN (7-10) 03/04/25 15:30 03/04/25 14:31 DC Losartan Potassium (CozAAR 50 mg TAB) 50 mg AM PO 03/04/25 09:00 04/03/25 08:59 03/04/25 08:23 50 MG Metoprolol Succinate (TopROL XL) 25 mg DAILY PO 03/04/25 09:00 04/03/25 08:59 03/04/25 08:23 25 MG Ondansetron HCl (zoFRAN 4MG INJ) 4 mg Q6H PRN IVP NAUSEA/VOMITING 03/03/25 15:30 04/02/25 15:29 03/05/25 06:33 4 MG Potassium Chloride 100 ml @ 50 mls/hr AD PRN IV POTASSIUM PROTOCOL 03/05/25 09:30 04/04/25 09:29 Risperidone (RisperDAL) 0.25 mg BID PO 03/03/25 21:00 04/02/25 20:59 03/04/25 21:19 0.25 MG Sertraline HCl (ZOloft 50 mg tab) 100 mg HS PO 03/03/25 21:00 04/02/25 20:59 03/04/25 21:19 100 MG Sodium Chloride 1,000 ml @ 100 mls/hr Q10H IV 03/03/25 15:30 04/02/25 15:29 03/04/25 20:13 100 MLS/HR Thiamine HCl (Vitamin B-1) 100 mg DAILY IVP 03/04/25 09:00 04/03/25 08:59 03/04/25 08:24 100 MG Diagnostics / Radiology: [COPY/PASTE HERE IF NO REPORTS PLEASE DELETE SECTION] Assessment: [ Abdominal pain Nausea and vomiting Hypertension History of gastric bypass stricture at anastomosis. ] Plan: Case discussed with Dr. Kim. [Clear fluids today Npo after midnight Plan for EGD in am. All his questions were answered to his satisfaction and he agreed to proceed. Trend daily hgb. ] Please call with questions, concerns, and change in clinical status. Thank you for this consult. EDUIN FERRARI NP Mar 05, 2025 15:49
[2025-03-05] MEDS: SUCRALFATE 1 GM/10 ML PO SCH (17:27)
--- NOTE | 2025-03-05 17:47 | PN ---
[facility] PROGRESS NOTE Date of Service: Mar 05, 2025 Time of Service: 17:40 SUBJECTIVE: This is a 54-year-old male with past medical history of hypertension, hyperlipidemia, history of sleep apnea, coronary artery disease who presented to the hospital secondary to abdominal pain and nausea and vomiting. The patient states he has had a history of esophageal stricture and has needed balloon dilation in the past by Dr. Perez. He also has a history of stenosis involving the anastomotic site of gastric bypass surgery and has had undergone balloon dilation of gastric stenosis of anastomotic region by Dr. Perez before. Patient has noted pain in the periumbilical area which has been ongoing for the past three weeks. He has also had associated nausea with vomiting at home. He has been able to tolerate liquids but feels nauseated after eating. Denies any changes in his bowel movement. Denies any melena, hematochezia, hematemesis. Patient states his periumbilical pain has remained persistent for the past three weeks after he had a esophageal dilation performed by Dr. Perez. He noted some black stools after procedure. His stool has been normal colored recently. Denied any hematemesis, chest pain, shortness of breath, cough, dysuria. He has noted fever and chills at home. Labs were notable for white count of 8.1, hemoglobin was 14.4, platelet count was 296 K, sodium was 135, potassium was 3.6, creatinine was 1.[address] a CT chest done which showed minimal to mild varma creatinine fat stranding. Co ncern for mild pancreatitis. There was no evidence of bowel obstruction, perforation, appendicitis. There was trace fluid noted in the pelvis of unknown origin. Patient to be admitted to medical-surgical unit with telemetry. 03/04/25 Patient was evaluated at the bedside ED in 05. He complains of generalized abdominal pain associated with nausea and vomiting. He denies fever, chills, recent illness, shortness of breath or chest pain. He states that his current medications are not adequately controlling his discomfort and is requesting an increase the adjusted doses. He has a history of gastric bypass surgery 4 years ago and notes that he has experienced recurrence of similar symptoms since then. No additional complaints at this time. 03/05/25 Patient was evaluated at the bedside. His symptoms has gradually improved. He does not complain of nausea, vomiting and abdominal pain. No any acute overnight events. Patient underwent EGD today and was found to have anastomotic ulcer and moderate stricture and was dilated with scope passage. REVIEW OF SYSTEMS CONSTITUTIONAL: Denies fevers, chills, or night sweats. No unintentional weight loss reported. NEUROLOGICAL: Denies headache, motor weakness, sensory deficit. CARDIOVASCULAR: Denies any exertional angina, dyspnea on exertion, orthopnea. PULMONARY: Denies any shortness of breath, cough, phlegm/sputum, hemoptysis, pleuritic chest pain. GASTROINTESTINAL: No nausea and vomiting. Abdominal pain significantly improved. Denied any melena, hematochezia, hematemesis. GENITOURINARY: Denies frequency, urgency, nocturia. PHYSICAL EXAM GENERAL APPEARANCE: The patient is awake, alert, and oriented, in no acute cardiopulmonary distress. NEUROLOGICAL: Motor and sensory intact. CHEST: Normal chest expansion. LUNGS: Absence of any rales, rhonchi or any wheezing. CARDIOVASCULAR: Regular. S1 and S2 normal. No appreciable rubs, murmurs. ABDOMEN: Abdomen is soft and minimal tenderness. There is no rebound, voluntary guarding, or rigidity. EXTREMITIES: Non-edematous and not cyanotic. Vital Signs (last 8hr) Date Time Temp Pulse Resp B/P (MAP) Pulse Ox O2 Delivery O2 Flow Rate FiO2 03/05/25 15:12 62 18 133/77 99 Room Air 21 03/05/25 15:07 64 17 143/72 99 Room Air 21 03/05/25 15:02 65 18 144/78 98 Room Air 21 03/05/25 14:57 70 16 151/77 100 Nonrebreathing Mask 10.0 100 03/05/25 14:52 69 18 152/83 100 Nonrebreathing Mask 10.0 100 03/05/25 14:47 97.7 71 15 147/67 100 Nonrebreathing Mask 10.0 100 03/05/25 14:37 Mask 10.0 03/05/25 14:37 Mask 03/05/25 12:02 98.2 60 18 121/66 97 Room Air LABS: Laboratory: Test 03/05/25 07:09 03/05/25 03:52 03/04/25 07:36 Range/Units Prothrombin Time 11.3 9.6-11.6 SEC Prothromb Time International Ratio 1.07 0.85-1.15 Activated Partial Thromboplast Time 29.6 26.3-35.5 SEC White Blood Count 6.1 4.8-10.8 K/uL Red Blood Count 4.25 L 4.50-6.20 MIL/uL Hemoglobin 13.2 L 14.0-18.0 g/dL Hematocrit 37.7 L 42-54 % Mean Corpuscular Volume 88.7 79-99 fL Mean Corpuscular Hemoglobin 31.1 27.0-33.0 pg Mean Corpuscular Hemoglobin Concent 35.0 32.0-36.0 g/dL Red Cell Distribution Width 11.9 11.0-15.5 % Platelet Count 223 130-400 K/uL Mean Platelet Volume 9.0 7.5-10.5 fL Nucleated Red Blood Cells 0.0 0.0-0.19 % Sodium Level 133 L 136-145 mmol/L Potassium Level 3.4 L 3.5-5.1 mmol/L Chloride Level 99 L 101-111 mmol/L Carbon Dioxide Level 24 21-32 mmol/L Blood Urea Nitrogen 9 7-18 mg/dL Creatinine 0.6 0.5-1.3 mg/dL Glomerular Filtration Rate Calc 113 >90 mL/min Random Glucose 76 70-105 mg/dL Total Calcium 8.5 8.5-10.1 mg/dL Immature Granulocyte % (Auto) 0.3 0-1 % Neutrophils (%) (Auto) 58.6 40.0-77.0 % Lymphocytes (%) (Auto) 29.7 21.0-51.0 % Monocytes (%) (Auto) 7.5 3.0-13.0 % Eosinophils (%) (Auto) 2.7 0.0-8.0 % Basophils (%) (Auto) 1.2 0.0-5.0 % Neutrophils # (Auto) 3.9 1.8-7.7 K/uL Lymphocytes # (Auto) 2.0 1.0-4.8 K/uL Monocytes # (Auto) 0.5 0.1-1.0 K/uL Eosinophils # (Auto) 0.18 0.00-0.70 K/uL Basophils # (Auto) 0.08 0.00-0.20 K/uL Absolute Immature Granulocyte (auto 0.02 0-1 K/uL Current Medications Medications (Trade) Dose Ordered Sig/John Route PRN Reason Start Time Stop Time Status Last Admin Dose Admin Ceftriaxone Sodium (ROCEphine 1G INJ) 1 gm Q24H IVPB 03/03/25 15:30 03/13/25 15:29 03/05/25 15:48 1 GM Famotidine (Pepcid 20mg Vial) 20 mg BID IV 03/03/25 21:00 03/05/25 16:03 DC 03/04/25 20:13 20 MG Folic Acid (FolVITE 5 MG/ML VIAL) 1 mg DAILY IV 03/04/25 09:00 04/03/25 08:59 03/04/25 08:40 1 MG Hydralazine HCl (APRESOLine 20MG INJ) 10 mg Q6H PRN IV ADMINISTER FOR SBP > 180 03/03/25 15:30 04/02/25 15:29 Hydromorphone HCl (DiLAUDid 0.5MG INJ) 0.2 mg Q6H PRN IVP SEVERE PAIN (7-10) 03/03/25 15:30 03/04/25 13:26 DC 03/04/25 08:24 0.2 MG Hydromorphone HCl (DiLAUDid 0.5MG INJ) 0.5 mg Q6H PRN IVP SEVERE PAIN (7-10) 03/04/25 15:00 03/09/25 14:59 03/04/25 21:20 0.5 MG Hydromorphone HCl (DiLAUDid 0.5MG INJ) 0.5 mg Q6H PRN IVP SEVERE PAIN (7-10) 03/04/25 15:30 03/04/25 14:31 DC Losartan Potassium (CozAAR 50 mg TAB) 50 mg AM PO 03/04/25 09:00 04/03/25 08:59 03/04/25 08:23 50 MG Metoprolol Succinate (TopROL XL) 25 mg DAILY PO 03/04/25 09:00 04/03/25 08:59 03/04/25 08:23 25 MG Ondansetron HCl (zoFRAN 4MG INJ) 4 mg Q6H PRN IVP NAUSEA/VOMITING 03/03/25 15:30 04/02/25 15:29 03/05/25 06:33 4 MG Pantoprazole Sodium (PROTonix 40MG TAB) 40 mg BID PO 03/05/25 21:00 04/04/25 20:59 Potassium Chloride 100 ml @ 50 mls/hr AD PRN IV POTASSIUM PROTOCOL 03/05/25 09:30 04/04/25 09:29 03/05/25 17:27 50 MLS/HR Risperidone (RisperDAL) 0.25 mg BID PO 03/03/25 21:00 04/02/25 20:59 03/04/25 21:19 0.25 MG Sertraline HCl (ZOloft 50 mg tab) 100 mg HS PO 03/03/25 21:00 04/02/25 20:59 03/04/25 21:19 100 MG Sodium Chloride 1,000 ml @ 100 mls/hr Q10H IV 03/03/25 15:30 04/02/25 15:29 03/04/25 20:13 100 MLS/HR Sucralfate (Carafate) 1 gm QID PO 03/05/25 17:00 04/04/25 16:59 03/05/25 17:27 1 GM Thiamine HCl (Vitamin B-1) 100 mg DAILY IVP 03/04/25 09:00 04/03/25 08:59 03/04/25 08:24 100 MG DIAGNOSTICS / RADIOLOGY: [ ] ASSESSMENT: Persistent nausea, vomiting POA Dehydration Periumbilical/right lower quadrant abdominal pain History of Esophageal obstruction status post EGD with balloon dilation Persistent nausea post procedure History of stenosis involving the anastomotic site of gastric bypass surgery s/p balloon dilation of gastric stenosis of anastomotic region today by Dr. Perez, 01/15/2025 History of marijuana use, POA Underlying history of obstructive sleep apnea, POA History of CVA five years ago, POA Hypertension, POA Type 2 diabetes mellitus, POA History of anxiety, POA History of depression, POA History of prior gastric bypass surgery in 2021, PLAN: Generalized abdominal pain-h/o gastric bypass, recurrent symptoms * Admit for further evaluation and symptom control * Patient to be admitted to medical-surgical unit with telemetry * Keep patient NPO until surgical evaluation is completed * Start IV fluids for hydration and electrolyte balance: Currently on normal saline 100 mL/hour. * Administer antiemetics Zofran 4 mg every 6 hours p.r.n. * Provide IV pain control: Adjust regimen given inadequate relief with current medications, but avoid excessive opioid escalation if possible * CT abdomen pelvis suggested: Minimal to mild peripancreatic fat stranding, suggesting possible mild pancreatitis. Correlate with amylase and lipid levels There is no evidence of bowel obstruction, perforation or acute appendicitis * His lipase is 59, within normal limits. * Patient has History of Esophageal obstruction status post EGD with balloon dilation 3 weeks back * His HBA1c level is 5.2. * Currently receiving Rocephin1 g. * Currently awaiting Gastroenterology recommendations for further evaluations and management. 03/04/25 * Patient underwent EGD and was found to have anastomotic ulcer and moderate stricture and was dilated with scope passage. Recommendations to repeat EGD in 2-3 weeks as outpatient. 03/05/25 Hypertension * Currently receiving losartan 50 mg per oral daily * He is also on metoprolol succinate 25 mg per oral daily * Continue monitoring his blood pressure, blood pressure this morning is 131/77. 03/04/25 Depression * Continue home regimen of sertraline 100 mg per oral and risperidone 0.25 mg b .i.d. * Assess mood, affect and thought content daily while inpatient * Monitor the patient regularly Supportive measures * Start patient on GI prophylaxis * DVT prophylaxis * Monitor morning labs CBC and BMP daily ATTESTATION BY PHYSICIAN I have seen and examined the patient. I reviewed the documentation, medical decision making, and treatment plan as noted by the resident provider above. I agree with the findings and plan of care. ELLIOTT IZQUIERDO MD HAYLEE MIKE MD Mar 05, 2025 17:47
[2025-03-06 04:00] VITALS: BP 105/68; PULSE 61; RESP 17; TEMP 98.1
[2025-03-06 04:44] LABS: NUCLEATED RED BLOOD CELLS 0.0 % (0.0-0.19); PLATELET COUNT (AUTO) 200.0 K/uL (130-400); RED BLOOD CELL COUNT(AUTO) 3.99 MIL/uL (4.50-6.20); RED CELL DISTRIBUTION WIDTH 11.8 % (11.0-15.5); WHITE BLOOD COUNT (AUTO) 6.6 K/uL (4.8-10.8)
[2025-03-06 05:11] LABS: ASPARTATE AMINOTRANSFERASE 9.0 U/L (10-37); CREATININE 0.7 mg/dL (0.5-1.3); GLOMERULAR FILTR. RATE CALC 108.0 mL/min (>90); GLUCOSE,RANDOM 88.0 mg/dL (70-105); SODIUM SERUM 133.0 mmol/L (136-145); TOTAL PROTEIN, SERUM 6.5 g/dL (6.0-8.3); UREA NITROGEN, BLOOD 9.0 mg/dL (7-18)
[2025-03-06 08:00] VITALS: BP 135/74; PULSE 68; RESP 18; TEMP 98.2; O2SAT 98
[2025-03-06] MEDS ORDERED: COMPOUND IV REFRIGERATED 1 EACH IVSOLN MISC PRN (08:00)
[2025-03-06] MEDS ORDERED: PANT40TA PO (11:56)
[2025-03-06] MEDS ORDERED: SUCR1ORA15 PO (11:56)
[2025-03-06 12:00] VITALS: BP 120/66; PULSE 60; RESP 20; TEMP 98
--- NOTE | 2025-03-06 14:29 | DS ---
Discharge Summary Hospital Course Summary: The patient is a 54-year-old male with a history of hypertension, hyperlipidemia, sleep apnea, coronary artery disease, and prior gastric bypass surgery who presented with several weeks of periumbilical abdominal pain, nausea, and vomiting. He has a known history of esophageal stricture and anastomotic gastric stenosis, previously treated with balloon dilation. He reported that his pain and nausea had persisted since his last esophageal dilation, and he experienced black stools after the procedure, though his stool had been normal colored recently. He denied melena, hematochezia, hematemesis, chest pain, shortness of breath, cough, or dysuria, but did note fever and chills at home. On admission, laboratory studies were notable for mild leukocytosis and a normal hemoglobin. Renal function and electrolytes were within normal limits. CT chest revealed minimal to mild pancreatic fat stranding, raising concern for mild pancreatitis, but there was no evidence of bowel obstruction, perforation, or appendicitis. Trace pelvic fluid was noted. The patient was admitted to the medical-surgical unit with telemetry for further monitoring and management. During his hospital stay, the patient continued to report generalized abdominal pain with associated nausea and vomiting, but denied fever, chills, or other systemic symptoms. He was able to tolerate liquids but felt nauseated after eating. He requested adjustment of his pain regimen, as his current medications were not adequately controlling his discomfort. He also reported a recurrence of similar symptoms to those experienced after his previous gastric bypass surgery and balloon dilation. The patient was managed conservatively with IV fluids, antiemetics, and pain control. His symptoms gradually improved over the course of his admission. He did not experience any further episodes of nausea, vomiting, or abdominal pain, and there were no acute overnight events. Gastroenterology was consulted, and the patient underwent EGD, which revealed an anastomotic ulcer and moderate stricture at the gastric bypass site. The stricture was successfully dilated during the procedure. By the time of discharge, the patients symptoms had resolved. He was tolerating oral intake and was hemodynamically stable. He was discharged with recommendations for continued outpatient follow-up with gastroenterology for further management of his anastomotic ulcer and stricture, as well as ongoing monitoring of his nutritional status and pain control. Box Printer(s): General Surgery: Dr Kim Procedure(s): 1. Esophagogastroduodenoscopy [facility] [id number] [address] IMAGING REPORT Signed PATIENT: PAPITO GODDARD MR#: [id number] : 1970 SEX: M AGE: 54 LOCATION: EDH ORDER 2 STATUS: REG ER REPORT#: [id number] SERVICE 0920 REASON: abdominal pain post esophageal balloon dilation ORDERING PHYSICIAN: JASMEET RUIZ MD PROCEDURE: CXR1VW - CHEST 1VW EXAM: CR Chest, 1 View. CLINICAL HISTORY: abdominal pain post esophageal balloon dilation COMPARISON: None provided. FINDINGS: LUNGS: The lungs show no infiltrate or other acute finding. PLEURAL SPACES: No evidence of pleural effusion or pneumothorax. MEDIASTINUM: The cardiomediastinal silhouette is within normal limits. BONES: No aggressive appearing osseous lesion seen. IMPRESSION: No acute cardiopulmonary pathology is evident. /[place] DICTATED BY: MICHAEL MOON MD DATE: 03/03/251119 ELECTRONICALLY SIGNED BY: MICHAEL MOON MD DATE: 03/03/[address] [address] IMAGING REPORT Signed PATIENT: PAPITO GODDARD MR#: [id number] : 1970 SEX: M AGE: 54 LOCATION: ED ORDER 1038 STATUS: REG ER REPORT#: [id number] SERVICE 1033 REASON: abdominal pain post esophageal dilation ORDERING PHYSICIAN: JASMEET RUIZ MD PROCEDURE: CAP W - CT CHEST/ABD/PELV W/CONRAST EXAM: CT Chest with Intravenous Contrast. CT Abdomen and Pelvis with Intravenous Contrast CLINICAL HISTORY: abdominal pain post esophageal dilation TECHNIQUE: Axial computed tomography images of the chest, abdomen and pelvis with intravenous contrast. CONTRAST: None. COMPARISON: CT ABD/PELVIS dated 10/28/2024 FINDINGS: LUNG BASES: The lung bases appear clear. No pleural effusions are seen. LIVER: Unremarkable. GALLBLADDER AND BILE DUCTS: Gallbladder not visualized, post-cholecystectomy status. No biliary ductal dilatation is evident. PANCREAS: Minimal to mild peripancreatic fat stranding. Suggested amylase/lipase correlation. SPLEEN: Unremarkable. ADRENAL GLANDS: Unremarkable. KIDNEYS, URETERS, AND BLADDER: Kidneys appear within normal limits. There is no hydronephrosis or hydroureter. No urinary calculi are seen. STOMACH AND BOWEL: Esophagus demonstrate appropriate CT appearance. Metallic wires are seen along the cardiac stomach reflecting prior gastric bypass. Otherwise, unremarkable appearance of the stomach and bowel. No evidence of bowel obstruction. No evidence suggesting enteritis or colitis. APPENDIX: No evidence of acute appendicitis on CT examination. PERITONEUM: Trace free fluid within the pelvis. No free air. LYMPH NODES: No lymphadenopathy is evident. REPRODUCTIVE: Unremarkable as visualized. VASCULATURE: No evidence of abdominal aortic aneurysm. BONES: Spine degenerative changes are seen. No aggressive appearing osseous lesion. No acute osseous pathology evident. Presumed bone island within the proximal right femur. A metallic device is seen along the anterior abdominal wall on the left side in the subcutaneous plane. IMPRESSION: 1. Minimal to mild peripancreatic fat stranding, suggesting possible mild pancreatitis. Correlate with amylase and lipase levels. 2. No evidence of bowel obstruction, perforation, or acute appendicitis. 3. Trace free fluid within the pelvis is of unknown clinical significance. /[place] DICTATED BY: AVANI ANDERSON Jr., MD DATE: 03/03/25 143 ELECTRONICALLY SIGNED BY: AVANI ANDERSON Jr., MD DATE: 03/03/25 1431 Assessment/Plan: ASSESSMENT: Persistent nausea, vomiting POA Dehydration Periumbilical/right lower quadrant abdominal pain Gastrojejunal anastomosis obstruction History of Esophageal obstruction status post EGD with balloon dilation Persistent nausea post procedure History of stenosis involving the anastomotic site of gastric bypass surgery s/p balloon dilation of gastric stenosis of anastomotic region today by Dr. Perez, 01/15/2025 History of marijuana use, POA Underlying history of obstructive sleep apnea, POA History of CVA five years ago, POA Hypertension, POA Type 2 diabetes mellitus, POA History of anxiety, POA History of depression, POA History of prior gastric bypass surgery in 2021, Discharge Instructions: Please continue clear liquid diet, as ordered by GI doctor. Please follow up in GI clinic in 1 week, . Repeat EGD in 2-3 weeks for dilation of anastomotic stricture. Please follow up with your PCP within 1 week upon discharge. Continue medications as directed Home Medications: Active Scripts Sucralfate (Sucralfate) 1 Gram/10 Ml Oral.susp, 1 GM PO QID for 30 Days, #10 ML 0 Refills Prov:MIHAI MUSA MD 03/06/25 Pantoprazole Sodium (Protonix) 40 Mg Tablet.dr, 40 MG PO BID, #60 TAB 0 Refills Prov:MIHAI MUSA MD 03/06/25 Reported Medications Ferrous Sulfate (Iron) 325 Mg (65 Mg Iron) Tablet, 1 TAB PO DAILY for 30 Days, #30 TAB 0 Refills 10/28/24 Cyanocobalamin (Vitamin B-12) (Vitamin B-12) 1,000 Mcg Capsule, 1000 MCG PO DAILY, CAP 10/28/24 Docusate Sodium (Docusate Sodium) 100 Mg Capsule, 100 MG PO BID, CAP 10/28/24 Sertraline HCl (Sertraline HCl) 100 Mg Tablet, 100 MG PO HS, TAB 10/28/24 Metoprolol Succinate (Metoprolol Succinate) 25 Mg Tab.er.24h, 25 MG PO DAILY, TAB 25 Losartan Potassium (Losartan Potassium) 50 Mg Tablet, 50 MG PO AM, TAB 25 Hydrocodone/Acetaminophen (Hydrocodon-Acetaminophn 10-325) 10 Mg-325 Mg Tablet, 1 EACH PO QIDP PRN for PAIN, TAB 10/28/24 Promethazine HCl (Promethazine HCl) 25 Mg Tablet, 25 MG PO AD PRN for NAUSEA/VOMITING, TAB 25 Metoclopramide HCl (Metoclopramide HCl) 10 Mg Tablet, 10 MG PO QID, TAB 25 Risperidone (Risperidone) 0.25 Mg Tablet, 0.25 MG PO BID, TAB 25 Time spent arranging discharge: 31-60 minutes ATTESTATION BY PHYSICIAN I have seen and examined the patient. I reviewed the documentation, medical decision making, and treatment plan as noted by the resident provider above. I agree with the findings and plan of care. ELLIOTT IZQUIERDO MD [facility],HAYLEE ALONSO Mar 06, 2025 14:29
== END 2025-03-06 13:46 | disposition home or self-care (01) | DRG 380 ==
LOC: EDH 09:02 → EDHIP 15:13 → 4CH 03-04 16:45
PROVIDERS: ADMIT Internal Medicine; ATTEND Internal Medicine
PROC: 0DB68ZX Excision of Stomach, Via Natural or Artificial Opening Endoscopic, Diagnostic (ICD-10-PCS; principal; 2025-03-05)
PROC: 05HY33Z Insertion of Infusion Device into Upper Vein, Percutaneous Approach (ICD-10-PCS; 2025-03-05)
DX: K28.9 Gastrojejunal ulcer, unspecified as acute or chronic, without hemorrhage or perforation (principal); K85.90 Acute pancreatitis without necrosis or infection, unspecified; K95.89 Other complications of other bariatric procedure; K29.70 Gastritis, unspecified, without bleeding; E86.0 Dehydration; K22.2 Esophageal obstruction; E11.9 Type 2 diabetes mellitus without complications; E78.5 Hyperlipidemia, unspecified; I10 Essential (primary) hypertension; K25.9 Gastric ulcer, unspecified as acute or chronic, without hemorrhage or perforation; I25.10 Atherosclerotic heart disease of native coronary artery without angina pectoris; F32.A Depression, unspecified; F41.9 Anxiety disorder, unspecified; Z86.73 Personal history of transient ischemic attack (TIA), and cerebral infarction without residual deficits; Z98.84 Bariatric surgery status
CPT/HCPCS: 36415; 36556; 43239; 71045; 71260; 74177; 80048; 80053; 80305; 81001; 83036; 83605; 83690; 84145; 84443; 85025; 85027; 85610; 85730; 86850; 86900; 86901; 87040; 88305; 88312; 93005; 96374; 96375; 99285; A4606; C1894; G0378; J0696; J1171; J2003; J2250; J2371; J2405; J2704; J3010; J3411; J3480; J3490; J7030; Q9967; A4215; A4222; A4223; A4620; C1751; J1308